=== PATIENT | female | born 1950 | race Caucasian/White ===

== ENCOUNTER 2019-08-20 17:04 | Inpatient (IN) | payer MEDICARE, BC ==
[2019-08-20] VITALS (18 sets, daily range): BP systolic 110–147; BP diastolic 67–95
[~2019-08-20] VITALS: Ht 162.6 cm; Wt 67.1 kg
[2019-08-20] MEDS ORDERED: MORPHINE SULFATE 4 MG/ML SYR/VIAL IV ONE (17:45)
[2019-08-20] MEDS ORDERED: ASPirin 81 mg TAB PO ONE (17:45)
[2019-08-20] MEDS ORDERED: ANGIOMAX 250 MG VIAL IV ONE (17:55)
[2019-08-20] MEDS ORDERED: ATROPINE SULF 1 MG/10ml SYR ONE (17:55)
[2019-08-20] MEDS ORDERED: MIDAZOLAM HCL 1MG/1ML-2 ML VIAL ONE (17:55)
[2019-08-20] MEDS ORDERED: fentaNYL CITRATE 100 MCG/2 ML VL ONE (17:55)
[2019-08-20] MEDS ORDERED: EPINEPHrine HCL 1 MG/10 ML SYRG ONE (17:55)
[2019-08-20] MEDS ORDERED: SODIUM CHL 0.9% 50 ML ONE (17:56)
[2019-08-20] MEDS ORDERED: VERAPAMIL 2.5MG/ML INJ 2ML VIAL IV ONE (17:57)
[2019-08-20] MEDS ORDERED: IODIXANOL 320MG/ML 100ML BTL IV ONE ×2 (17:57→18:52)
[2019-08-20] MEDS ORDERED: LIDOCAINE 2%HCL (LOCAL ANESTH.) INJ 20ML MDV ONE (17:57)
[2019-08-20] MEDS ORDERED: HEPARIN SODIUM (PORCINE) 5000 UNITS/ML 1ML VIAL ONE (17:57)
[2019-08-20] MEDS ORDERED: HEPARIN SODIUM (PORCINE) 5000 UNITS/ML 1ML VIAL IV ONE (18:00)
[2019-08-20 18:10] LABS: Eosinophils # (auto) 0 10 ^3/uL (0-0.8); Hemoglobin 19.4 g/dL (12.2-16.2); Lymphocytes # (auto) 1.8 10 ^3/uL (0.4-5.4); Monocytes # (auto) 0.7 10 ^3/uL (0-1.3); Monocytes % (auto) 4.9 % (0.0-12.0)
[2019-08-20 18:12] LABS: Basophils # (auto) 0.1 10 ^3/uL (0-0.2); Eosinophils % (auto) 0.3 % (0.0-7.0); Lymphocytes % (auto) 12.8 % (10.0-50.0); Mean Corpuscular Hemoglobin 30.4 pg (28.0-32.0); Mean Corpuscular Hgb Conc. 34.4 g/dL (32.0-36.0); Mean Corpuscular Volume 88.6 fL (80.0-100.0); Neutrophils # (auto) 11.6 10 ^3/uL (1.6-8.6); Nucleated Red Blood Cells % 0.4 %; Platelet Count (auto) 310 10^3/uL (140-450); Red Blood Cells 6.36 10^6/uL (4.0-5.20); Red Cell Distribution Width 13.7 % (11.8-14.3); White Blood Cell 14.3 10^3/uL (4.4-10.8)
[2019-08-20 18:15] LABS: Hematocrit 56.4 % (36.0-46.0); INR 1.05 (0.9-1.15); Partial Thromboplastin Time 33.5 sec (23.64-32.05)
[2019-08-20 18:19] LABS: Albumin 4.3 g/dL (3.4-5.0); Calcium 9.2 mg/dL (8.5-10.1); Magnesium 3.4 mg/dL (1.6-2.6); Potassium 3.5 mmol/L (3.5-5.1)
[2019-08-20 18:26] LABS: BUN/Creatinine Ratio 17.6; Bilirubin, Total 1.2 mg/dL (0.2-1.0); Total Protein 8.7 g/dL (6.4-8.2)
[2019-08-20] MEDS ORDERED: TICAGRELOR 90 MG TAB ONE (18:32)
[2019-08-20] MEDS ORDERED: ONDANSETRON HCL 4 MG/2 ML VIAL ONE (18:34)
[2019-08-20] MEDS ORDERED: MORPHINE SULF INJ 2 MG/ML SYRINGE 1ML IV PRN ×2 (19:00→19:30)
[2019-08-20] MEDS ORDERED: ONDANSETRON HCL 4 MG/2 ML VIAL IV PRN (19:00)
[2019-08-20] MEDS ORDERED: NITROGLYCERIN 0.4 MG SL TAB SL PRN ×3 (19:00→19:30)
[2019-08-20] MEDS ORDERED: ONDANSETRON ODT 4 MG TAB PO PRN (19:30)
[2019-08-20] MEDS: SODIUM CHLORIDE 0.9% 1,000 ML IV SCH (19:30)
--- NOTE | 2019-08-20 19:50 | NUR ---
RECEIVED PT FROM FUR FLOOR WORKER PT ARRIVED VIA ICU BED. VITAL SIGNS STABLE WITH NO COMPLAINTS OF CHEST PAIN, OR PAIN ANYWHERE ELSE BUT DOES REPORT FEELING SOB. RASTA SANDS EDUCATED ON VASCBAND IN PLACE TO LEFT RADIAL WRIST. NO BLEEDING/HEMATOMA OR S/S OF INFECTION NOTED. CONNECTED PT TO MONITOR AND EDUCATED ON USE OF CALL LIGHT, UNIT ORIENTATION, AND PLAN OF CARE. PT EDUCATED ON FALL PRECAUTIONS. WILL CONTINUE TO MONITOR AND ASSESS.
--- NOTE | 2019-08-20 19:52 | NUR ---
PT transferred to ICU via bed on bedside monitor and o2 at 2L NC. Primary RN at bedside. TR band to Rt wrist. Intact,clean,dry. pt denies chest pain at this time. VSS. Pt transferred to primary RN.
--- NOTE | 2019-08-20 20:35 | NUR ---
MD CHRISTIAN AT BEDSIDE MD CHRISTIAN AT BEDSIDE TO VISIT PT POST CATH. MADE HIM AWARE OF PT FEELING SOB AND ON 3L NC. TOLD THIS RN OF NEW CONSULTS PENDING FOR PT. WILL NOTIFY MD OF ANY SIGNIFICANT CHANGES.
--- NOTE | 2019-08-20 21:00 | NUR ---
PULMO CONSULT SPOKE WITH DR FLORES ABOUT PT RESPIRATORY STATUS- WHEEZES, SOB, NC AT 3L, DRY HACKING COUGH, HX OF SMOKING X 50 YEARS 1/2 PACK A DAY. ORDERED Q4 DUONEBS AND SAID MD RAMIREZ WILL SEE PT IN THE MORNING.
--- NOTE | 2019-08-20 21:45 | NUR ---
[facility] CALLED TO SPEAK WITH ABOUT CXRAY RESULTS. GINO PAGED AND CALLED BACK. HE SAID TO PAGE PULMO AND ER PHYSICIAN FOR CHEST TUBE PLACEMENT.
--- NOTE | 2019-08-20 21:53 | NUR ---
ORTIZ PAGED MARK PAGED TO MAKE HIM AWARE OF CXRAY RESULTS AND PERHAPS CHEST TUBE INSERTION. LEFT A MESSAGE AND AWAITING CALL BACK.
--- NOTE | 2019-08-20 21:55 | NUR ---
GINO SAYS PT NEEDS CHEST TUBE COREY TONIGHT. PAGED SP TO MAKE HIM AWARE OF INSERTION. AWAITING CALLBACK.
[2019-08-20] MEDS ORDERED: CARVEDILOL 3.125 MG TAB PO SCH (22:00)
[2019-08-20] MEDS: ALBUTEROL SULF 2.5 MG/0.5ML(0.5%) NEB SOLN NEB SCH (22:25)
[2019-08-20] MEDS: IPRATROPIUM BROM 0.5 MG/2.5ML INH SOL NEB SCH (22:25)
--- NOTE | 2019-08-20 22:35 | NUR ---
Respiratory note: PT STATES THAT IF SHE IS SLEEPING AT 0200, SHE WANTS TO REFUSE MED NEB
[2019-08-20] MEDS ORDERED: LIDOCAINE 2% (LOCAL ANESTH.) PF 5ml SDV ONE (23:00)
--- NOTE | 2019-08-20 23:00 | NUR ---
CHEST TUBE INSERTION DR SNOWDEN AT BEDSIDE TO INSERT CHEST TUBE PER MD CHRISTIAN STAT ORDER. CONSENT SIGNED AND VERIFIED BY THE PT. MD SNOWDEN AND GINO INFORMED HER OF RISKS AND BENEFITS OF CHEST TUBE PLACEMENT. LIDOCAINE GIVEN BY DURING PROCEDURE. PT TOLERATED WELL WITH VITAL SIGNS STABLE.
[2019-08-20] MEDS ORDERED: MORPHINE SULF INJ 2 MG/ML SYRINGE 1ML ONE (23:20)
[2019-08-20] MEDS: MORPHINE SULF INJ 2 MG/ML SYRINGE 1ML IV PRN (23:22)
[2019-08-20] MEDS: ATORVASTATIN 20 MG TAB PO SCH (23:27)
[2019-08-21] VITALS (74 sets, daily range): BP systolic 67–132; BP diastolic 38–88
[2019-08-21] MEDS: ALBUTEROL SULF 2.5 MG/0.5ML(0.5%) NEB SOLN NEB SCH ×6 (01:48→22:04)
[2019-08-21] MEDS: IPRATROPIUM BROM 0.5 MG/2.5ML INH SOL NEB SCH ×6 (01:48→22:04)
--- NOTE | 2019-08-21 03:16 | NUR ---
MD RAMON PAGED FOR PT STATING SHE HAS PAIN 10/10 AT CHEST TUBE SITE. AWAITING CALLBACK FOR NEW ORDERS.
[2019-08-21] MEDS: MORPHINE SULF INJ 2 MG/ML SYRINGE 1ML IV PRN (03:53)
[2019-08-21 04:36] LABS: Basophils # (auto) 0 10 ^3/uL (0-0.2); Basophils % (auto) 0.2 % (0.0-2.0); Eosinophils # (auto) 0 10 ^3/uL (0-0.8); Hematocrit 47.2 % (36.0-46.0); Hemoglobin 15.8 g/dL (12.2-16.2); Lymphocytes # (auto) 1.2 10 ^3/uL (0.4-5.4); Lymphocytes % (auto) 6.7 % (10.0-50.0); Mean Corpuscular Hemoglobin 30.1 pg (28.0-32.0); Mean Corpuscular Hgb Conc. 33.4 g/dL (32.0-36.0); Mean Corpuscular Volume 90.1 fL (80.0-100.0); Monocytes % (auto) 5.5 % (0.0-12.0); Neutrophils % (auto) 87.6 % (37.0-80.0); Nucleated Red Blood Cells % 0.1 %; Platelet Count (auto) 261 10^3/uL (140-450); Red Blood Cells 5.24 10^6/uL (4.0-5.20); Red Cell Distribution Width 13.7 % (11.8-14.3); White Blood Cell 18.2 10^3/uL (4.4-10.8)
[2019-08-21 04:59] LABS: Potassium 3.7 mmol/L (3.5-5.1)
--- NOTE | 2019-08-21 05:00 | NUR ---
MD RAMON GAVE NEW ORDERS FOR PAIN MEDICATIONS. SEE e-MAR.
--- NOTE | 2019-08-21 05:00 | NUR ---
PT ACTIVITY/ PT CARE PT UP OUT OF BED IN CHAIR. AMBULATES WITH STANDBY ASSISTANCE TO TOILET. VITAL SIGNS STABLE. DID PARTIAL STEFANY CHANGE WHEN PT WAS OUT OF BED.
[2019-08-21] MEDS ORDERED: HYDROcodone-ACET 10/325MG TAB ONE (05:13)
[2019-08-21] MEDS ORDERED: HYDROcodone-ACET 10/325MG TAB PO PRN (05:15)
[2019-08-21] MEDS: TICAGRELOR 90 MG TAB PO SCH ×2 (05:56→19:45)
--- NOTE | 2019-08-21 07:45 | NUR ---
OPENING Report received from Roxy MAGDALENO. Care initiated and initial assessment complete.
--- NOTE | 2019-08-21 07:52 | NUR ---
BEDSIDE: Juve An bedside assessing patient. No new orders received.
[2019-08-21] MEDS: MORPHINE SULFATE 4 MG/ML SYR/VIAL IV PRN ×2 (09:10→15:26)
[2019-08-21] MEDS: ENALAPRIL MALEATE 2.5 MG TAB PO SCH (09:13)
[2019-08-21] MEDS ORDERED: ASPirin 81 mg TAB PO SCH (10:00)
--- NOTE | 2019-08-21 11:45 | NUR ---
BEDSIDE: Eun Haq bedside assessing patient.
--- NOTE | 2019-08-21 11:53 | NUR ---
BEDSIDE: Valente Victor bedside.
[2019-08-21] MEDS: SODIUM CHLORIDE 0.9% 1,000 ML IV SCH (15:26)
[2019-08-21] MEDS ORDERED: LORazepam 2MG/ML-1ML VIAL ONE (16:39)
[2019-08-21] MEDS ORDERED: LORazepam 2MG/ML-1ML VIAL IV ONE (16:45)
--- NOTE | 2019-08-21 16:45 | NUR ---
BEDSIDE: Maurisio Forde bedside assessing start of chest tube insertion.
--- NOTE | 2019-08-21 18:00 | NUR ---
CHEST TUBE INSERTION COMPLETE CXR obtained and MD visualized bedside.
--- NOTE | 2019-08-21 19:30 | NUR ---
Opening Shift Note Received pt from day shift RN. Pt transferred from ICU to [facility] rm 265 pt still ICU status. Connected to bedside monitoring. Chest tube to right side and chest tube to right anterior chest both draining sanguinous fluid. Pt is fatigues but able to be aroused with shaking. Pt alert and oriented times four. States she isn't in any pain. Pt on nasal cannula at 4l sats at 91%. Full assessment done see interventions. VSS.
--- NOTE | 2019-08-21 20:00 | NUR ---
Received orders form .
--- NOTE | 2019-08-21 21:00 | NUR ---
Pt's oxygen sats in high 80's. Switched pt to simple mask at 6l. Pt responded and sats in 90's
[2019-08-21] MEDS: ATORVASTATIN 20 MG TAB PO SCH (22:00)
--- NOTE | 2019-08-21 22:34 | NUR ---
Pt restless and moving around trying to get out of bed. Oxygen sats in high 80's. made dr. Goodrich aware of pt's presentation. new orders received.
[2019-08-21] MEDS ORDERED: LORazepam 2MG/ML-1ML VIAL IV PRN (23:45)
[2019-08-22] VITALS (93 sets, daily range): BP systolic 72–159; BP diastolic 35–90
--- NOTE | 2019-08-22 00:20 | NUR ---
Mercer catheter inserted in one successful attempt. Pt verbalized understanding for the need of mercer. Pt tolerated well.
--- NOTE | 2019-08-22 01:10 | NUR ---
Pt confused and increased work of breathing with high respiratory rate. Pt sats 88%. Placed on simple mask at 8 l. Lungs sound very course with crackles. Stopped NS at this time. Chest tube output sanguineous
[2019-08-22] MEDS: ALBUTEROL SULF 2.5 MG/0.5ML(0.5%) NEB SOLN NEB SCH ×6 (02:37→22:00)
[2019-08-22] MEDS: IPRATROPIUM BROM 0.5 MG/2.5ML INH SOL NEB SCH ×6 (02:37→22:00)
--- NOTE | 2019-08-22 03:10 | NUR ---
Called Dr. Forde to make aware of pt change of condition. Pt very lethargic with high respiratory rate and low sats despite oxygen delivery. Audible course lungs. Chest tube output fluid now frothy and pink. New orders received for lasix 40 mg, stat chest x ray, stat ABG, and to place on high flow.
[2019-08-22] MEDS ORDERED: FUROSEMIDE 40 MG/4 ML VIAL ONE (03:14)
[2019-08-22] MEDS ORDERED: ETOMIDATE (2MG/ML) 20ML VIAL IV ONE (03:24)
[2019-08-22] MEDS ORDERED: ROCURONIUM 10MG/ML 10ML VIAL IV ONE (03:24)
[2019-08-22] MEDS ORDERED: SUCCINYLCHOLINE CHLORIDE 20 MG/ML 10ML VIAL IV ONE (03:25)
[2019-08-22] MEDS ORDERED: FUROSEMIDE 40 MG/4 ML VIAL IV ONE ×3 (03:30→12:45)
--- NOTE | 2019-08-22 03:30 | NUR ---
Dr. Forde at bedside assessing pt. aware of critical ABG and going to intubate pt.
[2019-08-22] MEDS ORDERED: MIDAZOLAM HCL 1MG/1ML-2 ML VIAL ONE ×2 (03:41→03:43)
[2019-08-22] MEDS ORDERED: fentaNYL Drip 2500mCg/250mlNS 250 ML IV ONE (03:46)
[2019-08-22] MEDS ORDERED: MIDAZOLAM DRIP 50 mg/50mL 50 ML IV ONE (03:46)
--- NOTE | 2019-08-22 03:50 | NUR ---
Pt intubated by Dr. Forde. RSI meds given, Rocuronium and etomidate given per MD. ET size 8.0 and 24 at the lip. Vent settings rate 16, tidal volume 400, fio2 100%, peep of 3 Sedated on versed and fentanyl.
--- NOTE | 2019-08-22 04:34 | NUR ---
EKG done showing a-fib RVR OF 167. Dr. Juve rodriguez.
[2019-08-22 04:48] LABS: Phosphorus 4.1 mg/dL (2.5-4.90); Uric Acid 3.2 mg/dL (2.6-6.0)
[2019-08-22] MEDS: TICAGRELOR 90 MG TAB PO SCH ×2 (04:49→18:15)
[2019-08-22] MEDS: SODIUM CHLORIDE 0.9% 1,000 ML IV SCH ×2 (04:50→23:21)
[2019-08-22] MEDS ORDERED: NOREPINEPHRINE 8 MG/250ML KIT 250 ML IV ONE (05:06)
--- NOTE | 2019-08-22 05:06 | NUR ---
Called Dr. Forde about pt's low b/p of 58/38. New order for levophed.
--- NOTE | 2019-08-22 05:40 | NUR ---
Called pt's , Alex, to give an update about pt status and change of condition. Pt's was very upset and stated she didn't want to be intubated or have life saving measures done. No paperwork was signed in the chart and no order was documented about any DNR status.
--- NOTE | 2019-08-22 06:00 | NUR ---
Dr. An paged again for a-fib RVR
[2019-08-22 06:26] LABS: Basophils # (auto) 0 10 ^3/uL (0-0.2); Basophils % (auto) 0.1 % (0.0-2.0); Eosinophils # (auto) 0 10 ^3/uL (0-0.8); Hematocrit 47.4 % (36.0-46.0); Hemoglobin 15.7 g/dL (12.2-16.2); Lymphocytes # (auto) 0.6 10 ^3/uL (0.4-5.4); Mean Corpuscular Hemoglobin 30.2 pg (28.0-32.0); Mean Corpuscular Hgb Conc. 33.1 g/dL (32.0-36.0); Mean Corpuscular Volume 91.4 fL (80.0-100.0); Monocytes # (auto) 1.4 10 ^3/uL (0-1.3); Monocytes % (auto) 6.4 % (0.0-12.0); Neutrophils # (auto) 19.3 10 ^3/uL (1.6-8.6); Neutrophils % (auto) 90.5 % (37.0-80.0); Platelet Count (auto) 263 10^3/uL (140-450); Red Blood Cells 5.19 10^6/uL (4.0-5.20); Red Cell Distribution Width 13.9 % (11.8-14.3); White Blood Cell 21.3 10^3/uL (4.4-10.8)
[2019-08-22 06:33] LABS: Urine Bacteria FEW /hpf (None Seen); Urine Blood 2+ /uL (Negative); Urine Hyaline Cast FEW /lpf (0 - 2); Urine Mucus FEW (None Seen); Urine WBC 3 /hpf (0 - 5)
[2019-08-22 06:52] LABS: Sodium Urine 58 mmol/L (40-220)
[2019-08-22 06:56] LABS: Creatinine, Urine 171 mg/dL (30.0-125.0)
[2019-08-22 06:57] LABS: Calcium 7.8 mg/dL (8.5-10.1); Potassium 4.3 mmol/L (3.5-5.1)
[2019-08-22 07:00] LABS: BUN/Creatinine Ratio 22.1; Bilirubin, Total 2.4 mg/dL (0.2-1.0); Total Protein 6.7 g/dL (6.4-8.2)
--- NOTE | 2019-08-22 07:40 | NUR ---
INITIAL CONTACT Report received from Suzanne MAGDALENO, care assumed. Patient is intubated on ventilator. Tolerating ventilation at this time. Oxygen saturation 95%. Patient has elevated respiratory rate 25. Lungs clear anteriorly but coarse posterior. Pupils equal and reactive to light. Patient attempted to open eyes upon repositioning. Pulses palpable radial and pedal bilaterally. Heart rate elevated sinus rhythm with frequent ectopy of PAC and intermittent runs of atrial fibrillation. paged earlier this morning, but has not returned page. Blood pressure maintaining stability with levophed drip. Bowel sounds hypoactive, OGT clamped. Juárez catheter present, patent, and secured below bladder. Skin intact. Gentle Optifoam placed on sacrum for prevention. Patient on frequent turning schedule. SCD's on bilateral lower extremities. Bed locked in lowest position, alarms in place. Will continue to monitor. Patients Alex at bedside, updated on status and plan of care.
--- NOTE | 2019-08-22 07:51 | NUR ---
Pt's wants to talk to MD about pt's status and he is going to sign code status sheet based on pt's wishes. Report given and care endorsed to RASTA Gamboa.
[2019-08-22] MEDS: MIDAZOLAM DRIP 50 mg/50mL 50 ML IV SCH ×3 (08:27→23:11)
[2019-08-22] MEDS: NOREPINEPHRINE 8 MG/250ML KIT 250 ML IV SCH ×2 (08:27→16:15)
[2019-08-22] MEDS: fentaNYL Drip 2500mCg/250mlNS 250 ML IV SCH (08:27)
--- NOTE | 2019-08-22 08:45 | NUR ---
TEMPERATURE Patient oral temperature 103.0. Rectal temperature 103.1, ice packs placed on trunk, fan in place, and room temperature decreased. paged regarding orders for Tylenol. Awaiting call back.
--- NOTE | 2019-08-22 09:30 | NUR ---
AM CXR REVIEWED, ETT RETRACTED AND IS NOW SECURED AT 22 CM AT THE LIP WITH ESEQUIEL. EQUAL BILAT CHEST RISE AND FALL NOTED. SPO2 96% ON VENTILATOR.
--- NOTE | 2019-08-22 09:33 | NUR ---
RETURNED PAGE Orders obtained for Tylenol.
[2019-08-22] MEDS ORDERED: ACETAMINOPHEN 500 MG TAB PO PRN (09:45)
--- NOTE | 2019-08-22 09:45 | NUR ---
RADIOLOGY X-ray tech at bedside.
[2019-08-22] MEDS: ENALAPRIL MALEATE 2.5 MG TAB PO SCH (09:47)
--- NOTE | 2019-08-22 09:55 | NUR ---
LAB pv design and installation technician at bedside for blood draw.
[2019-08-22] MEDS: ACETAMINOPHEN 325 MG TAB PO PRN ×2 (09:59→16:15)
--- NOTE | 2019-08-22 10:00 | NUR ---
TEMPERATURE Patient temperature 102.7, Tylenol PO given through OGT. Will continue to monitor.
--- NOTE | 2019-08-22 11:06 | NUR ---
MD VISIT at bedside assessing patient. MD aware of labs, intubation, and ectopy. MD aware, no new orders received at this time. Will continue to monitor.
--- NOTE | 2019-08-22 11:25 | NUR ---
MD VISIT at bedside assessing patient. MD consenting patients on central line placement. Order received.
--- NOTE | 2019-08-22 12:18 | NUR ---
PATIENT PROCEDURE at bedside for Right IJ central line placement and left radial arterial line placement. Consents signed by and placed in chart. Patient tolerated procedure well. Blood pressure did decrease and required increase in vasopressor therapy.
--- NOTE | 2019-08-22 13:00 | NUR ---
CXR X-ray tech at bedside to confirm central line placement.
[2019-08-22] MEDS: PIPERACILLIN-TAZOB 3.375GM 100 ML IV SCH ×2 (13:18→18:14)
[2019-08-22] MEDS: ASPirin 81 mg TAB PO SCH (13:18)
--- NOTE | 2019-08-22 14:00 | NUR ---
LABS Blood labs obtained from arterial line and sent to lab.
[2019-08-22] MEDS: PHENYLEPHRINE IV 250 ML IV SCH ×2 (14:22→22:42)
--- NOTE | 2019-08-22 14:22 | NUR ---
PAGED Notified of increase cardiac ectopy. ordered for one time dose of Digoxin and EKG to be performed. Orders placed.
[2019-08-22] MEDS ORDERED: DIGOXIN (250MCG/ML) 2 ML AMPULE IV ONE (14:30)
--- NOTE | 2019-08-22 14:40 | NUR ---
FAMILY at bedside.
--- NOTE | 2019-08-22 16:24 | NUR ---
TEMPERATURE rectal temp 100.9, PRN Tylenol given. Will continue to monitor temperature.
--- NOTE | 2019-08-22 16:42 | NUR ---
EKG EKG performed per MD order. One shows Sinus tachycardia and the other atrial fibrillation. MD to be notified.
--- NOTE | 2019-08-22 17:55 | NUR ---
UPDATE aware of EKG results. Orders obtained for Amiodarone drip protocol. Orders placed.
[2019-08-22] MEDS ORDERED: AMIODARONE HCL 150 MG in D5W 5% 100 ML IV ONE (18:00)
--- NOTE | 2019-08-22 18:00 | NUR ---
CHEST TUBE Right upper quadrant CT: [address]: 20 cc
[2019-08-22] MEDS ORDERED: AMIODARONE 450mg/250ml AE 250 ML IV SCH (18:04)
--- NOTE | 2019-08-22 19:39 | NUR ---
REPORT Report given to Cristine MAGDALENO, care endorsed.
--- NOTE | 2019-08-22 20:00 | NUR ---
REPORT RECEIVEDE AND ASSUMED CARE; SEE INTERVENTIONS FOR ASSESSMENT; SEE IV SPREADSHEET FOR GTTS; VS STABLE AT THIS TIME WITH PT. ON LEVOPHED GTT; WILL CONT. TO MONITOR.
--- NOTE | 2019-08-22 22:10 | NUR ---
REPORT GIVEN TO RASTA BRADSHAW IN ICU AND PATIENT TRANSFERRED TO ICU BED #107.
--- NOTE | 2019-08-22 22:27 | NUR ---
Admit to ICU on vent DOMINIQUE ROWLAND admitted to ICU via bed on personnel monitor, intubated and connected to portable ventilator by Respiratory Therapist. Patient connected to mechanical ventilator by therapist, RAMIROM at bedside. Patient connected to ICU monitoring, weighed by bed scale, oriented to Carolina samson RN, unit, ventilator and sedation.
--- NOTE | 2019-08-22 22:30 | NUR ---
ASSESSMENT Received patient sedated with IV Versed at 10mg/hr and IV Fentanyl at 100mcg/hr. Patient open eyes to stimuli. Pupils 2mm both sluggishly reactive to light. Rectal temp 99.1F Intubated and ventilated on AC mode, rate 22, TV 400, PEEP 3, FiO2 80%. Not synching the vent - will titrate sedation. Saturation 100%. Lung sounds - crackles all throughout. Chest tubes x 2 upper and lower right chest connected both to atrium drainage bottle with -20cm suction pressure - dressing intact, tubings secured. Noted some intermittent air bubbles in the upper chest tube bottle - will monitor. ECG - in and out of Atrial Fibrillation to Sinus rhythm with PACs. Patient is on IV Amiodarone drip. BP 100-130 mmHg, on IV Levophed at 24mcg/min will titrate to keep SBP >90 mmHg With Left radial Arterial line - leveled and zeroed, Readings correlates with the NIBP Patient with OGT-clamped,placement checked - with light greenish aspirate. Abdomen soft, hypoactive BS Juárez catheter in placed with light jose guadalupe colored clear urine. Skin intact. SCDs at both legs IV lines: Right IJ TLC - dressing dry and intact,see IV Spreadsheet for IV drips Right FA G20 -patent,intact - saline locked Right wrist G20 - leaking, will discontinue Left FA G18 - patent, intact - saline locked will continue to monitor
[2019-08-22] MEDS: ATORVASTATIN 20 MG TAB PO SCH (23:16)
[2019-08-23] VITALS (102 sets, daily range): BP systolic 76–166; BP diastolic 33–107
[2019-08-23] MEDS: AMIODARONE 450mg/250ml AE 250 ML IV SCH ×2 (00:23→03:52)
[2019-08-23] MEDS: PIPERACILLIN-TAZOB 3.375GM 100 ML IV SCH ×4 (00:28→17:33)
--- NOTE | 2019-08-23 00:30 | NUR ---
TEMP 100.6 ICE PACKS APPLIED COLD COMPRESS ON FOREHEAD WILL GIVE TYLENOL WILL CONTINUE TO MONITOR
[2019-08-23] MEDS: ACETAMINOPHEN 325 MG TAB PO PRN ×3 (00:35→14:32)
--- NOTE | 2019-08-23 01:28 | NUR ---
BP LABILE PATIENT'S BP LABILE SBP 88-110 [facility] WILL KEEP IV LEVOPHED AT SAME RATE FOR NOW UNTIL MORE STABLE SEE IV SPREADSHEET FOR TITRATIONS
[2019-08-23] MEDS: IPRATROPIUM BROM 0.5 MG/2.5ML INH SOL NEB SCH ×6 (02:00→22:23)
[2019-08-23] MEDS: ALBUTEROL SULF 2.5 MG/0.5ML(0.5%) NEB SOLN NEB SCH ×6 (02:00→22:23)
--- NOTE | 2019-08-23 02:40 | NUR ---
TEMP PATIENT'S TEMP STILL 100.8 F SPONGE BATH DONE LINENS CHANGED COLD COMPRESS ON FOREHEAD WILL CONTINUE TO MONITOR
--- NOTE | 2019-08-23 03:30 | NUR ---
TEMP RE-ASSESS PATIENT TEMP TRENDING DOWN 100.2F WILL CONTINUE TO MONITOR
[2019-08-23] MEDS: fentaNYL Drip 2500mCg/250mlNS 250 ML IV SCH ×2 (03:48→18:22)
[2019-08-23] MEDS: NOREPINEPHRINE 8 MG/250ML KIT 250 ML IV SCH ×2 (03:53→12:06)
[2019-08-23] MEDS: MIDAZOLAM DRIP 50 mg/50mL 50 ML IV SCH ×4 (05:10→23:35)
[2019-08-23 05:25] LABS: Basophils # (auto) 0.2 10 ^3/uL (0-0.2); Basophils % (auto) 0.9 % (0.0-2.0); Eosinophils # (auto) 0.1 10 ^3/uL (0-0.8); Eosinophils % (auto) 0.3 % (0.0-7.0); Hematocrit 41.3 % (36.0-46.0); Hemoglobin 13.9 g/dL (12.2-16.2); Lymphocytes # (auto) 1.7 10 ^3/uL (0.4-5.4); Lymphocytes % (auto) 8.1 % (10.0-50.0); Mean Corpuscular Hemoglobin 30.1 pg (28.0-32.0); Mean Corpuscular Hgb Conc. 33.6 g/dL (32.0-36.0); Mean Corpuscular Volume 89.5 fL (80.0-100.0); Monocytes # (auto) 1.4 10 ^3/uL (0-1.3); Monocytes % (auto) 6.5 % (0.0-12.0); Neutrophils # (auto) 17.7 10 ^3/uL (1.6-8.6); Neutrophils % (auto) 84.2 % (37.0-80.0); Nucleated Red Blood Cells % 0.1 %; Platelet Count (auto) 236 10^3/uL (140-450); Red Blood Cells 4.62 10^6/uL (4.0-5.20); Red Cell Distribution Width 13.4 % (11.8-14.3)
[2019-08-23 05:47] LABS: Potassium 3.6 mmol/L (3.5-5.1)
[2019-08-23] MEDS: FUROSEMIDE 40 MG/4 ML VIAL IV SCH ×2 (05:53→17:34)
[2019-08-23 05:55] LABS: Albumin 2.2 g/dL (3.4-5.0); BUN/Creatinine Ratio 23.6; Bilirubin, Total 5.1 mg/dL (0.2-1.0); Total Protein 5.7 g/dL (6.4-8.2)
[2019-08-23] MEDS: TICAGRELOR 90 MG TAB PO SCH ×2 (05:56→17:33)
--- NOTE | 2019-08-23 06:04 | NUR ---
CHEST TUBE OUTPUT RIGHT UPPER CHEST = 10 ML RIGHT LOWER LATERAL CHEST = 30 ML
--- NOTE | 2019-08-23 06:12 | NUR ---
CALLED PATIENT'S KOBI CALLED. CORRECT PASSWORD GIVEN. UPDATED HIM OF PATIENT'S CONDITION. ALL QUESTIONS ANSWERED. VERBALIZED UNDERSTANDING
--- NOTE | 2019-08-23 06:56 | NUR ---
COOLING MEASURES PROVIDED
[2019-08-23] MEDS: PHENYLEPHRINE IV 250 ML IV SCH ×3 (07:02→23:42)
--- NOTE | 2019-08-23 07:30 | NUR ---
REPORT REPORT GIVEN TO RASTA GUZMÁN
--- NOTE | 2019-08-23 07:45 | NUR ---
DR. CHRISTIAN Provider/Hospitalist at bedside. GAVE UPDATE ON PT. NEW ORDERS RECEIVED.
--- NOTE | 2019-08-23 07:50 | NUR ---
ASSESS- PT. LYING IN BED ON VENT SIZE# 8.0 ET, 22 AT THE LIP, AC-22, TV-400, PEEP-3, FIO2-40%. LUNGS COARSE DAMON. INSPIRATORY AND EXPIRATORY. PT. HAS HYPOACTIVE GAG/COUGH REFLEX. RESPONDS TO PAINFUL/TACTILE STIMULI. ON FENTANYL GTT. AT 150 MCG. AND VERSED GTT. AT 10 MG./HR. TLC RT. IJ INTACT. LEVOPHED GTT. AT 16 MCG. A-LINE LT. RADIAL INTACT WITH GOOD WAVEFORM. RADIAL PULSES STRONG, PALPABLE DAMON. DORSALIS PEDAL PULSES STRONG, PALPABLE DAMON. NO EDEMA. SCD'S DAMON. LE. ABD. SOFT, FLAT. BOWEL SOUNDS HYPOACTIVE ALL FOUR QUADRANTS. OGT IN PLACE, CLAMPED, PT. IS NPO. F/C TO GRAVITY WITH CLEAR YELLOW URINE. SKIN INTACT. BRUISES TO ARMS DAMON. RT. LATERAL CHEST WITH HEIMLICH VALVE WITH SANGINOUS DRAINAGE TO ATRIUM CT TO 20 CM. H20 SUCTION. RT. UPPER ANTERIOR CHEST WITH SM. CT TO 20 CM. H20 SUCTION WITH SEROSANGINOUS DRAINAGE. NO CREPITUS TO RT. SIDE OF CHEST WHERE CT'S ARE. RECTAL PROBE IN PLACE.
[2019-08-23] MEDS ORDERED: SPIRONOLACTONE 25 MG TAB PO ONE (08:00)
--- NOTE | 2019-08-23 08:06 | NUR ---
TEMP 100.8 RECTALLY. MED. WITH PT. WITH TYLENOL 650 MG. VIA OGT. ICE PACKS DAMON. AXILLA IN PLACE. NO COVERS ON PT. MONITORING TEMP.
--- NOTE | 2019-08-23 09:05 | NUR ---
TEMP REMAINS 100.8-100.9 RECTALLY. COOLING MEASURES IN PLACE.
[2019-08-23] MEDS: ASPirin 81 mg TAB PO SCH (09:28)
[2019-08-23] MEDS: FAMOTIDINE (10MG/ML) 2ML VL IV SCH ×2 (09:28→21:49)
[2019-08-23] MEDS: ENALAPRIL MALEATE 2.5 MG TAB PO SCH (10:00)
--- NOTE | 2019-08-23 10:23 | NUR ---
DR. RAMIREZ Provider/Hospitalist at bedside. GAVE UPDATE ON PT.
--- NOTE | 2019-08-23 11:00 | NUR ---
DR. POWELL Provider/Hospitalist at bedside.
--- NOTE | 2019-08-23 11:15 | NUR ---
DR. RAMIREZ AT PT'S. BS TO PLACE DONAVAN CATHETER CT. CONSENT GIVEN BY YEST., DR. RAMIREZ SIGNED CONSENT. DR. RAMIREZ PLACED DONAVAN CATHETER CT TO UPPER RT. LATERAL CHEST, CONNECTED TO ATRIUM CHEST DRAIN TO 20 CM. H20 SUCTION, SM. AMOUNT SANGINGOUS DRAINAGE, NO AIR LEAK, BIOPATCH PLACED WITH TEGADERM DSG. TO SITE. STAT CXR ORDERED.
--- NOTE | 2019-08-23 11:25 | NUR ---
DR. SILVERMAN Provider/Hospitalist at bedside.
--- NOTE | 2019-08-23 11:49 | NUR ---
WOUND CARE NOTE: IN TO SEE PATIENT AT THIS TIME PER WOUND CARE CONSULT REQUEST. PATIENT ADMITTED TO [facility] WITH DIAGNOSIS OF CHEST PAIN. PATIENT IS IN ICU, INTUBATED, SEDATED. CURRENT ROSE SCORE IS 11. PATIENT IS WOUND FREE AT THIS TIME. SHE WOULD BENEFIT FROM FREQUENT TURN SCHEDULE Q 2 HOURS, PRN CONDITION PERMITS, WITH PRESSURE REDISTRIBUTION USING PILLOW/WEDGES, BID/PRN APPLICATION WITH MOISTURE BARRIER CREAM, OPTIFOAM GENTLE SACRAL DRESSING PREVENTATIVE, DIETARY CONSULT, SKIN/WOUND CARE PLAN, CONTINUED MONITORING BY WOUND CARE TEAM.
[2019-08-23] MEDS: SODIUM CHLORIDE 0.9% 1,000 ML IV SCH (13:27)
--- NOTE | 2019-08-23 14:32 | NUR ---
TEMP 101.1 RECTALLY. MED. PT. WITH TYLENOL 650 MG. VIA OGT. ICE PACKS DAMON. AXILLA IN PLACE. NO COVERS ON PT.
--- NOTE | 2019-08-23 15:30 | NUR ---
RECTAL TEMP 101.3. COOLING MEASURES IN PLACE.
[2019-08-23] MEDS ORDERED: IOHEXOL 350 MG/ML 100ML IJ ONE (15:54)
--- NOTE | 2019-08-23 16:10 | NUR ---
Respiratory note: PT TRANSPORTED ON TRANSPORT VENT TO CT WITH OUT INCIDENT. PT RETURNED TO ROOM @ 16:30, AND PLACED ON PREVIOUS VENT SETTINGS. PT TOLERATED TRANSPORT WELL. RN, AND TECH AT BEDSIDE.
--- NOTE | 2019-08-23 16:10 | NUR ---
PT. TAKEN FOR CT CHEST WITH IV CONTRAST VIA BED ON PORTABLE VENT WITH RT ABBEY AND ON ENTRY LEVEL ADMINISTRATIVE ASSISTANT WITH EMERGENCY TRANSPORT MED BOX WITH RASTA MAGUIRE. GAVE CONSENT VIA PHONE WITH 2 RN'S.
--- NOTE | 2019-08-23 16:30 | NUR ---
PT. RETURNED FROM RADIOLOGY. RT CONNECTED PT. BACK TO VENT. ATTACHED TO ETIQUETTE COACH. CT'S X 2 INTACT, CONNECTED BACK TO 20 CM. H20 SUCTION. ALL LINES AND TUBES SECURE AND INTACT.
--- NOTE | 2019-08-23 16:45 | NUR ---
RECTAL TEMP DECREASED TO 100.6. ICE PACKS DAMON. AXILLA. MONITORING TEMP.
--- NOTE | 2019-08-23 16:50 | NUR ---
DR. RAMON Provider/Hospitalist at bedside. GAVE UPDATE ON PT. NEW ORDERS RECEIVED.
[2019-08-23] MEDS ORDERED: ACETAMINOPHEN 650 mg PER 20 mL UD GT PRN (17:15)
--- NOTE | 2019-08-23 20:00 | NUR ---
OPEN NOTES PATIENT REMAINED SEDATED AND INTUBATED. FEBRILE. IV LEVOPHED AT 10MCG/MIN. TWO CHEST TUBES IN PLACED AT THE RIGHT CHEST - DRESSING INTACT, TUBINGS SECURED. NO CREPITUS NOTED. NO AIR LEAK. FULL ASSESSMENT DONE -REFER INTERVENTIONS
--- NOTE | 2019-08-23 20:05 | NUR ---
TEMP 100.9F SPONGE BATH RENDERED ICE PACKS APPLIED WILL MEDICATE WITH TYLENOL
[2019-08-23] MEDS: ACETAMINOPHEN 650 mg PER 20 mL UD GT PRN (20:33)
--- NOTE | 2019-08-23 21:00 | NUR ---
Family called Patient's Alex called. Correct password given. updated him on patient's status and condition. All questions and concerns addressed. verbalized understanding.
[2019-08-23] MEDS: ATORVASTATIN 20 MG TAB PO SCH (21:51)
--- NOTE | 2019-08-23 23:00 | NUR ---
TEMP REMAINED 100.8F EVEN AFTER SPONGE BATH, ICE PACKS AND TYLENOL COOLING BLANKET PLACED WILL CONTINUE TO MONITOR
[2019-08-24] VITALS (108 sets, daily range): BP systolic 84–143; BP diastolic 41–71
[2019-08-24] MEDS: PIPERACILLIN-TAZOB 3.375GM 100 ML IV SCH ×4 (00:20→18:23)
[2019-08-24] MEDS: NOREPINEPHRINE 8 MG/250ML KIT 250 ML IV SCH (00:25)
[2019-08-24] MEDS: IPRATROPIUM BROM 0.5 MG/2.5ML INH SOL NEB SCH ×6 (02:15→22:24)
[2019-08-24] MEDS: ALBUTEROL SULF 2.5 MG/0.5ML(0.5%) NEB SOLN NEB SCH ×6 (02:15→22:24)
--- NOTE | 2019-08-24 04:30 | NUR ---
TEMP 100.2F SPONGE BATH DONE LINENS CHANGED KEPT ON COOLING BLANKET FEET COLD - COVERED WITH WARM BLANKET WILL CONTINUE TO MONITOR
--- NOTE | 2019-08-24 05:30 | NUR ---
TEMP 98.8F COOLING BLANKET TURNED OFF
[2019-08-24] MEDS: MIDAZOLAM DRIP 50 mg/50mL 50 ML IV SCH ×3 (05:46→20:58)
[2019-08-24] MEDS: FUROSEMIDE 40 MG/4 ML VIAL IV SCH ×2 (06:00→18:23)
[2019-08-24] MEDS: TICAGRELOR 90 MG TAB PO SCH ×2 (06:00→18:23)
--- NOTE | 2019-08-24 06:00 | NUR ---
CHEST TUBE OUTPUT UPPER CHEST = 40MLS MID LATERAL CHEST = 10MLS
[2019-08-24 06:15] LABS: Basophils # (auto) 0.1 10 ^3/uL (0-0.2); Basophils % (auto) 0.6 % (0.0-2.0); Eosinophils # (auto) 0.2 10 ^3/uL (0-0.8); Eosinophils % (auto) 1.2 % (0.0-7.0); Hematocrit 39.8 % (36.0-46.0); Hemoglobin 13.8 g/dL (12.2-16.2); Lymphocytes # (auto) 0.9 10 ^3/uL (0.4-5.4); Lymphocytes % (auto) 6.3 % (10.0-50.0); Mean Corpuscular Hemoglobin 30.8 pg (28.0-32.0); Mean Corpuscular Hgb Conc. 34.6 g/dL (32.0-36.0); Monocytes # (auto) 0.7 10 ^3/uL (0-1.3); Monocytes % (auto) 5.2 % (0.0-12.0); Neutrophils # (auto) 12.4 10 ^3/uL (1.6-8.6); Neutrophils % (auto) 86.7 % (37.0-80.0); Platelet Count (auto) 246 10^3/uL (140-450); Red Blood Cells 4.47 10^6/uL (4.0-5.20); Red Cell Distribution Width 13.6 % (11.8-14.3); White Blood Cell 14.4 10^3/uL (4.4-10.8)
[2019-08-24 06:26] LABS: Potassium 3.4 mmol/L (3.5-5.1)
[2019-08-24 06:39] LABS: Albumin 2.2 g/dL (3.4-5.0); BUN/Creatinine Ratio 25.5; Bilirubin, Total 5.1 mg/dL (0.2-1.0); Calcium 7.8 mg/dL (8.5-10.1); Phosphorus 1.9 mg/dL (2.5-4.90); Total Protein 6.3 g/dL (6.4-8.2)
--- NOTE | 2019-08-24 08:00 | NUR ---
DR CHRISTIAN AT BEDSIDE, EXAMINED PATIENT. AWARE OF LABS. NEW ORDER FOR POTASSIUM PHOSPHATE IV.
[2019-08-24] MEDS: PHENYLEPHRINE IV 250 ML IV SCH ×2 (08:02→16:56)
[2019-08-24] MEDS ORDERED: POTASSIUM PHOSPHATE 26.4 MEQ in SODIUM CHL 0.9% 100 ML IV ONE (08:15)
--- NOTE | 2019-08-24 09:05 | NUR ---
SPOKE WITH KOBI , HAD CORRECT PASSWORD, CLARIFIED WITH KOBI THAT PATIENT IS FULL CODE AT THIS TIME. ALL QUESTIONS/CONCERNS ADDRESSED. SECOND NURSE CHAGO MAGDALENO VERIFIED OVER PHONE WITH KOBI THAT PATIENT IS FULL CODE AT THIS TIME. REQUESTING TO COME IN TO GET PATIENTS PERSONAL BELONGINGS-WILL ASK CHARGE/DIRECTOR AND CALL KOBI BACK.
[2019-08-24] MEDS ORDERED: SPIRONOLACTONE 25 MG TAB PO ONE (09:15)
--- NOTE | 2019-08-24 09:15 | NUR ---
TEMP 101.1 RECTAL TEMP, COOLING BLANKET TURNED ON AT THIS TIME AND RECTAL PROBE CONNECTED TO COOLING BLANKET.
--- NOTE | 2019-08-24 09:22 | NUR ---
PER SHOE COBBLERRASTA BROWN FOR KOBI TO COME IN FOR 5 MINS TO SEE PATIENT AND OBTAIN PERSONAL BELONGINGS OF PATIENTS TO TAKE HOME, KOBI VERBALIZED UNDERSTANDING OF 5 MINS AND TO WEAR MASK. STATED HE WILL BE HERE IN ABOUT 15 MINS.
--- NOTE | 2019-08-24 09:42 | NUR ---
DR RAMIREZ AT BEDSIDE, EXAMINED PATIENT AND REVIEWED CXR. NEW ORDER TO CONSULT DR MONDRAGON FOR PERSISTENT PNUEMOTHORAX.
[2019-08-24] MEDS: ENALAPRIL MALEATE 2.5 MG TAB PO SCH (10:00)
[2019-08-24] MEDS: ASPirin 81 mg TAB PO SCH (10:11)
[2019-08-24] MEDS: FAMOTIDINE (10MG/ML) 2ML VL IV SCH ×2 (10:11→21:33)
--- NOTE | 2019-08-24 10:16 | NUR ---
SPOKE WITH DR RAMIREZ, SPOKE WITH DR MONDRAGON AND DR MONDRAGON STATED TO CONSULT DR HUDSON FOR PERSISTENT PNUEMOTHORAX, CONSULT FOR DR HUDSON PLACED AND DELFINA US AWARE. DR RAMON AT BEDSIDE AND EXAMINED PATIENT.
[2019-08-24] MEDS: fentaNYL Drip 2500mCg/250mlNS 250 ML IV SCH (10:30)
--- NOTE | 2019-08-24 10:37 | NUR ---
SPOKE WITH DR HUDSON, AWARE OF CONSULT, STATED HE WILL LOOK AT CT AND CXR.
--- NOTE | 2019-08-24 10:50 | NUR ---
FILIBERTO LEFT BEDSIDE Addendum: 08/24/19 at 1057 by Gonzalo Sharma RN TIME 0950 NOT 1050 Addendum: 08/24/19 at 1123 by Gonzalo Sharma RN TOOK ALL BELONGINGS EXCEPT YELLOW METAL RING WHICH IS ON PATIENT FINGER Addendum: 08/24/19 at 1545 by Gonzalo Sharma RN TOOK ALL BELONGINGS HOME EXCEPT YELLOW RING TO LEFT RING FINGER. Addendum: 08/24/19 at 1927 by Gonzalo Sharma RN LEFT BOTH UPPER AND LOWER DENTURES AT BEDSIDE
--- NOTE | 2019-08-24 10:56 | NUR ---
TEMP 99.2 RECTALLY
--- NOTE | 2019-08-24 11:10 | NUR ---
DR POWELL AT BEDSIDE, NO NEW ORDERS
--- NOTE | 2019-08-24 11:19 | NUR ---
DR SILVERMAN AT BEDSIDE
--- NOTE | 2019-08-24 12:42 | NUR ---
Consult If EN support indicated consider Jevity at 60 ml/hr per MD approval Est energy needs [id number] kcal (27-30 kcal/kg BW 62kg) Est protein needs 50-62g (0.8-1g/kg) Addendum: 08/24/19 at [address] Amended: Links added.
--- NOTE | 2019-08-24 14:00 | NUR ---
DR HUDSON ORDERED TO OBTAIN CONSENT FOR LARGE BORE CHEST TUBE PLACEMENT IN OR TOMORROW AT [address]. [address] RAMIREZ AWARE. CONSENT OBTAINED FROM KOBI AND VERIFIED BY SECOND NURSE ANDREZ MAGDALENO.
[2019-08-24 14:57] LABS: INR 1.17 (0.9-1.15); Partial Thromboplastin Time 35.6 sec (23.64-32.05)
--- NOTE | 2019-08-24 15:56 | NUR ---
assessment Patient is a 68 year old female in ICU. Per patients Alex prior to admission patient lived home with him and was independent. Per Alex patient had no need for DME. Per Alex patient came to ER for Chest pain and was admitted. I informed Alex patients post discharge needs to be determined once down graded form ICU. Alex verbalized understanding. Addendum: 08/24/19 at 1559 by Farrah MONTOYA Amended: Links added.
--- NOTE | 2019-08-24 18:00 | NUR ---
KOBI CALLED, UPDATED ON PLAN OF CARE. ALL QUESTIONS/CONCERNS ADDRESSED.
--- NOTE | 2019-08-24 19:30 | NUR ---
OPEN NOTES PATIENT REMAINED SEDATED AND INTUBATED. FEBRILE. ON COOLING BLANKET. SR, BP SUPPORTED WITH IV LEVOPHED AT 6MCG/MIN. TWO CHEST TUBES IN PLACED AT THE RIGHT CHEST - DRESSING INTACT, TUBINGS SECURED. NO CREPITUS/ SUBCUTANEOUS EMPHYSEMA NOTED. NO AIR LEAK. FOR CHANGING OF CHEST TUBE TOMORROW BY DR. HUDSON.TELEPHONE CONSENT GIVEN BY . HANDS AND FEET COLD - COVERED WITH WARM BLANKET. PULSES PALPABLE. PERIPHERAL IV AT LEFT FA LEAKING - DISCONTINUED. RIGHT FA - SALINE LOCKED. RIGHT IJ TLC -DRESSING DRY AND INTACT. ALL PORTS IN USE. FULL ASSESSMENT DONE -REFER INTERVENTIONS WILL CONTINUE TO MONITOR
[2019-08-24] MEDS: ATORVASTATIN 20 MG TAB PO SCH (21:35)
--- NOTE | 2019-08-24 22:00 | NUR ---
PATIENT IS STACKING BREATHS SEDATION INCREASED REFER IV SPREADSHEET
[2019-08-25] VITALS (102 sets, daily range): BP systolic 81–141; BP diastolic 43–132
[2019-08-25] MEDS: PHENYLEPHRINE IV 250 ML IV SCH ×3 (00:42→15:39)
[2019-08-25] MEDS: ALBUTEROL SULF 2.5 MG/0.5ML(0.5%) NEB SOLN NEB SCH ×6 (02:30→22:09)
[2019-08-25] MEDS: IPRATROPIUM BROM 0.5 MG/2.5ML INH SOL NEB SCH ×6 (02:30→22:09)
[2019-08-25] MEDS: MIDAZOLAM DRIP 50 mg/50mL 50 ML IV SCH ×3 (03:48→19:53)
--- NOTE | 2019-08-25 04:20 | NUR ---
Patient bathe/linen change Patient cleaned with CHG wipes. Skin integrity assessed for any changes. Linens changed. Patient repositioned for comfort.
[2019-08-25 05:25] LABS: Basophils # (auto) 0.1 10 ^3/uL (0-0.2); Basophils % (auto) 0.8 % (0.0-2.0); Eosinophils # (auto) 0.2 10 ^3/uL (0-0.8); Eosinophils % (auto) 1.5 % (0.0-7.0); Hematocrit 40.5 % (36.0-46.0); Hemoglobin 14.1 g/dL (12.2-16.2); Lymphocytes # (auto) 0.8 10 ^3/uL (0.4-5.4); Lymphocytes % (auto) 5.9 % (10.0-50.0); Mean Corpuscular Hemoglobin 30.9 pg (28.0-32.0); Mean Corpuscular Hgb Conc. 34.8 g/dL (32.0-36.0); Mean Corpuscular Volume 88.9 fL (80.0-100.0); Monocytes # (auto) 0.8 10 ^3/uL (0-1.3); Monocytes % (auto) 5.9 % (0.0-12.0); Neutrophils # (auto) 11.5 10 ^3/uL (1.6-8.6); Neutrophils % (auto) 85.9 % (37.0-80.0); Nucleated Red Blood Cells % 0.1 %; Platelet Count (auto) 291 10^3/uL (140-450); Red Blood Cells 4.56 10^6/uL (4.0-5.20); Red Cell Distribution Width 13.8 % (11.8-14.3); White Blood Cell 13.4 10^3/uL (4.4-10.8)
[2019-08-25 05:53] LABS: Albumin 2.1 g/dL (3.4-5.0); Calcium 7.8 mg/dL (8.5-10.1); Potassium 3.2 mmol/L (3.5-5.1)
[2019-08-25 05:56] LABS: BUN/Creatinine Ratio 32.1; Total Protein 6.4 g/dL (6.4-8.2)
[2019-08-25] MEDS: PIPERACILLIN-TAZOB 3.375GM 100 ML IV SCH ×5 (05:59→23:51)
[2019-08-25] MEDS: TICAGRELOR 90 MG TAB PO SCH ×2 (06:00→18:30)
--- NOTE | 2019-08-25 06:00 | NUR ---
BRILINTA NOT GIVEN PATIENT WILL HAVE CHEST TUBE INSERTION TODAY HELD BRILINTA. WILL ASKED DAY SHIFT TO INFORM DR. HUDSON
[2019-08-25] MEDS: FUROSEMIDE 40 MG/4 ML VIAL IV SCH ×2 (06:07→17:17)
--- NOTE | 2019-08-25 06:30 | NUR ---
Family updated on pt status of DOMINIQUE ROWLAND called,correct password given. updated on patient's status and condition. All questions and concerns addressed. verbalized understanding.
--- NOTE | 2019-08-25 06:35 | NUR ---
PAGED DR. RAMON FOR LAB RESULTS
[2019-08-25] MEDS ORDERED: POTASSIUM PHOSPHATE 22 MEQ in SODIUM CHL 0.9% 100 ML IV ONE (07:15)
--- NOTE | 2019-08-25 07:22 | NUR ---
RECEIVED ORDER FROM DR. RAMON SEE EMAR
--- NOTE | 2019-08-25 07:22 | NUR ---
REPORT GIVEN TO RASTA PAYNE
--- NOTE | 2019-08-25 08:00 | NUR ---
OPEN RECEIVED REPORT FROM NIGHT RN. ASSUMED CARE OF ICU PATIENT, FULL CODE STATUS. PATIENT HAS PENDING PROCEDURE LATER ON THIS AM, PLANNED WITH DR. HUDSON. PATIENT SEDATED ON VENT. ETT #8.0, 22 CM AT LIP. CURRENT FIO2 AT 40 %, PEEP +3. PATIENT HAS HEIMLICH CHEST TUBE TO RIGHT LOWER LATERAL CHEST TO ATRIUM DRAINAGE COLLECTION CHAMBER AND CHEST TUBE TO UPPER RIGHT CHEST, MEDIAL TO ATRIUM COLLECTION CHAMBER. BOTH -20 CM OF H2O SUCTION. NO CREPITUS NOTED TO CHEST. LUBIN TO GRAVITY. RIGHT IJ TLC WITH CURRENT GTT'S, PATENT AND PORTS FLUSHED. SEE IV SPREAD SHEET FOR FURTHER GTT'S AND TITRATIONS MADE. SEE TRADE RECRUITER AND V/S FLOW SHEET FOR FURTHER PATIENT INFORMATION. WILL CONTINUE TO TURN PATIENT Q2HRS AND PRN. OFF LOADING PRESSURE AREAS WITH PILLOWS. CONTINUE CARE.
[2019-08-25] MEDS: NOREPINEPHRINE 8 MG/250ML KIT 250 ML IV SCH (08:35)
[2019-08-25] MEDS: fentaNYL Drip 2500mCg/250mlNS 250 ML IV SCH ×3 (08:35→18:09)
[2019-08-25] MEDS ORDERED: POTASSIUM PHOSPHATE 26.4 MEQ in SODIUM CHL 0.9% 100 ML IV ONE (09:15)
[2019-08-25] MEDS: ENALAPRIL MALEATE 2.5 MG TAB PO SCH (09:41)
[2019-08-25] MEDS: FAMOTIDINE (10MG/ML) 2ML VL IV SCH ×2 (09:41→22:14)
[2019-08-25] MEDS: ASPirin 81 mg TAB PO SCH (09:41)
--- NOTE | 2019-08-25 10:00 | NUR ---
TEMP 100.9: COOLING MEASURES STARTED AT THIS TIME. PLACED ICE PACKS TO PATIENT'S CORE, UNDERNEATH DAMON ARMS. CURRENT TEMP 100.9 RECTALLY. WILL CONTINUE TO MONITOR. BLANKETS TAKEN OFF PATIENT AT THIS TIME.
[2019-08-25] MEDS ORDERED: LIDOCAINE W/ EPINEPHRINE 1% 20ML VIAL ONE (10:29)
--- NOTE | 2019-08-25 10:30 | NUR ---
DR. RAMIREZ AT BEDSIDE: UPDATE MD UPDATED ON PT'S CURRENT STATUS, LABS AND POC FOR TODAY. PATIENT TO GO FOR PROCEDURE WITH DR. HUDSON SOON. WAITING FOR OR TEAM . CONTINUE CARE.
[2019-08-25] MEDS ORDERED: ONDANSETRON HCL 4 MG/2 ML VIAL ONE (10:35)
[2019-08-25] MEDS ORDERED: KETAMINE HCL 10 ML ONE (10:35)
[2019-08-25] MEDS ORDERED: fentaNYL CITRATE 100 MCG/2 ML VL ONE (10:35)
[2019-08-25] MEDS ORDERED: MIDAZOLAM HCL 1MG/1ML-2 ML VIAL ONE (10:35)
[2019-08-25] MEDS ORDERED: PROPOFOL 10 MG/ML 20 ML IV ONE (10:35)
--- NOTE | 2019-08-25 10:45 | NUR ---
TAKEN TO OR AT THIS TIME PENDING PROCEDURE WITH DR. HUDSON THIS AM. PATIENT TAKEN IN BED, HOOKED UP TO TELE MONITOR. PATIENT BEING BAGGED BY Latoya PAREKH, OR NURSES AT BEDSIDE. CONSENTS AND SURGICAL CHECKLIST FILLED OUT AND TAKEN WITH PATIENT TO OR. VERSED GTT AT 12 MG/HR, FENTANYL GTT AT 200 MCG/HR. LEVOPHED GTT AT 5 MCG/MIN. TRANSFER CARE. DR. HUDSON INFORMED EARLIER THAT PATIENT'S BRILINTA HELD BY NOC RN THIS AM. CURRENT INR WITHIN NORMAL RANGE. MD VERBALIZES UNDERSTANDING.
[2019-08-25] MEDS ORDERED: HYDROmorphone HCL 2 MG/ML VL ONE (11:17)
--- NOTE | 2019-08-25 11:40 | NUR ---
BACK FROM OR: STATUS PATIENT BROUGHT BACK IN BED, HOOKED UP TO BEDSIDE TELE MONITOR. V/S STABLE. CURRENT V/S ARE HR 111, SATS 90% ON 40 % FIO2 VIA VENT. PATIENT PLACED BACK ON VENT WITH PREVIOUS SETTINGS. PATIENT NOW HAS X1 CHEST TUBE TO MID CLAVICULAR ANTERIOR RIGHT CHEST, #32 CM C.T., PLACED TO ATRIUM CHAMBER AT -20 CM OF H2O SUCTION. OTHER PREVIOUS CHEST TUBE REMOVED DURING PROCEDURE FROM EARLIER. DRESSING AROUND C.T. SITE, INTACT, CLEAN AND DRY. NO CREPITUS TO SITE. OGT CLAMPED. LUBIN TO GRAVITY. A-LINE RE-ZEROED AND LEVELED. SCD'S PLACED BACK ON TO DAMON LE. WILL CONTINUE TO MONITOR.
--- NOTE | 2019-08-25 15:30 | NUR ---
DR. RAMON AT BEDSIDE: UPDATE MD UPDATED ON PT'S CURRENT STATUS, LABS AND POC FOR TODAY. ORDERS GIVEN AND TO BE CARRIED OUT. MD AT BEDSIDE ASSESSING PATIENT. WILL CONTINUE TO MONITOR. INFORMED MD ON PT'S PROCEDURE FROM TODAY.
--- NOTE | 2019-08-25 20:00 | NUR ---
OPEN ASSUMED CARE OF FEMALE PT ORALLY INTUBATED. PT SEDATED ON VERSED GTT 12 MG/HR, AND FENTANYL GTT AT 200 MCG/HR. PT GRIMACE TO TACTILE STIMULI, OTHERWISE NON RESPONSIVE. SR ON JUNIOR QA ANALYST. L. RADIAL SHREYA IN PLACE WITH GOOD WAVEFORM OBSERVED. PT ON LEVOPHED GTT 7 MCG/MIN. GTT'S INFUSING INTO R. IJ TLC WITH ALL PORTS PATENT. DRESSING CDI. R. UPPER CHEST TUBE IN PLACE DRAINING SMALL AMOUNT OF SEROUS SANGUINEOUS DRAINAGE INTO ATRIUM COLLECTION UNIT SECURED TO FLOOR. NO AIR LEAK OR CREPITUS. ATRIUM TO 20 CM SUCTION. LUBIN TO GRAVITY DRAINING CLEAR YELLOW URINE. DAMON SCD'S IN PLACE. HEALING BRUISE OBSERVED TO L. HIP. OPTIFOAM GENTLE SACRAL DRESSING IN PLACE PREVENTATIVE. NO SKIN BREAK OR REDNESS OBSERVED. BONY PROMINENCES AND DAMON HEELS OFFLOADED WITH PILLOWS. DRESSING OBSERVED TO R. LAT CHEST AND R. UPPER LATERAL CHEST PREVIOUS CHEST TUBE INSERTION SITES. DRESSINGS CDI. BED IN LOWEST LOCKED POSITION. SIDE RAILS UP X 2. HOB ELEVATED 30 DEGREES. PT IN FULL VIEW OF RN STATION. WILL CONTINUE TO MONITOR.
[2019-08-25] MEDS: ACETAMINOPHEN 650 mg PER 20 mL UD GT PRN (22:14)
[2019-08-25] MEDS: ATORVASTATIN 20 MG TAB PO SCH (22:14)
[2019-08-26] VITALS (107 sets, daily range): BP systolic 82–148; BP diastolic 42–76
[2019-08-26] MEDS: MIDAZOLAM DRIP 50 mg/50mL 50 ML IV SCH ×4 (01:13→21:50)
[2019-08-26] MEDS: PHENYLEPHRINE IV 250 ML IV SCH ×3 (01:42→18:17)
[2019-08-26] MEDS: IPRATROPIUM BROM 0.5 MG/2.5ML INH SOL NEB SCH ×6 (01:50→21:50)
[2019-08-26] MEDS: ALBUTEROL SULF 2.5 MG/0.5ML(0.5%) NEB SOLN NEB SCH ×6 (01:50→21:50)
--- NOTE | 2019-08-26 03:00 | NUR ---
Patient bathe/linen change Patient given complete bath. Skin integrity assessed for any changes. Linens changed. Patient repositioned for comfort.
[2019-08-26 04:05] LABS: Basophils # (auto) 0.1 10 ^3/uL (0-0.2); Basophils % (auto) 0.5 % (0.0-2.0); Eosinophils # (auto) 0.1 10 ^3/uL (0-0.8); Eosinophils % (auto) 1.2 % (0.0-7.0); Hematocrit 33.7 % (36.0-46.0); Hemoglobin 11.5 g/dL (12.2-16.2); Lymphocytes # (auto) 0.6 10 ^3/uL (0.4-5.4); Lymphocytes % (auto) 5.6 % (10.0-50.0); Mean Corpuscular Hemoglobin 30.5 pg (28.0-32.0); Mean Corpuscular Hgb Conc. 34.1 g/dL (32.0-36.0); Mean Corpuscular Volume 89.6 fL (80.0-100.0); Monocytes # (auto) 0.9 10 ^3/uL (0-1.3); Monocytes % (auto) 7.9 % (0.0-12.0); Neutrophils # (auto) 9.8 10 ^3/uL (1.6-8.6); Neutrophils % (auto) 84.8 % (37.0-80.0); Nucleated Red Blood Cells % 0.1 %; Platelet Count (auto) 301 10^3/uL (140-450); Red Blood Cells 3.76 10^6/uL (4.0-5.20); Red Cell Distribution Width 13.3 % (11.8-14.3); White Blood Cell 11.5 10^3/uL (4.4-10.8)
[2019-08-26] MEDS: NOREPINEPHRINE 8 MG/250ML KIT 250 ML IV SCH (04:05)
[2019-08-26 04:57] LABS: Albumin 1.4 g/dL (3.4-5.0)
[2019-08-26 05:01] LABS: Bilirubin, Total 3.4 mg/dL (0.2-1.0); Total Protein 4.4 g/dL (6.4-8.2)
[2019-08-26 05:34] LABS: Calcium 5.6 mg/dL (8.5-10.1); Potassium 2.4 mmol/L (3.5-5.1)
--- NOTE | 2019-08-26 05:45 | NUR ---
K+ 2.4 CA+ 5.6 MD ALVARADO. AWAIT C/B.
--- NOTE | 2019-08-26 05:57 | NUR ---
FAMILY CALL PT'S DILSHAD CALLED CALLED UNIT FOR UPDATE ON PT CONDITION. AFTER PASSWORD FOR PHONE GIVEN. UPDATE PROVIDED. ALL QUESTIONS AND CONCERNS ADDRESSED.
--- NOTE | 2019-08-26 06:15 | NUR ---
DR RAMON PAGED REGARDING AM LABS. AWAIT C/B.
--- NOTE | 2019-08-26 06:24 | NUR ---
SECOND PAGE TO DR SILVERMAN REGARDING AM LABS.
[2019-08-26] MEDS: PIPERACILLIN-TAZOB 3.375GM 100 ML IV SCH ×3 (06:27→18:17)
[2019-08-26] MEDS: TICAGRELOR 90 MG TAB PO SCH ×2 (06:27→18:17)
[2019-08-26] MEDS: fentaNYL Drip 2500mCg/250mlNS 250 ML IV SCH ×2 (06:28→21:06)
--- NOTE | 2019-08-26 06:53 | NUR ---
RADIOLOGIST CALLED UNIT PER RADIOLOGIST PT WITH INCREASING PNEUMOTHORAX S/P NEW CHEST TUBE PLACEMENT 08/25/19. LUIS OGDEN MD.
--- NOTE | 2019-08-26 07:25 | NUR ---
INITIAL CONTACT Report received from Miranda MAGDALENO, care assumed. Patient is intubated on ventilator, tolerating well. Oxygen saturation 97%. paged regarding CXR results this morning. Patient under sedation of Versed and Fentanyl, no distress noted. Pupils equal and reactive to light. Pulses palpable bilaterally. SCD's on bilateral lower extremities. Blood pressure stable on Levophed drip. Left radial arterial line present. Juárez catheter patent, present and secured below bladder. See skin/wound assessment. See IV spreadsheet. Alarms in place. Bed locked in lowest position, will continue to monitor.
--- NOTE | 2019-08-26 07:39 | NUR ---
MD RETURNED PAGED aware of low potassium level. Orders obtained for 40 MEQ IV. Orders placed.
--- NOTE | 2019-08-26 08:10 | NUR ---
TEMPERATURE Rectal temp 100.0, cooling measures initiated.
[2019-08-26] MEDS: POTASSIUM CHL 20MEQ/100ML 100 ML IV SCH ×5 (08:11→13:10)
--- NOTE | 2019-08-26 08:46 | NUR ---
NOTIFIED notified of CXR results and subcutaneous crepitus. aware.
[2019-08-26] MEDS: ENALAPRIL MALEATE 2.5 MG TAB PO SCH (09:52)
[2019-08-26] MEDS: ASPirin 81 mg TAB PO SCH (09:52)
[2019-08-26] MEDS: FAMOTIDINE (10MG/ML) 2ML VL IV SCH ×2 (09:52→21:42)
[2019-08-26] MEDS: ACETAMINOPHEN 650 mg PER 20 mL UD GT PRN ×2 (09:55→21:07)
--- NOTE | 2019-08-26 10:04 | NUR ---
MD VISIT at bedside rounding. MD aware of labs and imagining results. Orders obtain regarding labs and electrolytes.
--- NOTE | 2019-08-26 10:46 | NUR ---
MD VISIT at bedside. MD aware of labs, imaging and chest tube. MD reviewing medical charts.
--- NOTE | 2019-08-26 11:00 | NUR ---
FAMILY Spoke with patients regarding status and plan of care. All questions and concerns addressed.
--- NOTE | 2019-08-26 11:02 | NUR ---
MD VISIT at bedside.
--- NOTE | 2019-08-26 11:39 | NUR ---
Nutrition Follow-up Notes Wt.: 56.5 kg Pt intubated sedated with no family by bedside. per RN no new diet order. pt continues to be NPO Est energy needs 0078-4039 kcal (27-30 kcal/kg BW 62kg) Est protein needs 50-62g (0.8-1g/kg) Labs: CA 5.6 L, DAMON 3.4 H, ALB 1.4 L. GI: Pt had 1 BM 6/3 per RN doc. Skin: Paresh scale 11, high risk. Please refer to wound assessment report for full details PES: 1) Inadequate PO intake r.t current medical condition aeb pt`s intubated Recommendations: 1) If EN support indicated consider Jevity at 60 mL/hr per MD approval. 2) If pt NPO >48 hours consider alternate nutrition 2) When medically feasible advance diet to oral. 4) f/u 2-3 days
[2019-08-26] MEDS ORDERED: CALCIUM GLUC 4.65meq/50ml D5AE 50 ML IV ONE ×2 (12:30→14:30)
--- NOTE | 2019-08-26 12:30 | NUR ---
MD VISIT rounding on patient. MD reviewing labs and IV medication. Orders received.
[2019-08-26] MEDS: POTASSIUM EFFERVESENT TAB 25 MEQ NG SCH ×2 (13:22→14:00)
--- NOTE | 2019-08-26 13:50 | NUR ---
URINE/BLOOD Urine and blood culture sent to lab.
--- NOTE | 2019-08-26 15:00 | NUR ---
COOLING MEASURES Patient temperature increasing to 100 rectally. New ice packs and cool compress applied. Will continue to monitor.
--- NOTE | 2019-08-26 15:49 | NUR ---
CARES Patient temperature has increased to 100.4, partial linen change complete. Skin reassessment performed. Cooling blanket placed under patient and cooling therapy in place. Patient tolerated activity fair, opening eyes slightly but not tracking or moving extremities. Bed locked in lowest position, alarms in place. Will continue to monitor.
--- NOTE | 2019-08-26 17:12 | NUR ---
SEDATION Sedation increased due to patients respiratory rate running 27-29, stacking breaths, and ventilator alarming multiple times for low inspiratory pressure. Patient not awake or opening eyes. Will continue to monitor.
[2019-08-26 18:41] LABS: Magnesium 2.4 mg/dL (1.6-2.6)
[2019-08-26 18:44] LABS: Potassium 5.6 mmol/L (3.5-5.1)
--- NOTE | 2019-08-26 18:44 | NUR ---
CRITICAL VALUE Potassium reported back 5.6, second dose of PO potassium. paged regarding results. Awaiting call back.
--- NOTE | 2019-08-26 19:02 | NUR ---
RETURNED PAGE aware of critical potassium level. No new orders received. would like to monitor.
--- NOTE | 2019-08-26 20:00 | NUR ---
OPENING NOTE REPORT RECEIVED FROM RASTA VICENTE. RECEIVED INTUBATED PATIENT. PATIENT ON SEDATION: VERSED 9ML/HR AND FENTANYL 200MCG/HR. PATIENT IN SINUS RHYTHM ON THE MONITOR. LEFT RADIAL ARTERIAL LINE IN PLACE. RIGHT CHEST TUBE NOTED. SANGUINEOUS DRAINAGE NOTED TO DRESSING. ATRIUM TO 30CM SUCTION. OG TUBE CLAMPED. LUBIN DRAINING CLEAR YELLOW URINE. GENERALIZED BRUISING TO BILATERAL ARMS/ LEFT POSTERIOR HIP/FLANK AREA. RIGHT TRIPLE LUMEN IJ IN PLACE-SEE IV FLOW SHEET FOR DETAILS. OPTIFOAM TO SACRUM PREVENTATIVE. PATIENT TO BE TURNED Q2H THROUGHOUT SHIFT.
[2019-08-26] MEDS: ATORVASTATIN 20 MG TAB PO SCH (21:42)
[2019-08-27] VITALS (107 sets, daily range): BP systolic 85–167; BP diastolic 43–84
[2019-08-27] MEDS: PIPERACILLIN-TAZOB 3.375GM 100 ML IV SCH ×5 (00:16→23:36)
[2019-08-27] MEDS: IPRATROPIUM BROM 0.5 MG/2.5ML INH SOL NEB SCH ×6 (02:07→22:08)
[2019-08-27] MEDS: ALBUTEROL SULF 2.5 MG/0.5ML(0.5%) NEB SOLN NEB SCH ×6 (02:07→22:08)
[2019-08-27] MEDS: PHENYLEPHRINE IV 250 ML IV SCH ×3 (02:42→19:22)
--- NOTE | 2019-08-27 03:00 | NUR ---
Patient bathe/linen change Patient given complete bath. Skin integrity assessed for any changes. Linens changed. Patient repositioned for comfort.
--- NOTE | 2019-08-27 03:00 | NUR ---
CHEST TUBE DRESSING CHANGE DRESSING OVER CHEST TUBE SOILED WITH DRIED BLOOD. OLD DRESSING REMOVED. INSERTION SITE CLEANSED WITH CHLORHEXIDINE SWABS. PETROLEUM GAUZE PLACED TO INSERTION SITE. DRESSED WITH SURESITE. PT TOLERATED WELL.
[2019-08-27 04:23] LABS: Basophils # (auto) 0 10 ^3/uL (0-0.2); Basophils % (auto) 0.5 % (0.0-2.0); Eosinophils # (auto) 0.1 10 ^3/uL (0-0.8); Eosinophils % (auto) 0.8 % (0.0-7.0); Hemoglobin 10.6 g/dL (12.2-16.2); Lymphocytes # (auto) 0.6 10 ^3/uL (0.4-5.4); Lymphocytes % (auto) 6.3 % (10.0-50.0); Mean Corpuscular Hemoglobin 30.5 pg (28.0-32.0); Mean Corpuscular Hgb Conc. 34.1 g/dL (32.0-36.0); Mean Corpuscular Volume 89.3 fL (80.0-100.0); Monocytes # (auto) 0.9 10 ^3/uL (0-1.3); Monocytes % (auto) 8.4 % (0.0-12.0); Neutrophils # (auto) 8.5 10 ^3/uL (1.6-8.6); Nucleated Red Blood Cells % 0.1 %; Platelet Count (auto) 288 10^3/uL (140-450); Red Blood Cells 3.47 10^6/uL (4.0-5.20); Red Cell Distribution Width 13.5 % (11.8-14.3); White Blood Cell 10.1 10^3/uL (4.4-10.8)
[2019-08-27 04:43] LABS: Albumin 1.5 g/dL (3.4-5.0); Calcium 6.8 mg/dL (8.5-10.1); Potassium 3.8 mmol/L (3.5-5.1)
[2019-08-27 04:53] LABS: BUN/Creatinine Ratio 42.3; Bilirubin, Total 3.1 mg/dL (0.2-1.0)
[2019-08-27] MEDS: TICAGRELOR 90 MG TAB PO SCH ×2 (05:28→18:46)
[2019-08-27] MEDS: MIDAZOLAM DRIP 50 mg/50mL 50 ML IV SCH ×3 (05:32→20:20)
--- NOTE | 2019-08-27 07:20 | NUR ---
Opening Note Received pt lying in bed supine, eyes closed. Pt in intubated and sedated, see IV spreadsheet. Pt has temperature of 100.2, cooling measures initiated. Vital signs stable. Old chest tube insertion noted to the right upper and right lateral chest. Dressings are clean, dry and intact. Right anterior medial chest tube inserted. Area is clean, dry and connected to single atrium, wall suction. No air leaks or bubbling noted. Small amount of crepitus noted above the chest tube site. Respirations are even and unlabored. No s/s of distress noted at this time. Bed is locked at lowest position and side rails are up. Will continue to monitor. Signed: 08/27/19 at 1105 by ORLANDO FRANKS SN <Co-Signature Required> Co-Signed: 08/27/19 at 1105 by Bee Velázquez RN
--- NOTE | 2019-08-27 07:20 | NUR ---
CLOSING REPORT ENDORSED TO RASTA VICENTE TO ASSUME CARE OF PATIENT
--- NOTE | 2019-08-27 07:40 | NUR ---
MD UPDATE called for update on patient. MD aware of labs, sedation, and chest tube outputs. Awaiting CXR results.
[2019-08-27] MEDS ORDERED: POTASSIUM CHL 20 Meq TABLET PO ONE (08:15)
--- NOTE | 2019-08-27 08:15 | NUR ---
MD UPDATE called for update. MD aware of AM labs, IV medication, and urine output. Orders obtained from .
[2019-08-27] MEDS: NOREPINEPHRINE 8 MG/250ML KIT 250 ML IV SCH (08:27)
--- NOTE | 2019-08-27 08:56 | NUR ---
FAMILY Spoke with regarding status and plan of care. All questions and concerns addressed.
[2019-08-27] MEDS ORDERED: POTASSIUM PHOSPHATE 26.4 MEQ in SODIUM CHL 0.9% 100 ML IV ONE (09:15)
[2019-08-27] MEDS ORDERED: POTASSIUM EFFERVESENT TAB 25 MEQ PO ONE (10:00)
[2019-08-27] MEDS: ENALAPRIL MALEATE 2.5 MG TAB PO SCH (10:00)
[2019-08-27] MEDS: ASPirin 81 mg TAB PO SCH (10:02)
[2019-08-27] MEDS: FUROSEMIDE 20 MG/2 ML VIAL IV SCH (10:02)
[2019-08-27] MEDS: FAMOTIDINE (10MG/ML) 2ML VL IV SCH ×2 (10:02→21:35)
[2019-08-27] MEDS: ACETAMINOPHEN 650 mg PER 20 mL UD GT PRN ×2 (12:20→23:37)
--- NOTE | 2019-08-27 12:36 | NUR ---
TEMPERATURE Patient rectal temp 100.4 despite cooling measures, PRN Tylenol administered. Will continue to monitor and reassess.
--- NOTE | 2019-08-27 14:17 | NUR ---
MD VISIT Dr.Milani aronld at bedside.
--- NOTE | 2019-08-27 16:35 | NUR ---
WARMING MEASURES/CARES Patient temperate continues to decrease . Cooling blanket removed from under patient. Partial linen change complete, skin reassessment performed, skin remains intact. Warming light on and blankets applied. Will continue to monitor. All other vital signs remain normal at this time.
--- NOTE | 2019-08-27 18:35 | NUR ---
TF Tube feedings started at 10 cc/hr.
[2019-08-27] MEDS: Jevity 1.2 Cal/Fiber 1 Liter GT SCH (18:39)
--- NOTE | 2019-08-27 19:22 | NUR ---
REPORT Report given to Miranda MAGDALENO, care endorsed.
--- NOTE | 2019-08-27 20:00 | NUR ---
OPENING NOTE REPORT RECEIVED FROM RASTA VICENTE. RECEIVED INTUBATED PATIENT. RIGHT TRIPLE LUMEN IJ IN PLACE,PATIENT ON SEDATION: VERSED 8ML/HR AND FENTANYL 175MCG/HR-SEE IV SPREAD SHEET. PATIENT ALSO NOTED TO BE ON LEVOPHED 2MCG/MIN.PATIENT IN SINUS RHYTHM ON THE MONITOR. LEFT RADIAL ARTERIAL LINE IN PLACE. RIGHT CHEST TUBE NOTED. SEROSANGUINEOUS DRAINAGE NOTED IN TUBING.DRESSING TO CHEST TUBE C/D/I. ATRIUM TO 30CM SUCTION. OG TUBE IN PLACE RUNNING JEVITY AT 10ML/HR. OG TUBE PLACEMENT CHECKED VIA AUSCULTATION.RESIDUAL ALSO CHECKED AND NOTED TO BE APPROXIMATELY 5ML. LUBIN DRAINING CLEAR YELLOW URINE. GENERALIZED BRUISING TO BILATERAL ARMS/ LEFT POSTERIOR HIP/FLANK AREA. OPTIFOAM TO SACRUM PREVENTATIVE. DARK RED SLOW BLANCHING LINEAR ANDREY TO RIGHT OUTER ANKLE ABOVE SCD MACHINE. HEELS OFF LOADED AND SCD'S REPOSITIONED. ALSO NOTED DARK RED SLOW BLANCHING TO RIGHT EAR. PATIENT REPOSITIONED AT THIS TIME.PATIENT TO BE TURNED Q2H THROUGHOUT SHIFT.
[2019-08-27] MEDS: ATORVASTATIN 20 MG TAB PO SCH (21:35)
[2019-08-27] MEDS: fentaNYL Drip 2500mCg/250mlNS 250 ML IV SCH (22:33)
[2019-08-28] VITALS (105 sets, daily range): BP systolic 54–179; BP diastolic 34–97
[2019-08-28] MEDS: MIDAZOLAM DRIP 50 mg/50mL 50 ML IV SCH ×4 (01:59→21:00)
--- NOTE | 2019-08-28 02:30 | NUR ---
Patient bathe/linen change Patient given complete bath. Skin integrity assessed for any changes. Linens changed. Patient repositioned for comfort.
[2019-08-28] MEDS: IPRATROPIUM BROM 0.5 MG/2.5ML INH SOL NEB SCH ×6 (03:03→22:10)
[2019-08-28] MEDS: ALBUTEROL SULF 2.5 MG/0.5ML(0.5%) NEB SOLN NEB SCH ×6 (03:03→22:10)
[2019-08-28] MEDS: PHENYLEPHRINE IV 250 ML IV SCH ×3 (03:42→12:02)
[2019-08-28 05:44] LABS: Basophils # (auto) 0.1 10 ^3/uL (0-0.2); Basophils % (auto) 0.5 % (0.0-2.0); Eosinophils # (auto) 0.1 10 ^3/uL (0-0.8); Hematocrit 25.2 % (36.0-46.0); Hemoglobin 8.6 g/dL (12.2-16.2); Lymphocytes # (auto) 0.9 10 ^3/uL (0.4-5.4); Lymphocytes % (auto) 6.9 % (10.0-50.0); Mean Corpuscular Hemoglobin 30.3 pg (28.0-32.0); Mean Corpuscular Hgb Conc. 34.3 g/dL (32.0-36.0); Mean Corpuscular Volume 88.5 fL (80.0-100.0); Monocytes # (auto) 1.1 10 ^3/uL (0-1.3); Monocytes % (auto) 9.1 % (0.0-12.0); Neutrophils # (auto) 10.3 10 ^3/uL (1.6-8.6); Neutrophils % (auto) 82.5 % (37.0-80.0); Platelet Count (auto) 374 10^3/uL (140-450); Red Blood Cells 2.85 10^6/uL (4.0-5.20); Red Cell Distribution Width 13.4 % (11.8-14.3); White Blood Cell 12.5 10^3/uL (4.4-10.8)
[2019-08-28] MEDS: TICAGRELOR 90 MG TAB PO SCH ×2 (05:46→17:44)
[2019-08-28] MEDS: PIPERACILLIN-TAZOB 3.375GM 100 ML IV SCH ×3 (05:46→17:44)
[2019-08-28 06:03] LABS: Potassium 3.4 mmol/L (3.5-5.1)
[2019-08-28 06:10] LABS: BUN/Creatinine Ratio 37.5; Calcium 6.7 mg/dL (8.5-10.1)
--- NOTE | 2019-08-28 06:24 | NUR ---
Respiratory note: RECEIVED PATIENT ON V2 V200 VENT ORALLY INTUBATED WITH AN 8.0 ETT SECURED VIA ESEQUIEL AT THE 22CM MARKING AT THE LIP, AND MECHANICALLY VENTILATED WITH THE CHARTED SETTINGS. SPO2 95%, LUNG SOUNDS DIM T/O, NO SECRETIONS WHEN SUCTIONED. SKIN IS WARM/DRY TO THE TOUCH AND IS INTACT NEAR ESEQUIEL SITE. THERE IS AN OGT IN PLACE AND SECURED TO THE ETT, A TRIPLE LUMEN CENTRAL LINE IS PLACED IN THE RIGHT IJ, A RIGHT SIDE MID CLAVICULAR CHEST TUBE IS IN PLACE AND DRAINING, AND THERE IS A LEFT RADIAL A-LINE IN PLACE AND OPERATIONAL. NO EDEMA NOTED THROUGHOUT. NO NEW AM CXR TO ASSESS. PATIENT IS SEDATED ON FENTANYL AND VERSED DRIPS AND IS UNRESPONSIVE TO BOTH VERBAL AND TACTILE STIMULI. SHE IS RESTING COMFORTABLY AND TOLERATING VENT WELL, NO CHANGES MADE. WILL CONTINUE TO ASSESS PATIENT WELL VENTILATOR FUNCTION. elicit RUN INLINE.
--- NOTE | 2019-08-28 07:36 | NUR ---
REPORT REPORT RECEIVED FROM DIANELYS RNRUPESH. BEDSIDE CHECK DONE. PT INTUBATED AND SEDATED AND ON LOW DOSE LEVOPHED FOR BP SUPPORT. CONTINUE TO MONITOR.
--- NOTE | 2019-08-28 07:36 | NUR ---
CLOSING REPORT ENDORSED TO CY MAGDALENO.
--- NOTE | 2019-08-28 07:55 | NUR ---
ASSESSMENT PT RESTING IN BED WITH EYES CLOSED. NO SPONTANEOUS MOVEMENT NOTED BUT WITHDRAWS TO PAINFUL STIMULI. SEDATED ON VERSED AT 8 MG/HR AND FENTANYL AT 175 MCG/HR. PT INTUBATED WITH VENTILATOR SETTINGS OF: 8 FR ETT/22 AT THE LIP, TV 400, AC 16, 45% FIO2 AND PEEP OF 3. LUNGS WITH INSPIRATORY WHEEZES NOTED AND CLEAR AND DIMINISHED THROUGHOUT. TELE
--- NOTE | 2019-08-28 07:55 | NUR ---
PT TEACHING PT UNABLE TO BENEFIT FROM PT TEACHING AT THIS TIME SHE IS SEDATED AND INTUBATED. Addendum: 08/28/19 at 1812 by Mis Mendez RN Amended: Links added.
[2019-08-28] MEDS: ACETAMINOPHEN 650 mg PER 20 mL UD GT PRN ×2 (08:29→17:44)
[2019-08-28] MEDS: NOREPINEPHRINE 8 MG/250ML KIT 250 ML IV SCH (08:43)
[2019-08-28] MEDS: FUROSEMIDE 20 MG/2 ML VIAL IV SCH (09:54)
[2019-08-28] MEDS: FAMOTIDINE (10MG/ML) 2ML VL IV SCH ×2 (09:54→21:50)
[2019-08-28] MEDS: ASPirin 81 mg TAB PO SCH (09:54)
[2019-08-28] MEDS: ENALAPRIL MALEATE 2.5 MG TAB PO SCH (09:54)
[2019-08-28] MEDS: fentaNYL Drip 2500mCg/250mlNS 250 ML IV SCH (12:39)
--- NOTE | 2019-08-28 13:00 | NUR ---
MD VISIT/FAMILY DR HUDSON HERE AND UPDATED ON PT'S CURRENT CONDITION. LET HIM KNOW THAT DR RAMIREZ WAS INQUIRING IF DR HUDSON WILL BE DOING ANY PROCEDURE. HE SAID SHE WAS NOT STABLE FOR ANY PROCEDURE. I ALSO GOT THE PT'S ON THE PHONE AND DR HUDSON SPOKE WITH HIM.
--- NOTE | 2019-08-28 15:11 | NUR ---
Rectal temp of 100.8. Freshened ice packs.
--- NOTE | 2019-08-28 17:44 | NUR ---
TEMP OF 100.8 (R) AND ADMINISTERED TYLENOL PER MD ORDER. ICE PACKS FRESHENED.
--- NOTE | 2019-08-28 19:35 | NUR ---
REPORT REPORT GIVEN TO SAMUEL IVORY RN.
[2019-08-28] MEDS ORDERED: FUROSEMIDE 40 MG/4 ML VIAL IV ONE (19:45)
[2019-08-28] MEDS: Jevity 1.2 Cal/Fiber 1 Liter GT SCH (21:00)
--- NOTE | 2019-08-28 21:00 | NUR ---
ADMITTED ON 08/20/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 ON 08/25/2019 DR HUDSON TOOK THE PATIENT TO THE OR AND REMOVED PREVIOUS CHEST TUBES AND PLACED A RIGHT UPPER CHEST -CHEST TUBE. IT IS TO 20CM OF PLEURAVAC SUCTION. DRAINING RED LIQUID. NO CREPITUS AT SITE. DRAINED ONLY 15CC FOR 0. DR HUDSON NOW HAS DECIDED AGAINST DOING A DECORTICATION. DR RAMIREZ IS PLANNING ON POSSIBLE DOING A BRONCH TOMORROW. HAS A RIJTLC WITH ONE PORT FOR ANTIBIOTICS , ONE PORT FOR FENTANYL AND VERSED, ONE PORT FOR LEVOPHED. POTASSIUM LOW TODAY. NEW ORDER FOR 40 MEQ KCL RIDER. OGT WITH JEVITY AT 50CC/HR,THE GOAL IS 60CC/HR. OGT RESIDUAL 30CC. ETT TO VENTILATOR. SUCTIONED A SMALL AMOUNT OF CLOUDY SECRETIONS. ORALLY SUCTIONED A TINY AMOUNT OF CLEAR SECRETIONS. ORAL CARE DONE. LUNGS CLEAR. LUBIN IN PLACE DRAINING LT ADILSON LIQUID IN SMALL AMOUNTS. PATIENT IS A FULL CODE. RESPIRATORY CULTURE POSITIVE FOR KLEB. NSR WITH OCCASIONAL PVCS.
[2019-08-28] MEDS: ATORVASTATIN 20 MG TAB PO SCH (21:50)
[2019-08-28] MEDS: POTASSIUM CHL 20MEQ/100ML 100 ML IV SCH ×2 (21:51→23:19)
--- NOTE | 2019-08-28 22:00 | NUR ---
ORAL CARE. SUCTIONED THE ETT FOR A TINY AMOUNT OF CLOUDY SECRETIONS. NO CREPITUS SURROUNDING ANTERIOR CHEST TUBE. SMALL AMOUNT OF RED LIQUID IN CHEST TUBE TUBING. NO AIR LEAK. TOLERATING TUBE FEEDING. KCL REPLACEMENT GOING. NSR WITH OCCASIONAL PVCS.
[2019-08-29] VITALS (104 sets, daily range): BP systolic 66–170; BP diastolic 32–145
--- NOTE | 2019-08-29 | NUR ---
REPOSITIONED TO BACK. ORAL CARE DONE. SUCTIONED ETT FOR A MODERATE AMOUNT OF CREAMY SECRETIONS. NO CREPITUS SURROUNDING CHEST TUBE. TOTAL OF 25CC OF CHEST TUBE DRNG THIS SHIFT. ABDOMEN SOFT. LUBIN DRAINING ADILSON LIQUID. ALL PULSES PALPABLE. EXTREMITIES WARM. ARTERIAL LINE IN THE LEFT WRIST IS NOT CORRELATING WELL WITH THE BLOOD PRESSURE CUFF. ART LINE IS ALWAYS LOWER. NSR WITH OCCASIONAL PVCS. WAKES UP AND OPENS EYES BRIEFLY. NO MOVEMENT OF EXTREMITIES. LOW GRADE FEVER. ICE BAG TO BACK OF NECK.
[2019-08-29] MEDS: PIPERACILLIN-TAZOB 3.375GM 100 ML IV SCH ×4 (00:43→18:59)
[2019-08-29] MEDS: fentaNYL Drip 2500mCg/250mlNS 250 ML IV SCH ×2 (00:47→14:53)
--- NOTE | 2019-08-29 02:00 | NUR ---
MINIMAL CHEST TUBE OUTPUT. SUBQ EMPHYSEMA UNDER CHIN. CHEST TUBE OUTPUT IS RED. DECREASING LEVOPHED SUCCESSFULLY. TEMP IS STILL 100.9 OR 101 RECTALLY ( RECTAL PROBE).
[2019-08-29] MEDS: ALBUTEROL SULF 2.5 MG/0.5ML(0.5%) NEB SOLN NEB SCH ×6 (02:24→22:26)
[2019-08-29] MEDS: IPRATROPIUM BROM 0.5 MG/2.5ML INH SOL NEB SCH ×6 (02:24→22:26)
--- NOTE | 2019-08-29 03:00 | NUR ---
STOPPED TUBE FEED FOR POSSIBLE BRONCH TODAY
--- NOTE | 2019-08-29 03:15 | NUR ---
AM LABS DRAWN
--- NOTE | 2019-08-29 03:50 | NUR ---
CHG BATH. PARTIAL LINEN CHANGE. RECTAL TEMP PROBE REMOVED . TEMPERATURE DID NOT CORRELATE WITH THE ORAL TEMP OR AXILLARY TEMP.
[2019-08-29 04:29] LABS: Basophils # (auto) 0.1 10 ^3/uL (0-0.2); Basophils % (auto) 0.8 % (0.0-2.0); Eosinophils # (auto) 0.2 10 ^3/uL (0-0.8); Eosinophils % (auto) 1.6 % (0.0-7.0); Hematocrit 27.4 % (36.0-46.0); Hemoglobin 9.1 g/dL (12.2-16.2); Lymphocytes # (auto) 0.9 10 ^3/uL (0.4-5.4); Lymphocytes % (auto) 5.9 % (10.0-50.0); Mean Corpuscular Hemoglobin 29.5 pg (28.0-32.0); Mean Corpuscular Hgb Conc. 33.2 g/dL (32.0-36.0); Monocytes # (auto) 1.3 10 ^3/uL (0-1.3); Monocytes % (auto) 8.5 % (0.0-12.0); Neutrophils # (auto) 12.3 10 ^3/uL (1.6-8.6); Neutrophils % (auto) 83.2 % (37.0-80.0); Platelet Count (auto) 411 10^3/uL (140-450); Red Blood Cells 3.08 10^6/uL (4.0-5.20); Red Cell Distribution Width 13.6 % (11.8-14.3); White Blood Cell 14.8 10^3/uL (4.4-10.8)
[2019-08-29] MEDS: MIDAZOLAM DRIP 50 mg/50mL 50 ML IV SCH ×3 (04:37→19:00)
[2019-08-29] MEDS: PHENYLEPHRINE IV 250 ML IV SCH ×3 (04:42→21:22)
[2019-08-29 04:47] LABS: Calcium 8.2 mg/dL (8.5-10.1); Potassium 4.7 mmol/L (3.5-5.1)
[2019-08-29 04:49] LABS: BUN/Creatinine Ratio 33.3
[2019-08-29] MEDS: TICAGRELOR 90 MG TAB PO SCH ×2 (06:02→19:30)
--- NOTE | 2019-08-29 07:30 | NUR ---
REPORT REPORT RECEIVED FROM DIANELYS RNARSLAN. BEDSIDE CHECK DONE.
--- NOTE | 2019-08-29 07:37 | NUR ---
ASSESSMENT PT RESTING IN BED WITH EYES CLOSED. SEDATED ON VERSED AT 8 MG/HR AND FENTANYL AT 175 MCG/HR. NO SPONTANEOUS MOVEMENT NOTED. ON THE VENTILATOR WITH SETTINGS OF: 8 FR ETT/ 22 AT THE LIP, TV 400, AC 16, 45% AND PEEP OF 3. LUNGS CLEAR AND DIMINISHED THROUGHOUT. LAVAGED AND SUCTIONED VIA ETT FOR SMALL AMOUNT OF THICK CREAMY SECRETIONS. ORAL CARE PROVIDED. CHEST TUBE TO UPPER MIDLINE CHEST AND CONNECTED TO ATRIUM DRAINAGE WITH 30 CM OF SUCTION. DRAINING DARK RED COLORED FLUID. TELE ST [address] IN LEADS II AND AVF. PALPABLE PULSES TO ALL EXTREMITIES WITH NO EDEMA NOTED. SCS TO BLE. ABD SOFT WITH + BOWEL SOUNDS. OGT IN PLACE AND FEEDINGS ON HOLD FOR POSSIBLE BRONCHOSCOPY. LUBIN CATHETER DRAINING CLEAR YELLOW URINE. PT WITH BRUISING NOTED TO BOTH ARMS AND TO RIGHT UPPER CHEST/ARM. PT TURNED TO HER LEFT SIDE. PT WITH SACRAL OPTIFOAM IN PLACE, SKIN UNDER IS CLEAR. RAILS UP X4 AND BED IN LOW POSITION FOR PT SAFTY. CONTINUE TO MONITOR.
--- NOTE | 2019-08-29 08:00 | NUR ---
PT TEACHING PT UNABLE TO BENEFIT FROM PT TEACHING AT THIS TIME DUE TO BEING INTUBATED AND SEDATED. Addendum: 08/29/19 at 2007 by Mis Mendez RN Amended: Links added.
[2019-08-29] MEDS: NOREPINEPHRINE 8 MG/250ML KIT 250 ML IV SCH ×2 (08:27→13:03)
--- NOTE | 2019-08-29 08:35 | NUR ---
VENT: INCREASED FIO2 TO 60%
--- NOTE | 2019-08-29 08:40 | NUR ---
FAMILY PT'S CALLED. AFTER HE PROVIDED THE PASSWORD, I ANSWERED HIS QUESTIONS AND UPDATED HIM ON THE PT'S CONDITION AND POC FOR THE DAY.
--- NOTE | 2019-08-29 09:15 | NUR ---
PHONE/MD SPOKE WITH DR RAMIREZ, BY PHONE, AND VERIFIED NO BRONCHOSCOPY FOR TODAY. RESTARTED OGT FEEDINGS OF JEVITY 1.2 AT 50 ML/HR. CONTINUE TO MONITOR.
[2019-08-29] MEDS: ASPirin 81 mg TAB PO SCH (09:48)
[2019-08-29] MEDS: FAMOTIDINE (10MG/ML) 2ML VL IV SCH ×2 (09:48→22:20)
[2019-08-29] MEDS: ENALAPRIL MALEATE 2.5 MG TAB PO SCH (09:49)
[2019-08-29] MEDS ORDERED: FUROSEMIDE 20 MG/2 ML VIAL IV ONE (10:00)
[2019-08-29] MEDS: DOPamine 1600MCG/ML D5W 250 ML IV SCH (12:25)
[2019-08-29] MEDS: ALBUMIN 25% 100 ML IV SCH ×2 (12:54→22:21)
[2019-08-29] MEDS: ACETAMINOPHEN 650 mg PER 20 mL UD GT PRN (13:45)
--- NOTE | 2019-08-29 13:45 | NUR ---
ELEVATED HR/ BP AND TEMP PT'S HR UP TO 140'S AND RR 31 AND BP OF 185/79 . TURNED OFF DOPAMINE DRIP AND LEVOPHED DRIPS. CHECKED TEMP PT FEELS HOT. ORAL TEMP OF 103.3. DR RAMIREZ HER IN THE ICU AND MADE AWARE. ORDERED COOLING MEASURES AND COOLING BLANKET WELL REYES CULTURES. ADMINISTERED TYLENOL 650 LIQUID VIA OGT.
[2019-08-29] MEDS ORDERED: LIDOCAINE HCL 2% TOP JELLY 5ML TOP ONE (13:53)
--- NOTE | 2019-08-29 14:17 | NUR ---
RESTAL PROBE PLACED PLACING PT ON COOLING BLANKET. RECTAL TEMP OF 104.5.
--- NOTE | 2019-08-29 14:20 | NUR ---
Sputum sample obtained and sent to lab as ordered.
[2019-08-29] MEDS: BUMETANIDE INJECTION 12.5 MG in GIVE UN-DILUTED 0 ML IV SCH (14:27)
--- NOTE | 2019-08-29 14:27 | NUR ---
ARTERIAL BP NOW 90/60 AND NEED TO START BUMEX DRIP. RESTARTING DOPAMINE AT 2.5 MCG AND CONTINUE TO MONITOR BP AND HR.
--- NOTE | 2019-08-29 14:41 | NUR ---
LAB HERE FOR BLOOD CULTURES . SPUTUM AND URINE CULTURES HAVE ALSO BEEN OBTAINED.
--- NOTE | 2019-08-29 14:55 | NUR ---
SPOKE WITH DR RAMIREZ REGARDING POSSIBLE VISIT FOR PT'S DUE TO CHANGE IN HER CONDITION. HE SAYS IT WOULD BE GOOD FOR HER TO COME IN. CHECKED WITH OUR FINANCE MANAGER , CASTILLO, AND SHE GAVE HER OKAY FOR A SHORT VISIT FOR THE ONLY. Addendum: 08/29/19 at 1500 by Mis Mendez RN NOTIFIED DR RAMIREZ THAT A LINE AND BP CUFF ARE NOT CORRELATING WITH A LINE READINGS MUCH LOWER. HAVE ZEROED LINE WITH NO IMPROVEMENT. HE STATED TO GO BY THE CUFF PRESSURES BUT KEEP THE ARTERIAL LINE FOR BLOOD DRAWS.
--- NOTE | 2019-08-29 15:00 | NUR ---
TRYING TO CONTACT DR RAMON TO DISCUSS CHANGES IN THE PT'S CONDITION. CALLED AND LEFT A MESSAGE.
--- NOTE | 2019-08-29 15:02 | NUR ---
Nutrition Follow-up Notes Wt.: 56.5 kg Pt intubated sedated with no family by bedside. Pt NPO with Jevity running @ 50 ml/hr. This provides 1440 kcal and 67 g protein. This is adequate as it provides 77-86% of energy needs and >100% of protein needs. Est energy needs 4409-7295 kcal (27-30 kcal/kg BW 62kg) Est protein needs 50-62g (0.8-1g/kg) Labs: Creat 0.51L, Ca 8.2L, Alb 1.5L GI: Pt had 1 BM 6/3 per RN doc. Skin: Paresh scale 13, mod risk. Please refer to wound assessment report for full details PES: 1) Inadequate PO intake r.t current medical condition aeb pt`s intubated Recommendations: 1) If EN support indicated consider Jevity at 60 mL/hr per MD approval. 2) When medically feasible advance diet to oral. 3) f/u 2-3 days
[2019-08-29] MEDS ORDERED: VANCOMYCIN 1GM/250ML 250 ML IV ONE (15:15)
[2019-08-29] MEDS ORDERED: VANCOMYCIN PER PHARMACY 0 MG IV SCH (15:15)
--- NOTE | 2019-08-29 16:00 | NUR ---
PT'S TO THE BEDSIDE AND SPOKE WITH HIM REGARDING THE PT'S CONDITION AND POC.
--- NOTE | 2019-08-29 16:40 | NUR ---
DR RAMIREZ SPOKE WITH THE PT'S , SON , DAUGHTER AND SON IN LAW, AT THE BEDSIDE, REGARDING THE PT'S CONDITION.
[2019-08-29] MEDS: VANCOMYCIN 750mg/250ml 250 ML IV SCH (17:08)
--- NOTE | 2019-08-29 19:07 | NUR ---
BP OF 85/60 AND RESTAARTED LEVOPHED DRIP AT 2 MCG.
--- NOTE | 2019-08-29 19:15 | NUR ---
BP OF 84/49 AND INCREASED LEVOPHED TO 4 MCG PER PROTOCOL. CONTINUE TO MONITOR BP.
--- NOTE | 2019-08-29 19:28 | NUR ---
CONSENTS/CODE STATUS PT'S , KOBI ROWLAND, SIGNED CONSENTS FOR BRONCHOSCOPY AND CODE STATUS PAPERWORK FOR ACLS DRUGS AND INTUBATION, BUT NO CARDIOVERSION, DEFIBRILLATION OR CHEST COMPRESSIONS. NIGHT RN, ARSLAN, HERE AND AWARE.
--- NOTE | 2019-08-29 19:30 | NUR ---
REPORT REPORT GIVEN TO DIANELYS RNARSLAN. BEDSIDE CHECK DONE.
--- NOTE | 2019-08-29 19:40 | NUR ---
PAGING PT WITH 220ML BLOOD OUT FOR CHEST TUBE DRAINAGE THIS SHIFT. PAGED DR CHRISTIAN TO MAKE AWARE AND SEE IF HE STILL WANTS THE PT TO RECEIVE HER ORDERED DOSE OF BRILINTA. Addendum: 08/29/19 at 1953 by Mis Mendez RN PT'S RR ELEVATED WITH INCREASED WORK OF BREATHING. PER DR RAMIREZ. INCREASED FENTANYL TO 200 MCG/HR AND VERSED TO 10 MG/HR. CONTINUE TO MONITOR.
--- NOTE | 2019-08-29 20:00 | NUR ---
ADMITTED WITH A STEMI, CHEST PAIN. SPONTANEOUS PNEUMO, SHE NOW HAS A RIGHT UPPER CHEST CHEST TUBE TO 20CM OF DRY SUCTION. SMALL AMOUNT OF BLOOD DRNG. NO AIR LEAK . SMALL AMOUNT OF CREPITUS RIGHT ABOVE THE CHEST TUBE SITE. IT IS NOT EXTENDING. SPIKED A HIGH FEVER ON DAYSHIFT, WITH TACHYCARDIA AND HYPERTENSION. VANCOMYCIN ADDED TO THERAPY. ALBUMIN, BUMEX DRIP AND LOW DOSE DOPAMINE ADDED AN EFFORT TO INCREASE URINE OUTPUT. ON A FLUID RESTRICTION. ETT TO VENTILATOR. SMALL AMOUNT OF CREAMY SECRETIONS SUCTIONED FROM THE ETT. FIO2 WAS INCREASED TODAY. ORAL CARE DONE. REPOSITIONED TO BACK. ARTERIAL LINE IS NOT WORKING. ATTEMPT TO DRAW LABS, UNABLE TO GET THE SPECIMEN. IT RETURNED TO A WORSE WAVEFORM THAN BEFORE. RECTAL TEMPERATURE PROBE IN NOW AND IS READING A NORMAL TEMPERATURE. LUBIN IN PLACE WITH SUBOPTIMAL URINE OUTPUT. LEVOPHED TO SUPPORT THE BLOOD PRESSURE. VERSED AND FENTANYL FOR SEDATION. VERY HYPOACTIVE GAG. JEVITY RESTARTED WITH NEW BAG AND TUBING. COOLING BLANKET ON. PLAN FOR BRONCHOSCOPY TOMORROW.
[2019-08-29] MEDS: Jevity 1.2 Cal/Fiber 1 Liter GT SCH (21:00)
--- NOTE | 2019-08-29 21:30 | NUR ---
CHEM PANEL SENT.
--- NOTE | 2019-08-29 21:44 | NUR ---
FAMILY IS LEAVING NOW. LEFT IN ROOM.
--- NOTE | 2019-08-29 22:00 | NUR ---
LEFT. GRATEFUL FOR CALLING THE FAMILY IN. ARTERIAL LINE DISCONTINUED . NOT WORKING. PRESSURE HELD FOR 10 MINUTES AT WRIST. SUTURE REMOVED. 4X4 DRESSING APPLIED WITH FOAM TAPE. REPOSITIONED. ORAL CARE DONE. SUCTIONED THE ETT FOR CREAMY SECRETIONS. NGT RESIDUAL 10CC. MEDS GIVEN. JEVITY CONTINUES AT 60 ML/HR. HEART RATE, TEMP AND BLOOD PRESSURE ARE VERY STABLE RIGHT NOW. LUNGS CLEAR. SMALL AMOUNT OF BLOODY DRNG FROM THE CHEST TUBE SITE. ONLY 15CC FROM CHEST TUBE SO FAR. NO INCREASE IN CREPITUS. ABDOMEN REMAINS SOFT. PULSES PALPABLE. ALL EXTREMITIES WARM.
[2019-08-29] MEDS: ATORVASTATIN 20 MG TAB PO SCH (22:21)
[2019-08-29 22:31] LABS: Albumin 2.2 g/dL (3.4-5.0); Calcium 7.9 mg/dL (8.5-10.1); Potassium 3.8 mmol/L (3.5-5.1)
[2019-08-29 22:33] LABS: BUN/Creatinine Ratio 28.4
[2019-08-29 22:36] LABS: Bilirubin, Total 2.3 mg/dL (0.2-1.0)
[2019-08-30] VITALS (107 sets, daily range): BP systolic 83–145; BP diastolic 45–75
--- NOTE | 2019-08-30 | NUR ---
REPOSITIONED. ORAL CARE DONE. LUNGS: COARSE. SUCTIONED A SMALL AMOUNT OF CREAMY SECRETIONS. ABDOMEN SOFT. NO EDEMA. CHEST TUBE IS DRAINING SANGUINOUS FLUID. ST WITH OCCASIONAL PVCS. PIP GOOD. DECREASED THE FIO2 T 55%. O2 SATURATION 96%. RR USUALLY 15. JEVITY CONTINUING . OGT RESIDUAL 10CC. NO STOOLS. LUBIN OUTPUT SO FAR 1000CC. DRIP RATES ARE THE SAME. VSS
[2019-08-30] MEDS: PIPERACILLIN-TAZOB 3.375GM 100 ML IV SCH ×4 (00:12→17:42)
--- NOTE | 2019-08-30 02:00 | NUR ---
VSS. NSR WITH OCCASIONAL PVCS. OGT NO NEW CHANESEL
[2019-08-30] MEDS: IPRATROPIUM BROM 0.5 MG/2.5ML INH SOL NEB SCH ×6 (02:12→22:47)
[2019-08-30] MEDS: ALBUTEROL SULF 2.5 MG/0.5ML(0.5%) NEB SOLN NEB SCH ×6 (02:12→22:47)
--- NOTE | 2019-08-30 03:16 | NUR ---
[facility] SENT
--- NOTE | 2019-08-30 04:00 | NUR ---
TEMP GOING BACK UP. TYLENOL GIVEN. LUNGS CLEAR. ORAL CARE. REPOSITIONED TO BACK. CHEST TUBE DRAINING SANGUINOUS BLOOD. NO FURTHER INCREASE IN CREPITUS JUST ABOVE THE INSERTION SITE OF THE CHEST TUBE. NOTHING SUCTIONED FROM THE ETT. ABDOMEN SOFT. TUBE FEEDINGS OFF FOR THE CPAP TRIAL TODAY. ALL PULSES PALPABLE. SCDS ON. CHG BATH GIVEN
[2019-08-30] MEDS: ACETAMINOPHEN 650 mg PER 20 mL UD GT PRN ×3 (04:23→21:09)
[2019-08-30] MEDS: VANCOMYCIN 750mg/250ml 250 ML IV SCH ×2 (04:28→15:26)
[2019-08-30 04:35] LABS: INR 1.12 (0.9-1.15); Partial Thromboplastin Time 30.2 sec (23.64-32.05)
[2019-08-30 04:40] LABS: Albumin 2.7 g/dL (3.4-5.0); Calcium 8.2 mg/dL (8.5-10.1)
[2019-08-30 04:43] LABS: BUN/Creatinine Ratio 28.6; Bilirubin, Total 2.4 mg/dL (0.2-1.0); Total Protein 6.4 g/dL (6.4-8.2)
[2019-08-30 04:48] LABS: Basophils # (auto) 0.1 10 ^3/uL (0-0.2); Basophils % (auto) 0.4 % (0.0-2.0); Eosinophils # (auto) 0.2 10 ^3/uL (0-0.8); Eosinophils % (auto) 1.2 % (0.0-7.0); Hematocrit 20.6 % (36.0-46.0); Hemoglobin 7.2 g/dL (12.2-16.2); Lymphocytes # (auto) 1.4 10 ^3/uL (0.4-5.4); Lymphocytes % (auto) 6.9 % (10.0-50.0); Mean Corpuscular Hemoglobin 30.6 pg (28.0-32.0); Mean Corpuscular Hgb Conc. 34.9 g/dL (32.0-36.0); Mean Corpuscular Volume 87.5 fL (80.0-100.0); Monocytes # (auto) 1.7 10 ^3/uL (0-1.3); Monocytes % (auto) 8.9 % (0.0-12.0); Neutrophils # (auto) 16.1 10 ^3/uL (1.6-8.6); Neutrophils % (auto) 82.6 % (37.0-80.0); Platelet Count (auto) 444 10^3/uL (140-450); Red Blood Cells 2.35 10^6/uL (4.0-5.20); Red Cell Distribution Width 13.6 % (11.8-14.3); White Blood Cell 19.5 10^3/uL (4.4-10.8)
[2019-08-30] MEDS: PHENYLEPHRINE IV 250 ML IV SCH ×3 (05:42→22:22)
--- NOTE | 2019-08-30 06:00 | NUR ---
BATH. LINEN CHANGE. DORA. RESPONDED WELL TO TYLENOL
[2019-08-30] MEDS: TICAGRELOR 90 MG TAB PO SCH ×2 (06:16→18:00)
--- NOTE | 2019-08-30 08:00 | NUR ---
CALL OUT TO DR. CORRALES FOR POTASSIUM OF 3.0. AWAITING CALL BACK.
[2019-08-30] MEDS: POTASSIUM CHL 20MEQ/100ML 100 ML IV SCH ×3 (09:35→11:58)
[2019-08-30] MEDS: ALBUMIN 25% 100 ML IV SCH ×2 (10:27→22:26)
[2019-08-30] MEDS: FAMOTIDINE (10MG/ML) 2ML VL IV SCH ×2 (10:27→22:25)
[2019-08-30] MEDS: ASPirin 81 mg TAB PO SCH (10:28)
[2019-08-30] MEDS: BUMETANIDE INJECTION 12.5 MG in GIVE UN-DILUTED 0 ML IV SCH (10:28)
[2019-08-30] MEDS: DOPamine 1600MCG/ML D5W 250 ML IV SCH (11:45)
--- NOTE | 2019-08-30 12:34 | NUR ---
SPOKE TO KOBI. UPDATED ON PATIENTS CURRENT CONDITION. ALL QUESTIONS ANSWERED AT THIS TIME.
[2019-08-30] MEDS: MIDAZOLAM DRIP 50 mg/50mL 50 ML IV SCH ×3 (12:45→20:00)
--- NOTE | 2019-08-30 13:20 | NUR ---
WOUND CARE NOTE: Wound care in to see patient for skin integrity monitoring. Patient continue resting in ICU bed in Rm. 107. She's intubated, sedated and mechanically ventilated. Patient appears to be in no pain using Ordonez Frye Faces Pain Scale. Her Paresh score is 15. Skin assessment done with the assistance of patient's nurse, RASTA Huerta. No wound noted other than chest tube site to upper anterior chest with C/D/I occlusive dressing. No pressure injury noted. Patient tolerated well, reposition for comfort facing her Rt. side, redistributed pressure points with pillows. RASTA Huerta at bedside. RECOMMENDATION: Continuation of all wound care orders prescribed by MD, continue with skin skin/wound preventative plan of care, continue monitoring by wound care while patient is mechanically ventilated.
[2019-08-30] MEDS ORDERED: LIDOCAINE HCL 2% TOP JELLY 5ML TOP ONE (14:31)
[2019-08-30] MEDS ORDERED: LIDOCAINE 2%HCL (LOCAL ANESTH.) INJ 20ML MDV ONE (14:31)
[2019-08-30] MEDS ORDERED: EPINEPHrine HCL 1 MG/1 ML AMP ONE (14:31)
[2019-08-30] MEDS ORDERED: SODIUM CHLORIDE LOCK 0 ML ONE (14:31)
[2019-08-30] MEDS ORDERED: GLYCOPYRROLATE 0.2 MG/ML 1ML VIAL ONE (14:41)
[2019-08-30] MEDS ORDERED: ACETYLCYSTEINE 10 %(100MG/ML) SOL 4ML NEB ONE (14:45)
[2019-08-30] MEDS: fentaNYL Drip 2500mCg/250mlNS 250 ML IV SCH (15:51)
--- NOTE | 2019-08-30 19:55 | NUR ---
DR RAMIREZ JUST COMPLETED A BRONCHOSCOPY. O2 SAT 92%. SBP 90S. LEVOPHED RECENTLY INCREASED TO 6 MCG/MIN.
[2019-08-30] MEDS: Jevity 1.2 Cal/Fiber 1 Liter GT SCH ×2 (20:00→21:00)
[2019-08-30] MEDS: NOREPINEPHRINE 8 MG/250ML KIT 250 ML IV SCH (20:00)
--- NOTE | 2019-08-30 20:00 | NUR ---
ORAL CARE. LARGE AMOUNT OF CLOUDY ORAL SECRETIONS. PUPILS ARE 2 AND SLUGGISH. ETT TO VENTILATOR. NO NEW VENTILATOR CHANGES. SUCTIONED ETT FOR A LARGE AMOUNT OF CLOUDY SECRETIONS. LUNGS CLEAR. ABDOMEN SOFT. PATIENT WAS REHOOKED TO [facility] A 60CC. NO NGT RESIDUAL. COOLING BLANKET ON. TYLENOL GIVEN IN HOPES THAWE CAN TAKE THE BLANKET OFF.NSR WITHOUT ECTOPY
--- NOTE | 2019-08-30 22:00 | NUR ---
CHEST TUBE DRESSING CHANGE. ATRIUM CHANGED. COOLING BLANKET OFF. TEMP 99.3 R. NSR WITHOUT ECTOPY. SBP STABLE. REPOSITIONED. ORAL CARE. NEW TUBE FEEDING BAG AND TUBING. OLD DRESSING REMOVED FROM RIGHT WRIST AND LEFT WRIST. ICE BAGS TO AXILLA.
[2019-08-30] MEDS: ATORVASTATIN 20 MG TAB PO SCH (22:25)
[2019-08-31] VITALS (100 sets, daily range): BP systolic 85–137; BP diastolic 44–73
--- NOTE | 2019-08-31 | NUR ---
REPOSITIONED. TEMP IS NORMAL . CHEST TUBE DRAINING RED LIQUID TO ATRIUM. CREPITUS JUST ABOVE THE CHEST TUBE SITE.ORAL CARE DONE.
[2019-08-31] MEDS: MIDAZOLAM DRIP 50 mg/50mL 50 ML IV SCH ×2 (00:30→20:00)
[2019-08-31] MEDS: PIPERACILLIN-TAZOB 3.375GM 100 ML IV SCH ×4 (00:30→17:45)
[2019-08-31] MEDS: DOPamine 1600MCG/ML D5W 250 ML IV SCH (00:31)
--- NOTE | 2019-08-31 02:00 | NUR ---
IN A GOOD PLACE WITH HER HEART RATE, BLOOD PRESSURE AND TEMPERATURE. NOT ON COOLING MEASURES. OVERBREATHING VENTILATOR BY 1-3 BREATHS. CHEST TUBE DRAINING RED LIQUID. GOOD URINE OUTPUT.
[2019-08-31] MEDS: IPRATROPIUM BROM 0.5 MG/2.5ML INH SOL NEB SCH ×6 (03:03→22:43)
[2019-08-31] MEDS: ALBUTEROL SULF 2.5 MG/0.5ML(0.5%) NEB SOLN NEB SCH ×6 (03:03→22:43)
[2019-08-31] MEDS: VANCOMYCIN 750mg/250ml 250 ML IV SCH ×2 (03:29→18:34)
[2019-08-31 04:41] LABS: Basophils # (auto) 0.1 10 ^3/uL (0-0.2); Eosinophils # (auto) 0.5 10 ^3/uL (0-0.8)
[2019-08-31 04:43] LABS: Basophils % (auto) 0.4 % (0.0-2.0); Eosinophils % (auto) 2.7 % (0.0-7.0); Lymphocytes # (auto) 1.6 10 ^3/uL (0.4-5.4); Lymphocytes % (auto) 8.4 % (10.0-50.0); Mean Corpuscular Hemoglobin 29.4 pg (28.0-32.0); Mean Corpuscular Hgb Conc. 33.6 g/dL (32.0-36.0); Mean Corpuscular Volume 87.6 fL (80.0-100.0); Monocytes # (auto) 1.5 10 ^3/uL (0-1.3); Monocytes % (auto) 7.9 % (0.0-12.0); Neutrophils % (auto) 80.6 % (37.0-80.0); Platelet Count (auto) 507 10^3/uL (140-450); Red Blood Cells 2.16 10^6/uL (4.0-5.20); Red Cell Distribution Width 13.2 % (11.8-14.3); White Blood Cell 18.6 10^3/uL (4.4-10.8)
[2019-08-31 04:50] LABS: Hemoglobin 6.4 g/dL (12.2-16.2)
[2019-08-31 05:50] LABS: Calcium 8.5 mg/dL (8.5-10.1)
[2019-08-31 05:54] LABS: BUN/Creatinine Ratio 25.4
[2019-08-31] MEDS: TICAGRELOR 90 MG TAB PO SCH ×2 (06:00→17:45)
--- NOTE | 2019-08-31 06:00 | NUR ---
120CC OGT RESIDUAL. NGT FEEDING STOPPED AT 0630. POTASSIUM LOW 2.6. POTASSIUM REPLACEMENT STARTED. CALLED PHARMACY FOR THE NEXT BUMEX DRIP. TOTAL OF 300CC FROM THE CHEST TUBE OVER 12 HOURS. THE HG THIS MORNING IS 6.4
[2019-08-31 06:03] LABS: Potassium 2.6 mmol/L (3.5-5.1)
[2019-08-31] MEDS: PHENYLEPHRINE IV 250 ML IV SCH ×2 (06:42→15:02)
[2019-08-31] MEDS: POTASSIUM CHL 20MEQ/100ML 100 ML IV SCH ×6 (06:43→18:02)
--- NOTE | 2019-08-31 07:30 | NUR ---
DR CHRISTIAN AT BEDSIDE DISCUSSED PATIENTS STATUS
--- NOTE | 2019-08-31 07:39 | NUR ---
CALL TO DR RAMON REPORTING THE HG AND POTASSIUM.
[2019-08-31] MEDS: ACETAMINOPHEN 650 mg PER 20 mL UD GT PRN (07:59)
--- NOTE | 2019-08-31 07:59 | NUR ---
TYLENOL GIVEN. ICE BAGS TO AXILLA
--- NOTE | 2019-08-31 08:05 | NUR ---
SPOKE WITH DR RAMIREZ DISCUSSED STATUS AND LABS, NEW ORDERS
--- NOTE | 2019-08-31 08:10 | NUR ---
SPOKE WITH DR RAMON UPDATED ON STATUS AND RECEIVED NEW ORDERS
[2019-08-31] MEDS: BUMETANIDE INJECTION 12.5 MG in GIVE UN-DILUTED 0 ML IV SCH (08:15)
--- NOTE | 2019-08-31 09:10 | NUR ---
PATIENTS CALLED PROVIDED PASSWORD, UPDATE DON STATUS AND PLAN OF CARE. ADDRESSED CONCERNS
--- NOTE | 2019-08-31 09:38 | NUR ---
DR WAY AT BEDSIDE DISCUSSED PATIENTS STATUS AND PLAN OF CARE. NEW ORDERS RECEIVED
[2019-08-31] MEDS: ASPirin 81 mg TAB PO SCH (10:00)
[2019-08-31] MEDS: FAMOTIDINE (10MG/ML) 2ML VL IV SCH ×2 (10:10→22:36)
--- NOTE | 2019-08-31 11:37 | NUR ---
Nutrition Follow-up Notes Wt.: 59.4 kg Pt intubated sedated with no family by bedside. Pt NPO with EN support on hold as per RN pt was ot tolerating it last night and also her vitals were not stable. pt was on EN support with Jevity running @ 50 ml/hr. Est energy needs 2856-8222 kcal (27-30 kcal/kg BW 62kg) Est protein needs 50-62g (0.8-1g/kg) Labs: GLU 178 H, ALB 2.7 L. GI: Pt had 1 BM 6/3 per RN doc. Skin: Paresh scale 13, mod risk. Please refer to wound assessment report for full details PES: 1) Inadequate PO intake r.t current medical condition aeb pt`s intubated Recommendations: 1) Resume EN support with Jevity at 60 mL/hr per MD approval. 2) When medically feasible advance diet to oral. 3) f/u 2-3 days
--- NOTE | 2019-08-31 13:00 | NUR ---
TEMPERATURES PATIENTS TEMPERATURE CONTINUE TO INCREASE, COOLING BLANKET APPLIED UNDERNEATH PATIENT AND ICE PACKS BILATERALLY. WILL CONTINUE TO MONITOR CLOSELY
--- NOTE | 2019-08-31 15:30 | NUR ---
DR RAMON AT BEDSIDE DISCUSSED STATUS. NO NEW ORDERS AT THIS TIME
--- NOTE | 2019-08-31 16:14 | NUR ---
Respiratory note: TITRATED FIO2 TO 40%
--- NOTE | 2019-08-31 18:00 | NUR ---
VERIFIED BRILINTA WITH DR GINO CHRISTIAN CONFIRMED TO ADMINISTER BRILINTA EVEN THROUGH PATIENT HAD LOW HGB TODAY
--- NOTE | 2019-08-31 19:50 | NUR ---
DR RAMIREZ. INFORMED OF INCREASE IN RR. STATED THAT WE CAN GO UP ON THE FENTANYL TO 300, BUT NOT TO INCREASE THE VERSED.
[2019-08-31] MEDS: fentaNYL Drip 2500mCg/250mlNS 250 ML IV SCH (20:00)
--- NOTE | 2019-08-31 20:00 | NUR ---
ADMITTED WITH A LATERAL STEMI. WENT TO [facility] ON 08/20/19 AND RECEIVED [address] CHRISTIAN. CAME BACK AND DEVELOPED A SPONTANEOUS PNEUMO. INITIALLY HAD 2 PLEUREX TUBES THAT HELPED REDUCE HER 80% PNEUMO. ON 08/[address] HUDSON TOOK HER TO OR AND REMOVED THE 2 PLEUREX TUBES AND PLACED A CENTRAL LARGER BORE CHEST TUBE AND HOOKED IT TO AN ATRIUM 20CM OF DRY SUCTION. DRAINING RED LIQUID. NO AIR LEAK. A SMALL AMOUNT OF CREPITUS LIES JUST ABOVE THE CHEST TUBE. CHEST TUBE SITE COVERED WITH A VASELINE GAUZE AT THE INSERTION SITE AND A CLEAR DRESSING TO COVER AND SECURE. THE CHEST TUBE. ABDOMEN SOFT. OGT CLAMPED. JEVITY RESTARTED AT 30CC/HR. RESIDUAL WAS 5 CC OF CREAMY FLUID. ALL PULSES PALPABLE. HAS HAD TROUBLE FOR SEVERAL DAYS WITH FEVERS. VANCOMYCIN AND ZOSYN ARE THE ANTIBIOTICS. TYLENOL RESPONSIVE. CURRENTLY ON THE COOLING BLANKET. NO FEVER. ALBUMIN AND BUMEX DRIP REMOVED TODAY FROM THERAPY. DOPAMINE AT RENAL DOSE CONTINUES. NO SEDIMENT IN LUBIN URINE. HAS SEVERAL ECCHYMOTIC AREAS ON CHEST . OLD PLEUREX SITES COVERED WITH VASELINE GAUZE AND A CLEAR DRESSING. NSR SINUS TACHYCARDIA RATE 98 TO 105. ORAL CARE. SUCTIONED ETT FOR NO SECRETIONS.
[2019-08-31 21:55] LABS: Hemoglobin 8.6 g/dL (12.2-16.2)
[2019-08-31 21:56] LABS: Hematocrit 25.6 % (36.0-46.0)
--- NOTE | 2019-08-31 22:00 | NUR ---
REPOSITIONED TO BACK. LOW CHEST TUBE OUTPUT. AMOUNT OF CREPITUS IS STABLE. DANIEL. ORAL CARE DONE. REPEAT HG AND POTASSIUM ARE REASONABLE. NOT TIME FOR THE DAILY BAG OF POTASSIUM. TOTAL OF 120 MEQ OF POTASSIUM REPLACED TODAY.GOOD URINE OUTPUT.
[2019-08-31] MEDS: ATORVASTATIN 20 MG TAB PO SCH (22:36)
[2019-09-01] VITALS (104 sets, daily range): BP systolic 76–131; BP diastolic 43–76
--- NOTE | 2019-09-01 | NUR ---
COOLING BLANKET ON. TEMPERATURE NORMAL. NSR WITHOUT ECTOPY. THE RR I WAS CONCERNED WITH EARLIER HAS SUBSIDED. THE RR NOW IS 20. ORAL CARE. REPOSITIONED TO RIGHT. MODERATE CHEST TUBE OUTPUT.
[2019-09-01] MEDS: MIDAZOLAM DRIP 50 mg/50mL 50 ML IV SCH ×4 (02:00→20:00)
[2019-09-01] MEDS: ALBUTEROL SULF 2.5 MG/0.5ML(0.5%) NEB SOLN NEB SCH ×6 (02:29→22:24)
[2019-09-01] MEDS: IPRATROPIUM BROM 0.5 MG/2.5ML INH SOL NEB SCH ×6 (02:29→22:24)
--- NOTE | 2019-09-01 03:00 | NUR ---
AM LABS DRAWN
--- NOTE | 2019-09-01 04:00 | NUR ---
TEMP RISING. TYLENOL GIVEN
--- NOTE | 2019-09-01 04:13 | NUR ---
COOLING BLANKET ON
[2019-09-01 04:22] LABS: Basophils # (auto) 0 10 ^3/uL (0-0.2); Basophils % (auto) 0.2 % (0.0-2.0); Eosinophils # (auto) 0.1 10 ^3/uL (0-0.8); Red Blood Cells 2.84 10^6/uL (4.0-5.20)
[2019-09-01 04:24] LABS: Eosinophils % (auto) 0.6 % (0.0-7.0); Hematocrit 24.8 % (36.0-46.0); Hemoglobin 8.4 g/dL (12.2-16.2); Lymphocytes % (auto) 4.7 % (10.0-50.0); Mean Corpuscular Hemoglobin 29.7 pg (28.0-32.0); Mean Corpuscular Volume 87.4 fL (80.0-100.0); Monocytes # (auto) 1.4 10 ^3/uL (0-1.3); Monocytes % (auto) 6.6 % (0.0-12.0); Neutrophils # (auto) 19.2 10 ^3/uL (1.6-8.6); Neutrophils % (auto) 87.9 % (37.0-80.0); Platelet Count (auto) 577 10^3/uL (140-450); Red Cell Distribution Width 13.6 % (11.8-14.3); White Blood Cell 21.8 10^3/uL (4.4-10.8)
[2019-09-01] MEDS: ACETAMINOPHEN 650 mg PER 20 mL UD GT PRN ×2 (04:35→15:41)
[2019-09-01 04:38] LABS: BUN/Creatinine Ratio 31.8; Calcium 8.9 mg/dL (8.5-10.1); Potassium 3.5 mmol/L (3.5-5.1)
--- NOTE | 2019-09-01 06:00 | NUR ---
vancomycin level normal. Vancomycin given
--- NOTE | 2019-09-01 06:12 | NUR ---
VENT: TITRATED FIO2 35%
[2019-09-01] MEDS: PIPERACILLIN-TAZOB 3.375GM 100 ML IV SCH ×2 (06:26)
[2019-09-01] MEDS: TICAGRELOR 90 MG TAB PO SCH ×2 (06:26→18:49)
[2019-09-01] MEDS: VANCOMYCIN 750mg/250ml 250 ML IV SCH (06:26)
[2019-09-01] MEDS: POTASSIUM CHL 20MEQ/100ML 100 ML IV SCH (06:40)
--- NOTE | 2019-09-01 06:43 | NUR ---
daily potassium started.
--- NOTE | 2019-09-01 07:30 | NUR ---
REPORT RECEIVED FROM POLICE JUDGE NURSE. PATIENT RESTING IN BED INTUBATED AND SEDATED. RESPIRATIONS EVEN AND UNLABORED. CHEST TUBE NOTED TO MEDIAL UPPER CHEST WITH NO NOTED REDNESS OR CREPITUS TO SITE, CONNECTED TO ATRIUM TO WALL SUCTION, WITH NO AIR LEAK NOTED DRAINING BLOODY DRAINAGE. BED IN LOW POSITION. WILL CONTINUE TO MONITOR.
[2019-09-01] MEDS: PHENYLEPHRINE IV 250 ML IV SCH ×2 (07:42→16:02)
--- NOTE | 2019-09-01 08:30 | NUR ---
REDIDUALS PATIENT NOTED TO HAVE HIGH RESIDUALS OF 150ML FROM OGT. STOPPED TUBE FEEDINGS AT THI TIME. WILL REASSESS.
--- NOTE | 2019-09-01 08:40 | NUR ---
UPDATED ON CURRENT PATIENT STATUS. ALL QUESTIONS AND CONCERNS ADDRESSED AT THIS TIME.
--- NOTE | 2019-09-01 08:51 | NUR ---
DR DIAZ AT BEDSIDE TO ASSESS PATIENT AND DISCUSS PLAN OF CARE. MD AWARE OF LAB VALUES AND POTASSIUM REPLACEMENT. NO NEW ORDERS AT THIS TIME.
[2019-09-01] MEDS: NOREPINEPHRINE 8 MG/250ML KIT 250 ML IV SCH (09:53)
[2019-09-01] MEDS: ASPirin 81 mg TAB PO SCH (10:03)
[2019-09-01] MEDS: FAMOTIDINE (10MG/ML) 2ML VL IV SCH ×2 (10:04→22:38)
[2019-09-01] MEDS: POTASSIUM EFFERVESENT TAB 25 MEQ GT SCH (10:04)
[2019-09-01] MEDS: DOPamine 1600MCG/ML D5W 250 ML IV SCH (11:45)
--- NOTE | 2019-09-01 12:00 | NUR ---
WOUND CARE NOTE: IN TO SEE PATIENT AT THIS TIME PER NURSE REQUEST. PATIENT NOTED TO HAVE AN EARLY DTI TO THE MEDIAL SACRUM UPON NURSE ASSESSMENT. PATIENT TURNED TO LEFT SIDE. SHE IS NOTED TO HAVE A LIGHT PURPLE INTACT DTI, MEASURING 2 X 2 CM. PERIWOUND IS PINK. NO BLISTERING NOTED, NO WEEPING OR DRAINAGE NOTED. WOUND PHOTOGRAPH TAKEN AT THIS TIME BY BEDSIDE NURSE FOR REFERENCE. RECOMMEND: SPECIALTY AIR MATTRESS, SIDE TO SIDE POSITIONING, AVOIDING SUPINE, CONTINUATION WITH ALL OTHER WOUND CARE ORDERS PREVIOUSLY PRESCRIBED BY MD. WOUND CARE TEAM WILL CONTINUE TO MONITOR. Addendum: 09/01/19 at 1632 by Yolande Clay RN Amended: Links added.
--- NOTE | 2019-09-01 12:15 | NUR ---
DR RAMIREZ AT BEDSIDE TO ASSESS PATIENT AND DISCUSS PLAN OF CARE. PER MD OBTAIN CHEST CT. ALL ORDERS NOTED IN CHART.
--- NOTE | 2019-09-01 12:30 | NUR ---
WOUND CARE AT BEDSIDE AND INFORMED OF PATIENTS DTI NOTED TO SACRUM. PHOTOS TAKEN
--- NOTE | 2019-09-01 12:30 | NUR ---
WOUND CARE NOTE: SPECIALTY AIR BED ORDERED AT THIS TIME. PATIENT TO BE PLACED, PENDING DELIVERY BY ADRIAN NEUMANN
--- NOTE | 2019-09-01 12:53 | NUR ---
DR RAMON AT BEDSIDE TO ASSESS PATIENT AND DISCUSS PLAN OF CARE. MD SPOKE TO OVER THE PHONE ABOUT PATIENT STATUS AND PLAN OF CARE AND NEED FOR TRANSFER TO HIGHER LEVEL OF CARE.
[2019-09-01] MEDS: METOCLOPRAMIDE HCL 5MG/ml INJ 2ml VIAL IV SCH ×2 (13:38→22:38)
[2019-09-01] MEDS: MEROPENEM 1GM IVPB 100 ML IV SCH ×2 (13:39→22:39)
[2019-09-01] MEDS: fentaNYL Drip 2500mCg/250mlNS 250 ML IV SCH (14:16)
--- NOTE | 2019-09-01 14:25 | NUR ---
PATIENT TAKEN TO RADIOLOGY FOR CT SCAN OF CHEST, CONNECTED TO PORTABLE MONITOR AND VENTILATOR. NO SIGNS OF ACUTE DISTRESS NOTED. RADIOLOGY NURSE AT BEDSIDE FOR TRANSPORT.
--- NOTE | 2019-09-01 14:45 | NUR ---
RT Transport Note: Patient transported to RADIOLOGY with RASTA Mckinney. Patient transported on cardiac cath lab technologist and transport vent connected to O2 tank with alarms set and audible. Patient returned to room with no adverse reaction noted, placed back on vent on previous settings. Transport completed without incident.
--- NOTE | 2019-09-01 15:38 | NUR ---
PT DESATTING TO 88%, INCREASED FIO2 TO 50%, SPO2 NOW 94%. NOTIFIED RN OF CHANGES
--- NOTE | 2019-09-01 15:51 | NUR ---
PAGED DR HUDSON PER DR RAMIREZ REQUEST TO INFORM OF PATIENTS CHEST CT RESULTS. AWAITING CALL BACK.
--- NOTE | 2019-09-01 15:56 | NUR ---
SPOKE TO DR HUDSON AND REVIEWED CHEST CT IMPRESSION. PER MD PATIENT IS NOT A CANDIDATE FOR ANY SX INTERVENTION AT THIS TIME,WILL INFORM DR RAMIREZ.
--- NOTE | 2019-09-01 16:11 | NUR ---
SPOKE TO KOBI PATIENTS AND UPDATED ON PATIENT STATUS. HE HAS QUESTIONS FOR DR RAMIREZ, INFORMED THAT I WILL CALL DR RAMIREZ AND INFORM HIM TO CALL WHEN HE IS AVAILABLE.
--- NOTE | 2019-09-01 16:12 | NUR ---
LEFT MESSAGE WITH DR RAMON TO PLACE DISCHARGE SUMMARY AND TRANSFER ORDERS. AWAITING CALL BACK.
--- NOTE | 2019-09-01 16:18 | NUR ---
ORDERS RECEIVED PER DR RAMIREZ: DECREASED VT TO 380. TITRATED FIO2 TO 40%. PT TOLERATING CHANGES WELL, MAINTAINING SPO2 95%. NOTIFIED RN OF CHANGES.
--- NOTE | 2019-09-01 16:32 | NUR ---
SPOKE TO DR RAMON PER CONSULT CARDIOTHORACIC. PER MD HOLD TRANSFER AT THIS TIME.
--- NOTE | 2019-09-01 17:00 | NUR ---
I faxed higher level of care order to [facility], [facility] and [facility]. I called [facility] Transfer Center and spoke with Perico, provided him with contact information for Dr. Goodrich and the nurse's station. I called [facility] and spoke with Sergo-placed them on will call pending transfer to higher level of care. I updated patient's primary nurse on the status of the transfer.
[2019-09-01] MEDS: VANCOMYCIN 1GM/250ML 250 ML IV SCH (17:04)
--- NOTE | 2019-09-01 17:38 | NUR ---
SPOKE TO TANI FROM [facility] AND UPDATED ON PATIENT STATUS. NO BEDS AVAILABLE AT THIS TIME, ONLY ACCEPTING URGENT OR STAT TRANSFERS AT THIS TIME.
--- NOTE | 2019-09-01 18:40 | NUR ---
RT NOTE RECEIVED PT INTUBATED AND ON VENT V2 ON STATED SETTINGS ON HEATED WIRE CIRCUIT. VENT IS PLUGGED TO RED OUTLET. ALARMS ARE ON AND AUDIBLE TO NURSING STATION. AMBU BAG AT BEDSIDE AND CONNECTED TO O2 SOURCE. 8.0 ETT IS SECURED WITH ANCHORFAST AT 22 CM TO THE ORAL RIGHT AND MOVED TO THE LEFT. BILATERAL BS ARE CLEAR/DIMINISHED. PT WAS SUCTIONED FOR MODERATE CLEAR RETURN. HHN GIVEN INLINE WITH 2.5 MG ALBUTEROL AND 0.5 MG ATROVENT WITHOUT ADVERSE REACTION VIA AEROGEN. PT HAS A RIGHT CHEST TUBE NOTED. PT IS ALSO ON COOLING MEASURES. PT TEMP 99.0, CIRCUIT TEMP 34.8 AND WATER IS ADEQUATE. CONT ORDERED. POX 99% Addendum: 09/01/19 at 2114 by Anitha Mcdonnell RT Amended: Links added.
--- NOTE | 2019-09-01 19:00 | NUR ---
RESIDUAL PATIENT HAD 20ML RESIDUAL, RESTARTED TUBE FEEDING AT 20ML/HR.
[2019-09-01] MEDS: Jevity 1.2 Cal/Fiber 1 Liter GT SCH (20:00)
--- NOTE | 2019-09-01 20:00 | NUR ---
ADMITTED ON 08/20/2019. LATERAL STEMI WITH ST ELEVATION. 4 STENTS PLACED IN TEAM PRIMARY CARE PHYSICIAN. PLACED ON BRILINTA. SPONTANEOUS PNEUMOTHORAX. CURRENTLY HAS A CENTER CHEST -CHEST TUBE TO DRY ATRIUM SUCTION. NO AIR LEAK. BLOODY DRNG. ETT TO VENTILATOR. NEW VENTILATOR CHANGES, FIO2 TO 40% AND TV DECREASED TO 380. NEW DTI ON COCCYX. CONTINUES TO SPIKE FEVERS. LIGHT GAG AND COUGH. JEVITY AT 20CC/HR. REGLAN STARTED TODAY. OGT. LUBIN IN PLACE DRAINING YELLOW/ADISLON CLEAR LIQUID TO DOWN DRAIN BAG. RIJ TLC IN PLACE. DRIPS: FENTANYL, VERSED,LEVOPHED AND DOPAMINE FOR RENAL PERFUSION. TRANSFER TO [facility] ON HOLD. DISCONTINUED ZOSYN AND ADDED MEROPENUM.
--- NOTE | 2019-09-01 20:15 | NUR ---
CHEST TUBE OUTPUT MINIMAL RED LIQUID. COOLING BLANKET ON. ICE BAGS TAKEN OFF. TEMP 98.6. NEW PULSE OX PROBE.REPOSITIONED TO RIGHT. OGT RESIDUAL 2 CC. INCREASED THE TUBE FEEDING (JEVITY) TO 30CC/HR. ALL PULSES PALPABLE. NO PERIPHERAL EDEMA. SCDS ON. CHEST TUBE SITE COVERED WITH A VASELINE GAUZE AND A CLEAR DRESSING TO COVER AND SECURE CHEST TUBE. LUNGS SLIGHTLY COARSE. WHITE SECRETIONS FROM THE ETT. PINK ORAL SECRETIONS. ECCHYMOTIC AREAS ON ARMS AND CHEST.
--- NOTE | 2019-09-01 20:24 | NUR ---
RT NOTE ROUTINE VENT CHECK DONE. PT INTUBATED AND ON VENT V2 ON STATED SETTINGS ON HEATED WIRE CIRCUIT. VENT IS PLUGGED TO RED OUTLET. ALARMS ARE ON AND AUDIBLE TO NURSING STATION. AMBU BAG AT BEDSIDE AND CONNECTED TO O2 SOURCE. 8.0 ETT IS SECURED WITH ANCHORFAST AT 22 CM TO THE ORAL LEFT. PT HAS A RIGHT CHEST TUBE NOTED. PT TEMP 98.6, CIRCUIT TEMP 34.9 AND WATER IS ADEQUATE. CONT ORDERED. POX 100% Addendum: 09/01/19 at 2117 by Anitha Mcdonnell RT Amended: Links added.
--- NOTE | 2019-09-01 22:00 | NUR ---
SINUS TACHYCARDIA WITH OCCASIONAL PVCS. REPOSITIONED TO RIGHT. ORAL CARE DONE. ABDOMEN SOFT. OGT RESIDUAL 2CC. NO EDEMA. LUNGS SLIGHTLY COARSE. SUCTIONED WHITE SECRETIONS FROM THE ETT. LOW CHEST TUBE OUTPUT. TUBE FEEDING AT 30CC/HR.
--- NOTE | 2019-09-01 22:13 | NUR ---
RT NOTE ROUTINE VENT CHECK DONE. PT INTUBATED AND ON VENT V2 ON STATED SETTINGS ON HEATED WIRE CIRCUIT. VENT IS PLUGGED TO RED OUTLET. ALARMS ARE ON AND AUDIBLE TO NURSING STATION. AMBU BAG AT BEDSIDE AND CONNECTED TO O2 SOURCE. 8.0 ETT IS SECURED WITH ANCHORFAST AT 22 CM TO THE ORAL LEFT. PT HAS A RIGHT CHEST TUBE NOTED. BILATERAL BS ARE CLEAR/DIM. HHN GIVEN INLINE WITH 2.5 MG ALBUTEROL AND 0.5 MG ATROVENT VIA AEROGEN. PT WAS SUCTIONED FOR MODERATE PINK TINGED RETURN ORALLY AND SMALL CLEAR RETURN FROM ETT. PT TEMP 99.0, CIRCUIT TEMP 34.8 AND WATER IS ADEQUATE. CONT ORDERED. POX 97% Addendum: 09/01/19 at 2314 by Anitha Mcdonnell RT Amended: Links added.
[2019-09-01] MEDS: ATORVASTATIN 20 MG TAB PO SCH (22:38)
[2019-09-02] VITALS (104 sets, daily range): BP systolic 74–136; BP diastolic 43–72
--- NOTE | 2019-09-02 | NUR ---
TACHYCARDIA 119. SBP 115. LEVOPHED OFF FOR ONE HOUR AND DOING WELL. RR VACILLATING FROM 25 TO 35. SHE ACTS IF SOMETHING IS BOTHERING HER. COOLING BLANKET AND FAN TURNED OFF. INCREASED THE FENTANYL TO 250 MCG. HR CAME BACK DOWN TO 107. SBP STABLE. RR IS MORE STABLE AND NOT FLUCTUATING SO MUCH. IT IS NOW STEADY AT 21. SUCTIONED THE ETT FOR WHITE SECRETIONS. ORAL CARE DONE. REPOSITIONED HER TO THE LEFT SIDE. NO FEVER.
--- NOTE | 2019-09-02 00:20 | NUR ---
HAVING MORE FREQUENT PVCS. POTASSIUM CHECKED. 3.9
--- NOTE | 2019-09-02 00:25 | NUR ---
RT NOTE ROUTINE VENT CHECK DONE. PT INTUBATED AND ON VENT V2 ON STATED SETTINGS ON HEATED WIRE CIRCUIT. VENT IS PLUGGED TO RED OUTLET. ALARMS ARE ON AND AUDIBLE TO NURSING STATION. AMBU BAG AT BEDSIDE AND CONNECTED TO O2 SOURCE. 8.0 ETT IS SECURED WITH ANCHORFAST AT 22 CM TO THE ORAL LEFT. PT HAS A RIGHT CHEST TUBE NOTED. PT WAS SUCTIONED FOR SMALL CLEAR RETURN FROM ETT. RN ARSLAN AWARE OF RR AND IS WATCHING CLOSELY. PT TEMP 99.0 ON COOLING MEASURES, CIRCUIT TEMP 34.8 AND WATER IS ADEQUATE. CONT ORDERED. Addendum: 09/02/19 at 0058 by Anitha Mcdonnell RT Amended: Links added.
--- NOTE | 2019-09-02 02:00 | NUR ---
REPOSITIONED. ORAL CARE. LUNGS CLEAR. WHITE SUCTIONED FROM THE ETT. NO CREPITUS. LOW CHEST TUBE OUTPUT. RR 18-20 . TYLENOL FOR INCREASING TEMP. FAN TURNED ON.
--- NOTE | 2019-09-02 02:15 | NUR ---
RT NOTE ROUTINE VENT CHECK DONE. PT INTUBATED AND ON VENT V2 ON STATED SETTINGS ON HEATED WIRE CIRCUIT. VENT IS PLUGGED TO RED OUTLET. ALARMS ARE ON AND AUDIBLE TO NURSING STATION. AMBU BAG AT BEDSIDE AND CONNECTED TO O2 SOURCE. 8.0 ETT IS SECURED WITH ANCHORFAST AT 22 CM TO THE ORAL LEFT. PT HAS A RIGHT CHEST TUBE NOTED. PT WAS SUCTIONED FOR SMALL CLEAR RETURN FROM ETT. RN ARSLAN AWARE OF RR AND IS WATCHING CLOSELY. HHN GIVEN INLINE WITH 2.5 MG ALBUTEROL AND 0.5 MG ATROVENT VIA AEROGEN. PT TEMP 100.0 ON COOLING MEASURES, CIRCUIT TEMP 35.0 AND WATER IS ADEQUATE. CONT ORDERED. POX 93% Addendum: 09/02/19 at 0257 by Anitha Mcdonnell RT Amended: Links added.
[2019-09-02] MEDS: ACETAMINOPHEN 650 mg PER 20 mL UD GT PRN ×2 (02:17→09:14)
[2019-09-02] MEDS: fentaNYL Drip 2500mCg/250mlNS 250 ML IV SCH ×2 (02:19→13:23)
[2019-09-02] MEDS: DOPamine 1600MCG/ML D5W 250 ML IV SCH (02:21)
[2019-09-02] MEDS: MIDAZOLAM DRIP 50 mg/50mL 50 ML IV SCH ×4 (02:23→19:37)
[2019-09-02] MEDS: IPRATROPIUM BROM 0.5 MG/2.5ML INH SOL NEB SCH ×6 (02:23→22:03)
[2019-09-02] MEDS: ALBUTEROL SULF 2.5 MG/0.5ML(0.5%) NEB SOLN NEB SCH ×6 (02:23→22:03)
--- NOTE | 2019-09-02 03:00 | NUR ---
COOLING BLANKET ON. FENTANYL BACK TO 200 MCG/HR. SUCTIONED THE ETT FOR A SMALL AMOUNT OF WHITE SECRETIONS. LEVOPHED ON . SBP FELL INTO THE 70S.
--- NOTE | 2019-09-02 04:00 | NUR ---
TEMPERATURE DOWN. SINUS TACHYCARDIA WITH RARE PVC. RR 20. O2 SAT.98. NO CHANGE IN FIO2 TONIGHT. MINIMAL CHEST TUBE OUTPUT. NO CREPITUS.
[2019-09-02 04:29] LABS: Hematocrit 23.5 % (36.0-46.0); Hemoglobin 8.1 g/dL (12.2-16.2); Mean Corpuscular Hemoglobin 30.3 pg (28.0-32.0); Mean Corpuscular Hgb Conc. 34.5 g/dL (32.0-36.0); Mean Corpuscular Volume 87.7 fL (80.0-100.0); Platelet Count (auto) 735 10^3/uL (140-450); Red Blood Cells 2.67 10^6/uL (4.0-5.20); Red Cell Distribution Width 13.9 % (11.8-14.3); White Blood Cell 26.1 10^3/uL (4.4-10.8)
--- NOTE | 2019-09-02 04:30 | NUR ---
RT NOTE ROUTINE VENT CHECK DONE. PT INTUBATED AND ON VENT V2 ON STATED SETTINGS ON HEATED WIRE CIRCUIT. VENT IS PLUGGED TO RED OUTLET. ALARMS ARE ON AND AUDIBLE TO NURSING STATION. AMBU BAG AT BEDSIDE AND CONNECTED TO O2 SOURCE. 8.0 ETT IS SECURED WITH ANCHORFAST AT 22 CM TO THE ORAL LEFT. PT HAS A RIGHT CHEST TUBE NOTED. PT WAS SUCTIONED FOR SMALL CLEAR RETURN FROM ETT AND SMALL PINK TINGED ORALLY. RN ARSLAN AWARE OF RR AND IS WATCHING CLOSELY. INLINE SUCTION CHANGED WITHOUT INCIDENT. PT TEMP 99.7 ON COOLING MEASURES, CIRCUIT TEMP 35.0 AND WATER IS ADEQUATE. CONT ORDERED. POX 97% Addendum: 09/02/19 at 0442 by Anitha Mcdonnell RT Amended: Links added.
[2019-09-02 04:55] LABS: Albumin 2.4 g/dL (3.4-5.0); Calcium 8.9 mg/dL (8.5-10.1); Potassium 3.9 mmol/L (3.5-5.1)
[2019-09-02 05:01] LABS: BUN/Creatinine Ratio 32.6; Bilirubin, Total 2.2 mg/dL (0.2-1.0); Total Protein 6.1 g/dL (6.4-8.2)
--- NOTE | 2019-09-02 05:06 | NUR ---
COOLING BLANKET OFF
[2019-09-02 05:07] LABS: Basophils % (manual) 0 (0.0-2.0); Blast Cells 0; Eosinophils % (manual) 0 (0-7); Metamyelocytes % 0; Myelocytes % 0; Promyelocytes % 0; Reactive Lymphocytes 0
[2019-09-02] MEDS: POTASSIUM CHL 20MEQ/100ML 100 ML IV SCH (05:15)
[2019-09-02] MEDS: VANCOMYCIN 1GM/250ML 250 ML IV SCH ×2 (05:15→17:14)
[2019-09-02] MEDS: METOCLOPRAMIDE HCL 5MG/ml INJ 2ml VIAL IV SCH ×3 (05:35→21:54)
[2019-09-02] MEDS: TICAGRELOR 90 MG TAB PO SCH ×2 (05:35→18:10)
[2019-09-02] MEDS: MEROPENEM 1GM IVPB 100 ML IV SCH ×3 (05:36→21:53)
--- NOTE | 2019-09-02 06:00 | NUR ---
DAILY KCL REPLACEMENT GIVEN FOR 3.9
[2019-09-02 06:14] LABS: Monocytes % (manual) 6 (0-12)
[2019-09-02 06:20] LABS: Band Neutrophils % (manual) 5; Lymphocytes % (manual) 4 (10.0-50.0)
--- NOTE | 2019-09-02 07:00 | NUR ---
REPORT RECEIVED FROM EDGE CUTTING MACHINE OPERATOR NURSE. PATIENT RESTING IN BED INTUBATED AND SEDATED. RESPIRATIONS EVEN AND UNLABORED. NO SIGNS OF ACUTE DISTRESS NOTED. BED IN LOW POSITION. WILL CONTINUE TO MONITOR.
[2019-09-02] MEDS: PHENYLEPHRINE IV 250 ML IV SCH ×2 (07:30→17:02)
--- NOTE | 2019-09-02 08:10 | NUR ---
TUBE FEEDINGS STOPPED PATIENT HAD HIGH RESIDUALS AND ABSENT BOWEL SOUNDS. WILL REASSESS PATIENT THROUGHOUT THE DAY.
[2019-09-02] MEDS: NOREPINEPHRINE 8 MG/250ML KIT 250 ML IV SCH (08:27)
--- NOTE | 2019-09-02 08:34 | NUR ---
I placed a call to Dr. Goodrich to discuss the transfer of this patient and clarify reason for transfer-no answer and voice mailbox was full-unable to leave a message.
--- NOTE | 2019-09-02 08:55 | NUR ---
DR DIAZ AT BEDSIDE TO ASSESS PATIENT AND DISCUSS PLAN OF CARE. NO NEW ORDERS AT THIS TIME.
--- NOTE | 2019-09-02 09:10 | NUR ---
I received a call from Anitha at the [facility] Transfer [facility] letting me know that they have no ICU beds available at this time.
--- NOTE | 2019-09-02 10:15 | NUR ---
DR RAMON AT BEDSIDE TO ASSESS PATIENT AND DISCUSS PLAN OF CARE. PER MD CONTINUE WITH TRANSFER TO HIGHER LEVEL OF CARE. ALL ORDERS NOTED IN CHART.
[2019-09-02] MEDS: ASPirin 81 mg TAB PO SCH (10:48)
[2019-09-02] MEDS: POTASSIUM EFFERVESENT TAB 25 MEQ GT SCH (10:48)
[2019-09-02] MEDS: FAMOTIDINE (10MG/ML) 2ML VL IV SCH ×2 (10:48→21:54)
--- NOTE | 2019-09-02 12:00 | NUR ---
RESIDUALS RESIDUALS 20ML, RESTARTED TUBE FEEDINGS AT THIS TIME. WILL CONTINUE TO MONITOR. Addendum: 09/02/19 at 1554 by Gretchen Moses RN CORRECT TIME 0300
--- NOTE | 2019-09-02 12:45 | NUR ---
DR RAMIREZ AT BEDSIDE TO ASSESS PATIENT AND DISCUSS PLAN OF CARE. DR RAMIREZ SPOKE TO AND REVIEWED CT SCAN RESULTS AND PATIENT PLAN OF CARE.
--- NOTE | 2019-09-02 15:42 | NUR ---
Nutrition Follow-up Notes Wt.: 64.0 kg Pt intubated sedated with no bowel sounds. Pt NPO with EN support on hold as per RN pt was not tolerating, had high residuals. Pt was on EN support with Jevity running @ 20 ml/hr. Will continue to closely monitor pertinent labs, PO intake and skin status prn. Will followup in 2-3 days Est energy needs 0266-5644 kcal (27-30 kcal/kg BW 62kg) Est protein needs 50-62g (0.8-1g/kg) Labs: GLU 125 H, ALB 2.4 L GI: Pt had 1 BM 6/3 per RN doc. Skin: Paresh scale 10, high risk. Please refer to wound assessment report for full details PES: 1) Inadequate PO intake r.t current medical condition aeb pt`s intubated Recommendations: 1) Resume EN support with Jevity at 60 mL/hr per MD approval. 2) When medically feasible advance diet to oral. 3) f/u 2-3 days
--- NOTE | 2019-09-02 16:07 | NUR ---
Respiratory note: PT FI02 INCREASED TO 60% DUE TO PT SP02 89-90%. RN AWARE.
--- NOTE | 2019-09-02 16:10 | NUR ---
I received a message from Anitha at [facility]-they still have no ICU beds available at this time. I called [facility] and spoke with Inna in Admissions-they have no ICU beds available at this time.
--- NOTE | 2019-09-02 16:30 | NUR ---
I received a call from [facility] Transfer [facility] letting me know that they have accepted this patient-no beds available right now-I faxed them the negative COVID-19 test result. [facility] to fax a transfer back agreement. I called [facility]-spoke with Sergo-they remain on will-call pending transfer to [facility]. Medicare form faxed to [facility].
--- NOTE | 2019-09-02 17:05 | NUR ---
Respiratory note: FI02 DECREASED TO 55%.
--- NOTE | 2019-09-02 19:00 | NUR ---
Report received from RASTA Guerrero. Patient has Pericardial Drain intact to medial chest site. Dr. Hartley will come to discontinue Pericardial Drain. Will continue with POC; and, will continue to monitor VS & clinical status. Patient complaining of pain 12/01 per report. Addendum: 09/02/19 at 2004 by Geo Sterling RN DISREGARD NOTE: CHARTED ON WRONG PATIENT.
--- NOTE | 2019-09-02 19:12 | NUR ---
Report received RASTA Guerrero. Patient has Jevity 1.2 TF at 20 ml/hr via OGT; Fentanyl drip 200 mcg/hr (20 ml/hr); Versed Drip 10 mg/hr (10 ml/hr); Dopamine drip 2.492 mcg/kg/hr (5.56 ml/hr); Levophed drip 4 mcg/min (7.5 ml/hr). Will continue with POC; and, will continue to monitor VS, focus on BP, and clinical status. Addendum: 09/02/19 at 2022 by Geo Sterling RN Furthermore, Patient intubated ETT 8.0 at 22 cm L/L; AC 16, FiO2 40%, Vt380, PEEP 3.
--- NOTE | 2019-09-02 19:35 | NUR ---
Upon initial interview and assessment, patient complain of back pain 12/01. Patient instructed chief underwriter will medicate him. Addendum: 09/02/19 at 2007 by Geo Sterling RN DISREGARD NOTE: CHARTED ON WRONG PATIENT.
[2019-09-02] MEDS: ATORVASTATIN 20 MG TAB PO SCH (21:55)
--- NOTE | 2019-09-02 23:01 | NUR ---
Cooling measures applied: Ice packs to nuchal, groin, and bilateral axillary regions.
[2019-09-03] VITALS (110 sets, daily range): BP systolic 77–130; BP diastolic 39–71
--- NOTE | 2019-09-03 | NUR ---
OGT TF Residual: 22 ml. Will continue current Jevity 1.2 TF at 20 ml/hr.
--- NOTE | 2019-09-03 | NUR ---
Levophed drip decrease to 2.997 mcg/min due to BP104/71.
--- NOTE | 2019-09-03 01:00 | NUR ---
Levophed drip decrease to 2 mcg/min due to BP 120/63.
[2019-09-03] MEDS: PHENYLEPHRINE IV 250 ML IV SCH ×3 (01:22→17:44)
--- NOTE | 2019-09-03 01:22 | NUR ---
Neosynephrine drip held due to BP 120/63, Levophed drip in-progress at 2 mcg/min, Dopamine drip at 2/495 mcg/kg/min,
[2019-09-03] MEDS: ALBUTEROL SULF 2.5 MG/0.5ML(0.5%) NEB SOLN NEB SCH ×6 (01:49→22:43)
[2019-09-03] MEDS: IPRATROPIUM BROM 0.5 MG/2.5ML INH SOL NEB SCH ×6 (01:49→22:43)
[2019-09-03] MEDS: fentaNYL Drip 2500mCg/250mlNS 250 ML IV SCH ×3 (01:52→20:55)
--- NOTE | 2019-09-03 01:52 | NUR ---
Fentanyl drip replaced with new bag; however, new bag had leak. Fentanyl wasted and replaced with new bag.
[2019-09-03] MEDS: MIDAZOLAM DRIP 50 mg/50mL 50 ML IV SCH ×5 (02:06→23:00)
--- NOTE | 2019-09-03 02:06 | NUR ---
Versed replaced with new bag and continued at 10 mg/hr.
[2019-09-03] MEDS: NOREPINEPHRINE 8 MG/250ML KIT 250 ML IV SCH ×2 (02:30→12:12)
--- NOTE | 2019-09-03 02:30 | NUR ---
Levophed bag replaced with new bag and resumed current infusion at 2 mcg/min.
--- NOTE | 2019-09-03 03:00 | NUR ---
Levophed drip decrease to 113/63 due to BP 113/63.
--- NOTE | 2019-09-03 03:43 | NUR ---
Kettle Operator Head at bedside. Wardrobe Image Consultant collected blood and specimen given to Phlebotomists then sent to lab.
--- NOTE | 2019-09-03 04:00 | NUR ---
Jevity 1.2 TF Residual: 27 ml. Jevity 1.2 increase to 30 ml/hr.
[2019-09-03] MEDS: VANCOMYCIN 1GM/250ML 250 ML IV SCH (04:31)
--- NOTE | 2019-09-03 04:40 | NUR ---
Complete bed bath and linen change given.
[2019-09-03] MEDS: METOCLOPRAMIDE HCL 5MG/ml INJ 2ml VIAL IV SCH ×3 (05:23→22:06)
[2019-09-03] MEDS: TICAGRELOR 90 MG TAB PO SCH ×2 (05:24→17:50)
[2019-09-03] MEDS: MEROPENEM 1GM IVPB 100 ML IV SCH ×3 (05:37→22:06)
--- NOTE | 2019-09-03 06:01 | NUR ---
Levophed drip stopped due to BP 104/79.
--- NOTE | 2019-09-03 08:00 | NUR ---
GASTRIC RESIDUAL PLACEMENT VERIFIED VIA AUSCULTATION AND CXR. NO GASTRIC RESIDUAL NOTED. TF TO REMAIN AT 30ML/HR. ASPIRATION PRECAUTIONS IN PLACE.
[2019-09-03 08:22] LABS: Basophils # (auto) 0.1 10 ^3/uL (0-0.2); Eosinophils # (auto) 0.1 10 ^3/uL (0-0.8); Eosinophils % (auto) 0.4 % (0.0-7.0); Lymphocytes # (auto) 0.8 10 ^3/uL (0.4-5.4); Mean Corpuscular Hemoglobin 29.4 pg (28.0-32.0); Mean Corpuscular Hgb Conc. 33.2 g/dL (32.0-36.0); Monocytes # (auto) 1.3 10 ^3/uL (0-1.3); Nucleated Red Blood Cells % 0.1 %; Red Cell Distribution Width 13.9 % (11.8-14.3)
[2019-09-03 08:24] LABS: Basophils % (auto) 0.3 % (0.0-2.0); Hematocrit 23.1 % (36.0-46.0); Hemoglobin 7.7 g/dL (12.2-16.2); Lymphocytes % (auto) 3.7 % (10.0-50.0); Mean Corpuscular Volume 88.5 fL (80.0-100.0); Neutrophils # (auto) 19.2 10 ^3/uL (1.6-8.6); Neutrophils % (auto) 89.6 % (37.0-80.0); Red Blood Cells 2.61 10^6/uL (4.0-5.20); White Blood Cell 21.5 10^3/uL (4.4-10.8)
--- NOTE | 2019-09-03 08:30 | NUR ---
CHEST TUBE DRESSING CHANGE COMPLETED PATIENTS CHEST TUBE TO ANTERIOR CHEST CHANGED. SURROUNDING TISSUE ON INCISION SITE NOTED TO HAVE A SMALL AMOUNT OF ECCHYMOSIS/ DISCOLORATION. SUTURE TO CHEST INTACT. CATHETER AT 23CM MARKER. AREA CLEANSED WITH CHLORAPREP SWAB, PETROLEUM BASED GAUZE PLACED OVER SITE AND CATHETER. 2- 4X4 GAUZE PLACED UNDER SKIN FOR PRESSURE RELIEF, TEGADERM PLACED OVER SITE. ATRIUM CHAMBER AT 20CM H20 SUCTION. NO AIR LEAK/ OR BUBBLING NOTED. PATIENT CONTINUES TO HAVE SLIGHT LABORED BREATHING WITH RR 26-35. SEDATION INCREASED FOR COMFORT PER PROTOCOL/ MD COMMUNICATION ORDER.
[2019-09-03 08:32] LABS: Platelet Count (auto) 761 10^3/uL (140-450)
--- NOTE | 2019-09-03 08:32 | NUR ---
CRITICAL LAB CRITICAL PLATELET COUNT OF [id number]. PAGED TO NOTIFY.
[2019-09-03 08:41] LABS: Albumin 2.1 g/dL (3.4-5.0); Calcium 8.6 mg/dL (8.5-10.1); Potassium 3.9 mmol/L (3.5-5.1)
[2019-09-03 08:45] LABS: BUN/Creatinine Ratio 36.1; Bilirubin, Total 1.7 mg/dL (0.2-1.0); Total Protein 5.9 g/dL (6.4-8.2)
--- NOTE | 2019-09-03 08:45 | NUR ---
Central Line Dressing Changed Central line dressing change done with a sterile technique. Cleansed with chloraprep scrub. Bio-patch as available. Occlusive dressing applied. See e-MAR for medications given during this visit.
--- NOTE | 2019-09-03 09:00 | NUR ---
Cooling Measures applied. Patient currently has temp of 100.8 , cooling measures in place.
--- NOTE | 2019-09-03 09:00 | NUR ---
[facility] CALLED STATING THERE IS NO ICU BED AVAILABLE.
--- NOTE | 2019-09-03 09:21 | NUR ---
MD UPDATED ON PATIENTS STATUS. MD AWARE OF RR NOTED 30'S, MD AWARE OF PLT COUNT, TRENDING [facility]. NEW ORDERS IN PLACE.
[2019-09-03] MEDS: PROPOFOL 100 ML IV SCH (09:22)
[2019-09-03] MEDS: POTASSIUM EFFERVESENT TAB 25 MEQ GT SCH ×2 (10:00→15:01)
--- NOTE | 2019-09-03 10:00 | NUR ---
AT BEDSIDE DR. RAMON UPDATED ON PATIENT STATUS. NEW ORDERS IN PLACE. VERIFIED WITH MD IF HE WOULD LIKE POTASSIUM PO AND IV ADMINISTERED WITH K OF 3.9. MD STATED OK TO ADMINISTER. SEMAPHORE OPERATOR PAPER SIGNED BY MD AND FAXED REQUESTED.
[2019-09-03] MEDS: FAMOTIDINE (10MG/ML) 2ML VL IV SCH ×2 (10:04→22:06)
[2019-09-03] MEDS: POTASSIUM CHL 20MEQ/100ML 100 ML IV SCH (10:05)
[2019-09-03] MEDS: ASPirin 81 mg TAB PO SCH (10:05)
--- NOTE | 2019-09-03 10:30 | NUR ---
Family updated on pt status/ BELONGINGS Family of [facility] updated on patient's status and condition. All questions and concerns addressed. verbalized understanding. aware patients hand are noted to be swollen, yellow band (ring) removed. requesting to picking table worker ring and not be sent to in house safe. Ring to remain at bedside until arrives today. Addendum: 09/03/19 at 1514 by Cecily Strong RN Ring picked up from [facility]. Belongings list updated as stated he already took home patients purse and phone. Upper and lower dentures to remain at bedside per .
[2019-09-03] MEDS: DOPamine 1600MCG/ML D5W 250 ML IV SCH (11:45)
--- NOTE | 2019-09-03 12:04 | NUR ---
I spoke with Kathy at [facility], they have no beds available. I spoke with Karen at [facility], they have accepted the patient but no ICU beds available at this time. I called [facility] and left message for supervisor feed house asking about bed availability. I called [facility] and spoke with Inna in Admitting, she said they have no beds available at this time. I called patient's Alex Fulton [phone] to update him on the status of the transfer, I made him aware of all the facilities that I had reached out to. Per Alex, he is agreeable to have her transferred to any place with an available bed.
--- NOTE | 2019-09-03 12:13 | NUR ---
Patient sensitive to Levophed. Per md ok titrate at small increments. See orders
--- NOTE | 2019-09-03 12:56 | NUR ---
I attempted to fax transfer back agreement to [facility]-will not go through-fax says "no response"-tried on 2 different fax machines. I called [facility] and spoke with Karen, she said that is the only fax number they have, they will look into the issue and give me a call back.
[2019-09-03] MEDS: Jevity 1.2 Cal/Fiber 1 Liter GT SCH (13:04)
[2019-09-03] MEDS: VANCOMYCIN 750mg/250ml 250 ML IV SCH ×2 (13:12→20:52)
--- NOTE | 2019-09-03 15:24 | NUR ---
I spoke with Moni at the [facility], she confirmed that they did receive the transfer back agreement.
--- NOTE | 2019-09-03 17:45 | NUR ---
DATABASE DESIGNER AT BEDSIDE. SEE NEW ORDERS/ NOTES.
--- NOTE | 2019-09-03 18:20 | NUR ---
TUBE FEEDINGS TOLERATED TF INFUSING AT 20ML/HR. 10CC OF GASTRIC RESIDUAL. ASPIRATION PRECAUTIONS IN PLACE.
--- NOTE | 2019-09-03 19:49 | NUR ---
ADMITTED WITH CHEST PAIN RADIATING TO NECK AND EAR. ALSO NAUSEA-VOMITING. STEMI DIAGNOSIS. VISUAL MERCHANDISING ASSISTANT WITH DR CHRISTIAN THE SAME DAY. DR CHRISTIAN PLACED 4 STENTS. DURING HER TIME IN [place] SHE GOT INTO RESPIRATORY DISTRESS , INTUBATED AND BROUGHT TO ICU. DR HUDSON PERFORMED THE 32 FR CHEST TUBE SHE CURRENTLY HAS IN THE RIGHT CHEST. THE AMOUNT OF DRNG HAS BEEN DECREASING OVER TIME. IT HAS ALWAYS BEEN SANGUINOUS. THE CREPITUS OVER THE TOP OF THE CHEST TUBE HAS SUBSIDED. NO AIR LEAK. NO DRNG AT THE CHEST TUBE SITE INSERTION AREA. ON 20CM OF SUCTION. ABDOMEN ROUNDED AND BOUNCY. HYPOACTIVE BOWEL SOUNDS. OGT WITH JEVITY RUNNING AT 20CC/HR. RESIDUAL 5CC. NO STOOL. RECTAL TEMP PROBE IN PLACE. NO FEVER CURRENTLY. COOLING BLANKET TURNED OFF. HR HAD BEGUN GOING UP TO 110 FROM 100 AND HER RESPIRATORY RATE IS IRREGULAR IN THAT SHE IS STACKING BREATHS. HER NORMAL RR IS 23, BUT AN EXTRA BREATH GETS THROWN IN SEVERAL TIMES AN HOUR. MY EXPERIENCE WITH HER TEMPERATURES IS THAT WHEN SHE IS FINALLY NORMAL, SHUT OFF THE COOLING BLANKET BECAUSE THE HR LETS US KNOW SHE IS BOTHERED BY IT. PREVIOUSLY , SHE WILL CALM DOWN AND THE HEART RATE WILL GO BACK TO NORMAL. ALL PULSES ARE PALPABLE. NO EDEMA. BILATERAL LUNG COARSENESS. THREE FIRST TOES OF THE RIGHT FOOT POSTERIORLY ARE DARK. PEDAL PULSES ARE WEAK. RADIALS ARE STRONG. SCDS ARE ON. LUBIN IN PLACE DRAINING CLEAR YELLOW LIQUID. ARMS AND LEGS ARE A LITTLE STIFF. DTI ON COCCX. SKIN IS DRY. REPOSITIONED TO BACK. HOB ELEVATED. ORAL CARE DONE.
--- NOTE | 2019-09-03 21:00 | NUR ---
TYLENOL FOR TEMP OF 100.8. COOLING BLANKET RESUMED. ICE BAG IN EACH AXILLA. LARGE AMOUNT OF CLOUDY ORAL SECRETIONS. TUBE FEEDING INCREASED TO 30L/HOUR. VANCOMYCIN BEING INFUSED. HR COMING DOWN FROM 112 TO 105.
[2019-09-03] MEDS: ACETAMINOPHEN 650 mg PER 20 mL UD GT PRN (21:04)
[2019-09-03] MEDS: ATORVASTATIN 20 MG TAB PO SCH (22:07)
--- NOTE | 2019-09-03 22:36 | NUR ---
SBP 83/50. LEVOPHED INCREASE. TEMP NORMAL. COOLING BLANKET OFF. NSR RATE 90. RR 20
--- NOTE | 2019-09-03 23:13 | NUR ---
HR 86, THEN JUMPED TO 102 WITH A SUDDEN INCREASE IN SYSTOLIC BP FROM 91 TO 119. LEVOPHED DECREASED TO 6MCG/MIN
[2019-09-04] VITALS (103 sets, daily range): BP systolic 73–150; BP diastolic 35–72
--- NOTE | 2019-09-04 | NUR ---
REPOSITIONED TO BACK. ST 102 WITH OCCASIONAL PVCS. SBP UNSTABLE . LEVOPHED INCREASED FOR A SYSTOLIC OF 74/44. 2CC RESIDUAL FROM THE OGT. JEVITY INCREASED FROM 30-35CC PER HOUR. LUNGS COARSE. SUCTIONED FROM THE ETT A SMALL AMOUNT OF WHITE SECRETIONS. ORAL CARE DONE. ABDOMEN ROUND AND BOUNCY. NO BM YET. LUBIN DRAINING CLEAR YELLOW LIQUID TO DOWN DRAIN BAG. CHEST TUBE DRAINING A DARK RED LIQUID IN SMALL AMOUNTS. NO CREPITUS. NO AIR LEAK IN ATRIUM. SUCTION ON .
--- NOTE | 2019-09-04 00:30 | NUR ---
[facility] CALLED TO LET ME KNOW THERE WERE STILL NO ICU BEDS.
--- NOTE | 2019-09-04 00:55 | NUR ---
OVER THE PAST 30 MINUTES THE BLOOD PRESSURE STARTED DROPPING AGAIN. LEVOPHED TITRATION RATE SPED UP TO KEEP THE SYSTOLIC > 90.
[2019-09-04] MEDS: NOREPINEPHRINE 8 MG/250ML KIT 250 ML IV SCH ×3 (01:07→21:00)
--- NOTE | 2019-09-04 01:22 | NUR ---
BP DROPPING. LEVOPHED INCREASE
[2019-09-04] MEDS: IPRATROPIUM BROM 0.5 MG/2.5ML INH SOL NEB SCH ×4 (02:04→22:10)
[2019-09-04] MEDS: ALBUTEROL SULF 2.5 MG/0.5ML(0.5%) NEB SOLN NEB SCH ×4 (02:04→22:10)
[2019-09-04] MEDS: PHENYLEPHRINE IV 250 ML IV SCH ×3 (02:22→19:02)
--- NOTE | 2019-09-04 04:00 | NUR ---
STARTING PRECEDEX. NSR WITH AN OCCASIONAL PVC. SBP HAS BEEN STABLE NOW FOR 3 HOURS. RR HAS BEEN 18-20. NOT SUCTIONING MUCH FROM THE ETT. THICK CLOUDY ORAL SECRETIONS. IV SITE SHOWS NO REDNESS, SWELLING OR DRNG. CHEST TUBE DRAINING A SMALL AMOUNT OF DARK RED LIQUID.
[2019-09-04] MEDS: MIDAZOLAM DRIP 50 mg/50mL 50 ML IV SCH ×2 (04:40→17:33)
[2019-09-04] MEDS: fentaNYL Drip 2500mCg/250mlNS 250 ML IV SCH ×2 (04:44→20:00)
[2019-09-04] MEDS: DexMEDEtomidine 400 MCG in D5W 5% 96 ML IV SCH ×2 (04:45→18:35)
[2019-09-04] MEDS: VANCOMYCIN 750mg/250ml 250 ML IV SCH ×3 (05:00→21:29)
--- NOTE | 2019-09-04 05:10 | NUR ---
TEMPERATURE BEGINNING TO GO UP. TYLENOL GIVEN.
--- NOTE | 2019-09-04 05:31 | NUR ---
[facility] SENT
[2019-09-04] MEDS: MEROPENEM 1GM IVPB 100 ML IV SCH ×3 (05:52→22:00)
[2019-09-04] MEDS: METOCLOPRAMIDE HCL 5MG/ml INJ 2ml VIAL IV SCH ×3 (05:53→22:00)
[2019-09-04] MEDS: TICAGRELOR 90 MG TAB PO SCH ×2 (05:53→17:32)
--- NOTE | 2019-09-04 05:54 | NUR ---
WEANING DOWN THE FENTANYL AND VERSED. ON PRECEDEX
--- NOTE | 2019-09-04 06:40 | NUR ---
WEANING DOWN OF FENTANYL AND VERSED SUCCESSFUL.
--- NOTE | 2019-09-04 08:00 | NUR ---
AM ASSESSMENT COMPLETED PT REMAINS INTUBATED, WEANING DOWN SEDATION FOR CPAP TRIAL IF PT TOLERATES THIS AM. PT IS RECOVERING POST STEMI WITH 4 STENT PLACEMENT AND POST PNEUMOTHORAX TO RT LUNG WITH CT. CT TO 20 CM 0F H 2O SUCTION NO CREPITUS AT CT INSERTION SITE, NO LEAK AT WATER SEAL CHAMBER CT WITH MINIMAL MAROON SEROUS DRAINAGE. LS WITH RH IN UPPER LOBES AND DIMINISHED ON THE BASES. SUCTIONED COPIOUS AMOUNTS OF THICK ROBBINS ORAL & ETT SECRETIONS. ORAL CARE RENDERED AT THIS TIME. PT CURRENTLY ON LEVOPHED FOR BE SUPPORT, VERSED, FENTANYL,PRECEDEX GTT SEDATION IS BEEN WEANED OFF FOR CPAP TRIAL THIS AM. REFER TO IF FLOW SHEET FOR TITRATION. PT'S SKIN ASSESSED, ALL DRESSINGS REMAINED CDI. PT HAS MULTIPLE SKIN BREAK DOWN, PT IS ON AN AIR MATTRESS BED AND IS BEING REPOSITIONED EVERY TWO HOURS. PT CURRENTLY FEBRILE, AND IS LAYING ON A COOLING BLANKET THAT IS BEEN TURNED ON AND OFF PT. SPIKES FEVERS, PT'S FEVERS ARE ALSO BEEN TREATED WITH TYLENOL.
[2019-09-04 08:31] LABS: Eosinophils % (auto) 1.1 % (0.0-7.0); Hemoglobin 8.3 g/dL (12.2-16.2); Lymphocytes # (auto) 1.2 10 ^3/uL (0.4-5.4)
[2019-09-04 08:32] LABS: Basophils # (auto) 0.1 10 ^3/uL (0-0.2); Basophils % (auto) 0.6 % (0.0-2.0); Eosinophils # (auto) 0.2 10 ^3/uL (0-0.8); Hematocrit 24.9 % (36.0-46.0); Lymphocytes % (auto) 5.6 % (10.0-50.0); Mean Corpuscular Hemoglobin 30.3 pg (28.0-32.0); Mean Corpuscular Hgb Conc. 33.5 g/dL (32.0-36.0); Mean Corpuscular Volume 90.5 fL (80.0-100.0); Monocytes # (auto) 1.8 10 ^3/uL (0-1.3); Neutrophils # (auto) 18.8 10 ^3/uL (1.6-8.6); Neutrophils % (auto) 84.7 % (37.0-80.0); Red Blood Cells 2.75 10^6/uL (4.0-5.20); Red Cell Distribution Width 14.1 % (11.8-14.3); White Blood Cell 22.2 10^3/uL (4.4-10.8)
[2019-09-04 08:36] LABS: Platelet Count (auto) 958 10^3/uL (140-450)
[2019-09-04 09:21] LABS: Calcium 8.4 mg/dL (8.5-10.1)
[2019-09-04] MEDS: PROPOFOL 100 ML IV SCH (09:22)
[2019-09-04] MEDS: POTASSIUM CHL 20MEQ/100ML 100 ML IV SCH (09:34)
[2019-09-04] MEDS: ASPirin 81 mg TAB PO SCH (09:38)
[2019-09-04] MEDS: FAMOTIDINE (10MG/ML) 2ML VL IV SCH ×2 (09:38→22:00)
[2019-09-04] MEDS: POTASSIUM EFFERVESENT TAB 25 MEQ GT SCH (09:38)
--- NOTE | 2019-09-04 12:06 | NUR ---
Nutrition Follow-up Notes Wt.: 65.8 kg Pt intubated sedated with no bowel sounds. Pt NPO with EN support with Jevity running @ 35 ml/hr provding 1008 kcals and 45 gm proteins. Est energy needs 6839-4798 kcal (27-30 kcal/kg BW 62kg) Est protein needs 50-62g (0.8-1g/kg) Labs: GLU 148 H, CA 8.4 L, ALB 2.1 L, DAMON 1.7 H GI: Pt had 1 BM 6/3 per RN doc. Skin: Paresh scale 14 mod risk. Please refer to wound assessment report for full details PES: 1) Inadequate PO intake r.t current medical condition aeb pt`s intubated Recommendations: 1) Advance EN support with Jevity at 60 mL/hr per MD approval. 2) When medically feasible advance diet to oral. 3) f/u 2-3 days
--- NOTE | 2019-09-04 14:00 | NUR ---
RE-SEDATED PT PT NOT FULLY AWAKE, SHE BECAME TACHYPNEIC, TACHYCARDIC, I NOTIFIED DR. FLORES, HE WANTS TO TRY CPAP TRIAL IN AM WITH PRECEDEX.
[2019-09-04] MEDS: ACETAMINOPHEN 650 mg PER 20 mL UD GT PRN ×2 (14:04→19:44)
--- NOTE | 2019-09-04 14:42 | NUR ---
UPDATED PT'S SPOUSE ON CPAP NOT BEING ATTEMPTED TODAY BECAUSE PT WAS NOT FULLY ABLE TO WAKE UP WHILE OFF SEDATION WHEN SHE STARTED TO BREATH FAST IN THE MID 30'S DESPITE ANTI- ANXIETY MEDICATION. [facility] CALLED TO REQUEST 2ND FORM TO AUTHORIZE TRANSFER WHICH WAS NOT SENT TO [facility] YESTERDAY AND NOW FORM WAS FAXED TO THEM. I TOLD PT'S THAT CPAP TRIAL WILL BE ATTEMPTED AGAIN TOMORROW. PT'S VERBALIZED UNDERSTANDING OF POC.
--- NOTE | 2019-09-04 19:35 | NUR ---
ADMITTED WITH CHEST PAIN.POSITIVE TROPONINS. DR CHRISTIAN TOOK HER TO THE [employer] AND INSERTED 4 STENTS, 1 TO THE OM, 1 TO THE CX, AND 2 TO THE LAD. AFTER RETURNING TO ICU, SHE WAS FOUND TO HAVE AN 80% PNEUMOTHORAX. PLEURX CHEST TUBES INSERTED BY DR SNOWDEN AND DR RAMIREZ. LATER DR HUDSON TOOK THE PATIENT TO THE OR AND REMOVED THE OTHER CHEST TUBES AND INSERTED A LARGE BORE CHEST TUBE INTO THE RIGHT UPPER CHEST. OVER THE COURSE OF SEVERAL DAYS IT DRAINED BLOODY DRNG. NOW, THE COLOR IS MORE BURGUNDY AND LESS IN AMOUNT. NO CREPITUS. CHEST TO 20CM OF DRY ATRIUM SUCTION. CHEST TUBE IS SUTURED AND SECURED WITH TAPE, VASELINE GAUZE AT INSERTION SITE. ABDOMEN IS ROUND AND SOFT. JEVITY FS IS RUNNING AT 30CC/HR. LOW RESIDUAL. NO BM. RECTAL TEMP PROBE IS IN AND READING 100 DEGREES. HR IS 112 AND HER RESPIRATORY RATE IS 35. LUNGS COARSE. NO PERIPHERAL EDEMA. RADIAL PULSES STRONG AND PALPABLE. PEDALS ARE WEAKER AND PALPABLE. SCDS ON. LUBIN IN PLACE DRAINING CLEAR YELLOW LIQUID TO DOWN DRAIN BAG. IV ACCESS: RIJ TLC. CURRENT DRESSSING AND BIOPATCH AT IV SITE. ON BRILINTA FOR HER STENTS. ANTIBIOTICS BEING GIVEN. TYLENOL GIVEN.
[2019-09-04] MEDS: Jevity 1.2 Cal/Fiber 1 Liter GT SCH (20:00)
--- NOTE | 2019-09-04 21:36 | NUR ---
TEMPERATURE NORMAL . COOLING BLANKET OFF. INCREASE IN SEDATION BROUGHT THE HEART RATE FROM 117 TO 107 AND THE RR FROM 35 TO 25
--- NOTE | 2019-09-04 22:00 | NUR ---
SLEEPING. CBI AT A FAST DRIP RATE. URINE IS PINK. NSR 69 WITH BBB. NO FEVER. HAS BEEN MORE QUIET. JUST CALLED. IV SHOWS NO REDNESS OR SWELLING.
[2019-09-04] MEDS: ATORVASTATIN 20 MG TAB PO SCH (22:06)
--- NOTE | 2019-09-04 22:42 | NUR ---
VSS. REPOSITIONED. MODERATE AMOUNT OF THICK WHITE ETT SECRETIONS. ORAL CARE DONE. MINIMAL BURGUNDY LIQUID IN CHEST TUBE. NO AIR LEAK. CT DRESSING DRY AND SECURE. LUBIN OUTPUT GOOD. IV SHOWS NO REDNESS,DRNG OR SWELLING. TOWEL TO BOLSTER HEAD STRAIGHT, SHE LOVES TO KEEP HER HEAD RIGHT. ROM TO EXTREMITIES. NO PERIPHERAL EDEMA. TOLERATING TUBE FEEDING. 15CC RESIDUAL. TEMPERATURE NORMAL.
--- NOTE | 2019-09-04 22:42 | NUR ---
PREVIOUS NOTE ON WRONG CHART.
[2019-09-05] VITALS (63 sets, daily range): BP systolic 88–147; BP diastolic 45–86
--- NOTE | 2019-09-05 | NUR ---
CHG BATH. COMPLETE LINEN CHANGE.
--- NOTE | 2019-09-05 02:00 | NUR ---
COOLING BLANKET. TYLENOL FOR MAX TEMP OF 100.8 R.
[2019-09-05] MEDS: ACETAMINOPHEN 650 mg PER 20 mL UD GT PRN ×2 (02:27→10:09)
[2019-09-05] MEDS: IPRATROPIUM BROM 0.5 MG/2.5ML INH SOL NEB SCH ×3 (02:47→10:08)
[2019-09-05] MEDS: ALBUTEROL SULF 2.5 MG/0.5ML(0.5%) NEB SOLN NEB SCH ×3 (02:47→10:08)
[2019-09-05] MEDS: PHENYLEPHRINE IV 250 ML IV SCH (03:22)
--- NOTE | 2019-09-05 04:00 | NUR ---
[facility] SENT. INCREASING PRECEDEX AND DECREASING THE VERSED AND FENTANYL. TEMP IS COMING DOWN. COOLING BLANKET OFF. CONTINUOUS RECTAL TEMP PROBE MONITORING. LUNGS CLEAR. NOTHING SUCTIONED FROM THE ETT.
[2019-09-05] MEDS: MIDAZOLAM DRIP 50 mg/50mL 50 ML IV SCH ×2 (04:55→13:59)
[2019-09-05 04:59] LABS: Basophils # (auto) 0.1 10 ^3/uL (0-0.2); Hemoglobin 8.4 g/dL (12.2-16.2)
[2019-09-05 05:01] LABS: Basophils % (auto) 0.8 % (0.0-2.0); Eosinophils # (auto) 0.3 10 ^3/uL (0-0.8); Eosinophils % (auto) 1.3 % (0.0-7.0); Mean Corpuscular Hemoglobin 30.3 pg (28.0-32.0); Mean Corpuscular Hgb Conc. 33.7 g/dL (32.0-36.0); Monocytes # (auto) 1.5 10 ^3/uL (0-1.3); Monocytes % (auto) 7.9 % (0.0-12.0); Neutrophils # (auto) 16.2 10 ^3/uL (1.6-8.6); Red Blood Cells 2.78 10^6/uL (4.0-5.20); Red Cell Distribution Width 14.2 % (11.8-14.3); White Blood Cell 19.1 10^3/uL (4.4-10.8)
[2019-09-05] MEDS: VANCOMYCIN 750mg/250ml 250 ML IV SCH (05:03)
[2019-09-05 05:05] LABS: Platelet Count (auto) 957 10^3/uL (140-450)
[2019-09-05 05:14] LABS: Calcium 8.2 mg/dL (8.5-10.1); Potassium 3.8 mmol/L (3.5-5.1)
[2019-09-05 05:16] LABS: BUN/Creatinine Ratio 29.4
[2019-09-05] MEDS: METOCLOPRAMIDE HCL 5MG/ml INJ 2ml VIAL IV SCH (06:10)
[2019-09-05] MEDS: TICAGRELOR 90 MG TAB PO SCH (06:10)
[2019-09-05] MEDS: MEROPENEM 1GM IVPB 100 ML IV SCH (06:11)
[2019-09-05] MEDS: fentaNYL Drip 2500mCg/250mlNS 250 ML IV SCH (06:11)
--- NOTE | 2019-09-05 08:00 | NUR ---
PT OFF ALL SEDATION JUST ON PRECEDEX AT 0.3 FOR CPAP TRIAL.
--- NOTE | 2019-09-05 08:00 | NUR ---
AM ASSESSMENT COMPLETED. ORAL CARE PROVIDED. CT TO RT UPPER CHEST WALL TO -20 CM H2O SEAL SUCTION. CHEST X-RAY STILL SHOWING PERSISTENT PNEUMO/ HEMOTHORAX, CT DRAINING SMALL AMOUNTS OF LIGHT MAROON SEROUS DRAINAGE. NO S+ S OF SUBCUTANEOUS EMPHYSEMA. PT REMAINS ON VENTILATOR ON AC MODE CURRENTLY ON 40% FIO2. PT HAVING MODERATE AMOUNTS OF THICK ROBBINS ORAL & ETT SECRETIONS. PT BEING WEAN OFF ALL SEDATION FOR CPAP TRIAL THIS AM. CURRENTLY ON LOW DOSE OF VERSED AND FENTANYL WHILE INCREASING PRECEDEX TO DECREASE ANXIETY. PT ON LEVOPHED FOR BP SUPPORT. LEVOPHED BEEN WEANED OFF TO SEDATION IS TITRATED OFF. PT HAS A DTI ON COCCYX, PT ON A COOLING BLANKET TO REGULATE FEVERS AND PT ALSO RECEIVING TYLENOL, PT HAS AN ELEVATED WBC. ALL ALARMS VERIFIED.
--- NOTE | 2019-09-05 08:40 | NUR ---
RECEIVED A PHONE CALL FROM [facility], THEY WANTED UPDATES ON MOST CURRENT VITAL SIGS AND THEY ALSO WANT A DOCTOR TO DOCTOR PHONE CALL WHEN THE PHYSICIAN ROUNDS ON PT.
--- NOTE | 2019-09-05 08:50 | NUR ---
I SEND A TEXT TO DR. RAMON TO NOTIFY HIM THAT [facility] IS REQUESTING A PHYSICIAN TO PHYSICIAN CONVERSATION FOR TRANSFER.
[2019-09-05] MEDS: PROPOFOL 100 ML IV SCH (09:22)
--- NOTE | 2019-09-05 09:42 | NUR ---
DR. RAMON TEXT ME BACK THAT HE WILL TAKE CARE OF IT.
[2019-09-05] MEDS: FAMOTIDINE (10MG/ML) 2ML VL IV SCH (10:05)
[2019-09-05] MEDS: ASPirin 81 mg TAB PO SCH (10:06)
[2019-09-05] MEDS: POTASSIUM EFFERVESENT TAB 25 MEQ GT SCH (10:06)
[2019-09-05] MEDS: POTASSIUM CHL 20MEQ/100ML 100 ML IV SCH (10:07)
[2019-09-05] MEDS: DexMEDEtomidine 400 MCG in D5W 5% 96 ML IV SCH (10:07)
--- NOTE | 2019-09-05 10:09 | NUR ---
TEMP 100.6 R PT ON COOLING BLANKET. GAVE TYLENOL 650 MG VIA NGT.
--- NOTE | 2019-09-05 11:02 | NUR ---
WOUND CARE NOTE: Wound care in to see patient for reevaluation of wound and skin integrity monitoring. Patient continue resting in ICU bed in Rm. 107. She's intubated, and mechanically ventilated. Patient appears to be in no pain using Ordonez Frye Faces Pain Scale. Her Paresh score is 14. Skin assessment done with the assistance of patient's nurse, RASTA Carmen. Chest tube site to upper anterior chest with C/D/I occlusive dressing. Patient developed early DTI to medial sacrum noted on 09/01/19. Pressure injury looks improving, skin remain intact with 2x2cm non-blanchable redness, no blistering noted. Grisel care given, applied Z Guard cream and covered with Opti foam sacral dressing. New photograph of wound are taken for reference. Patient tolerated well, reposition for comfort , redistributed pressure points with pillows. RASTA Carmen at bedside. RECOMMENDATION: Continuation of all wound care orders prescribed by MD, continue with skin/wound plan of care, continue monitoring by wound care while patient is hospitalized. Addendum: 09/05/19 at 1350 by Melissa Garcia RN Amended: Links added.
[2019-09-05] MEDS: NOREPINEPHRINE 8 MG/250ML KIT 250 ML IV SCH (11:58)
--- NOTE | 2019-09-05 12:17 | NUR ---
pt's spouse in to see pt ansd also to sign transfer paperwork.
--- NOTE | 2019-09-05 12:58 | NUR ---
gave pt's denture's to pt's spouse to take home.
--- NOTE | 2019-09-05 13:00 | NUR ---
GAVE REPORT TO [facility]O [facility].
--- NOTE | 2019-09-05 13:30 | NUR ---
[facility]ED[facility] AND [facility] SHOWED UP TO CAGE LOADER PT. I GAVE REPORT TO RN.
--- NOTE | 2019-09-05 14:21 | NUR ---
UPDATED PT'S ON [facility] VISITING HOURS AND POLICY.
--- NOTE | 2019-09-05 15:00 | NUR ---
[facility] CALLED TO CHECK ON PT'S STATUS. I NOTIFY THEM THAT PT WAS ALREADY TRANSFERRED TO [facility] SINCE 1400.
[2019-09-05] MEDS ORDERED: CARVEDILOL 3.125 MG TAB PO SCH (22:00)
== END 2019-09-05 14:20 | disposition short-term general hospital (02) | DRG 853 ==
LOC: ER 17:04 → CATH 1 17:56 → ICU WEST 18:42 → DOU IN ICU 08-21 20:32 → ICU WEST 08-22 22:13
PROVIDERS: ADMIT Internal Medicine; ATTEND Internal Medicine
PROC: 027237Z Dilation of Coronary Artery, Three Arteries with Four or More Drug-eluting Intraluminal Devices, Percutaneous Approach (ICD-10-PCS; principal; 2019-08-20)
PROC: B2111ZZ Fluoroscopy of Multiple Coronary Arteries using Low Osmolar Contrast (ICD-10-PCS; 2019-08-20)
PROC: 4A023N7 Measurement of Cardiac Sampling and Pressure, Left Heart, Percutaneous Approach (ICD-10-PCS; 2019-08-20)
PROC: 0W9930Z Drainage of Right Pleural Cavity with Drainage Device, Percutaneous Approach (ICD-10-PCS; 2019-08-21)
PROC: 5A1955Z Respiratory Ventilation, Greater than 96 Consecutive Hours (ICD-10-PCS; 2019-08-22)
PROC: 0BH18EZ Insertion of Endotracheal Airway into Trachea, Via Natural or Artificial Opening Endoscopic (ICD-10-PCS; 2019-08-22)
PROC: 30233N1 Transfusion of Nonautologous Red Blood Cells into Peripheral Vein, Percutaneous Approach (ICD-10-PCS; 2019-08-22)
PROC: 02HV33Z Insertion of Infusion Device into Superior Vena Cava, Percutaneous Approach (ICD-10-PCS; 2019-08-22)
PROC: B548ZZA Ultrasonography of Superior Vena Cava, Guidance (ICD-10-PCS; 2019-08-22)
PROC: 03HY32Z Insertion of Monitoring Device into Upper Artery, Percutaneous Approach (ICD-10-PCS; 2019-08-22)
PROC: 4A133B1 Monitoring of Arterial Pressure, Peripheral, Percutaneous Approach (ICD-10-PCS; 2019-08-22)
PROC: 4A133J1 Monitoring of Arterial Pulse, Peripheral, Percutaneous Approach (ICD-10-PCS; 2019-08-22)
PROC: 03HY32Z Insertion of Monitoring Device into Upper Artery, Percutaneous Approach (ICD-10-PCS; 2019-08-22)
PROC: 0W9930Z Drainage of Right Pleural Cavity with Drainage Device, Percutaneous Approach (ICD-10-PCS; 2019-08-23)
PROC: 0W9930Z Drainage of Right Pleural Cavity with Drainage Device, Percutaneous Approach (ICD-10-PCS; 2019-08-25)
PROC: 0WP9X0Z Removal of Drainage Device from Right Pleural Cavity, External Approach (ICD-10-PCS; 2019-08-25)
PROC: 0WCQ8ZZ Extirpation of Matter from Respiratory Tract, Via Natural or Artificial Opening Endoscopic (ICD-10-PCS; 2019-08-30)
PROC: 0B9C8ZX Drainage of Right Upper Lung Lobe, Via Natural or Artificial Opening Endoscopic, Diagnostic (ICD-10-PCS; 2019-08-30)
DX: A41.9 Sepsis, unspecified organism (principal); R65.21 Severe sepsis with septic shock; I21.02 ST elevation (STEMI) myocardial infarction involving left anterior descending coronary artery; N17.0 Acute kidney failure with tubular necrosis; J96.01 Acute respiratory failure with hypoxia; J96.02 Acute respiratory failure with hypercapnia; J69.0 Pneumonitis due to inhalation of food and vomit; I50.21 Acute systolic (congestive) heart failure; J93.83 Other pneumothorax; E87.1 Hypo-osmolality and hyponatremia; J94.2 Hemothorax; R71.0 Precipitous drop in hematocrit; E46 Unspecified protein-calorie malnutrition; J98.11 Atelectasis; Z03.818 Encounter for observation for suspected exposure to other biological agents ruled out; F17.210 Nicotine dependence, cigarettes, uncomplicated; E87.5 Hyperkalemia; J43.9 Emphysema, unspecified; I11.0 Hypertensive heart disease with heart failure; E78.5 Hyperlipidemia, unspecified; I25.10 Atherosclerotic heart disease of native coronary artery without angina pectoris; E83.39 Other disorders of phosphorus metabolism; E83.51 Hypocalcemia; E87.6 Hypokalemia; Z90.89 Acquired absence of other organs; Z98.51 Tubal ligation status; Z80.1 Family history of malignant neoplasm of trachea, bronchus and lung; Z80.8 Family history of malignant neoplasm of other organs or systems; Z68.23 Body mass index [BMI] 23.0-23.9, adult
CPT/HCPCS: 31500; 31624; 32555; 32556; 32557; 36620; 92928; 92929; 93458; 94002; 99291; C9606; 36415; 36600; 71045; 71250; 71275; 76705; 80048; 80053; 80202; 81001; 82306; 82570; 82805; 83036; 83605; 83735; 83880; 84100; 84132; 84300; 84484; 84550; 85007; 85014; 85018; 85025; 85027; 85610; 85730; 86850; 86900; 86901; 86920; 87040; 87070; 87077; 87081; 87086; 87186; 87205; 93005; 93306; 94003; 94640; 99152; 99153; A4618; C1724; C1874; G0378; J0171; J0330; J0610; J2001; J2185; J2250; J2405; J2543; J2704; J3480; J3490; J7060; P9047; Q9967